=== PATIENT | male | born 1955 | race Caucasian/White ===

== ENCOUNTER → 2016-04-14 | Outpatient (CLI) | payer MEDICARE ==
[~2016-04-14] MED LIST: ADV250INH INH; COMBAER6 INH; DUONSOL INH; LEVO500T32 PO; MOTR200T44 PO; PERC5TAB6 PO; PRED10PA PO; PROA1AER INH; TYLE325T5 PO; ZOLO100T PO; [UNRECOGNIZED DRUG - CODE] PO
--- NOTE | 2016-04-14 14:01 | REP ---
THREE-PHASE BONE SCAN OF THE HIPS AND PELVIS REGION. HISTORY: Renal stones with nephrostomy tube, right hip pain post hip replacement [address] study August 13, 2015. TECHNIQUE: 20.8 mCi technetium 99m MDP is injected and standard three-phase imaging was acquired. SCINTIGRAPHIC FINDINGS: The anterior and posterior pelvic flow images are normal. Blood pool images show photopenia related to the prosthetic components of the right hip. No hyperemia is appreciated. Delayed scan images show no evidence to suggest loosening or infection. IMPRESSION: Expected findings post right hip arthroplasty. Signed by Canelo Pepper MD 04/14/2016 03:10 P
== END ==
LOC: M RAD 10:00
PROVIDERS: ATTEND Orthopaedic Surgery
DX: M16.11 Unilateral primary osteoarthritis, right hip (principal); Z96.641 Presence of right artificial hip joint
CPT/HCPCS: 78315; A9503

== ENCOUNTER → 2016-04-25 | Outpatient (CLI) | payer MEDICARE ==
[2016-04-25 15:23] LABS: RBC ADVIA BF 0.06; RBC CALC. BF 60000 (< 10mm3 cells/uL); WBC ADVIA BF 7.3; WBC CALC. BF 7300 cells/uL (0-20)
[2016-04-25 15:24] LABS: SYNOVIAL FLUID COLOR ORANGE (YELLOW)
[2016-04-25 15:25] LABS: BF DIFF IF INDICATED? YES (NO)
[2016-04-25 15:38] LABS: HCT SOURCE RIGHT HIP
[2016-04-25 15:39] LABS: CC BF DIFF EXAM CYTOCENTRIFUGE
--- NOTE | 2016-04-25 16:50 | REP ---
RIGHT HIP ASPIRATION: The procedure was performed under the direct supervision of Dr. Pepper. The risks and benefits of the procedure were explained to the patient and informed consent was obtained. The right hip prosthesis was localized using fluoroscopic guidance. The skin was prepped and draped in a sterile fashion. 1% Lidocaine was used as a local anesthetic. Using fluoroscopic guidance, a #22-gauge spinal needle was inserted and advanced to the prosthetic femoral neck. Approximately 2 mL of yellowish fluid was withdrawn and sent to the lab. The patient tolerated the procedure well and there were no immediate complications. 3 seconds of fluoroscopy time was utilized for this procedure. Reviewed by JAY Arenas 04/25/2016 05:05 PEdited and Signed by Canelo Pepper MD 04/26/2016 12:29 P
== END ==
LOC: M RADPRO 10:24
PROVIDERS: ATTEND Orthopaedic Surgery
DX: M25.551 Pain in right hip (principal); Z96.641 Presence of right artificial hip joint

== ENCOUNTER → 2016-04-28 | Outpatient (CLI) | payer MEDICARE ==
[2016-04-28 09:39] LABS: BASO % 0.5 % (0.0-1.0); EOS # 0.1 K/mm3 (0.0-0.50); EOS % 2.3 % (0.0-3.0); LARGE UNSTAINED CELL # 0.1 K/mm3 (0.0-0.4); LARGE UNSTAINED CELL % 2.4 % (0.0-4.0); LYMPH # 1.6 K/mm3 (1.5-4.5); LYMPH % 27.2 % (24.0-44.0); MEAN CORPUSCULAR HEMOGLOBIN 30.1 pg (27.0-33.0); MEAN CORPUSCULAR HGB CONC 33.8 g/dl (32.0-36.5); MEAN CORPUSCULAR VOLUME 89.1 fl (80.0-96.0); MONO # 0.3 K/mm3 (0.0-0.8); MONO % 4.7 % (0.0-5.0); NEUTROPHILS # 3.6 K/mm3 (1.8-7.7); NEUTROPHILS % 62.9 % (36.0-66.0); PLATELET COUNT, AUTOMATED 193 k/mm3 (150-450); RED CELL DISTRIBUTION WIDTH 11.8 % (11.5-14.5); WHITE BLOOD COUNT 5.7 K/mm3 (4.0-10.0)
[2016-04-28 10:02] LABS: ALBUMIN 3.8 GM/DL (3.2-5.2); ALBUMIN/GLOBULIN RATIO 1.31 (1.00-1.93); ALKALINE PHOSPHATASE 93 U/L (45-117); ALT/SGPT 24 U/L (12-78); ANION GAP 8 MEQ/L (8-16); AST/SGOT 13 U/L (15-37); BILIRUBIN,TOTAL 0.4 MG/DL (0.2-1.0); BLOOD UREA NITROGEN 10 MG/DL (7-18); CALCIUM LEVEL 8.4 MG/DL (8.8-10.2); CARBON DIOXIDE LEVEL 27 MEQ/L (21-32); CHLORIDE LEVEL 105 MEQ/L (98-107); CHOLESTEROL LEVEL 218 MG/DL (<200); CREATININE FOR GFR 0.82 MG/DL (0.70-1.30); GLOMERULAR FILTRATION RATE > 60.0 (>49); GLUCOSE, FASTING 109 MG/DL (80-110); POTASSIUM SERUM 4.1 MEQ/L (3.5-5.1); SODIUM LEVEL 140 MEQ/L (136-145); TOTAL PROTEIN 6.7 GM/DL (6.4-8.2); TRIGLYCERIDES LEVEL 156 MG/DL (<150)
== END ==
LOC: M LAB 08:48
PROVIDERS: ATTEND Internal Medicine
DX: N40.1 Benign prostatic hyperplasia with lower urinary tract symptoms (principal); I10 Essential (primary) hypertension; M16.11 Unilateral primary osteoarthritis, right hip; M62.838 Other muscle spasm; Z96.641 Presence of right artificial hip joint

== ENCOUNTER → 2016-04-28 | Outpatient (CLI) | payer MEDICARE ==
[2016-04-28 09:40] LABS: BASO % 0.4 % (0.0-1.0); EOS # 0.1 K/mm3 (0.0-0.50); EOS % 2.1 % (0.0-3.0); LARGE UNSTAINED CELL # 0.2 K/mm3 (0.0-0.4); LARGE UNSTAINED CELL % 2.8 % (0.0-4.0); LYMPH # 1.4 K/mm3 (1.5-4.5); LYMPH % 25.9 % (24.0-44.0); MEAN CORPUSCULAR HEMOGLOBIN 30.4 pg (27.0-33.0); MEAN CORPUSCULAR HGB CONC 34.2 g/dl (32.0-36.5); MEAN CORPUSCULAR VOLUME 88.9 fl (80.0-96.0); MONO # 0.3 K/mm3 (0.0-0.8); MONO % 5.4 % (0.0-5.0); NEUTROPHILS # 3.5 K/mm3 (1.8-7.7); NEUTROPHILS % 63.4 % (36.0-66.0); PLATELET COUNT, AUTOMATED 206 k/mm3 (150-450); RED CELL DISTRIBUTION WIDTH 11.8 % (11.5-14.5); WHITE BLOOD COUNT 5.5 K/mm3 (4.0-10.0)
[2016-04-28 10:14] LABS: ERYTHROCYTE SEDIMENTATION RATE 7 mm/hr (0-20)
[2016-04-30 00:08] LABS: Lyme Disease IgG/IgM Antibodie <0.91 ISR (0.00-0.90); Lyme Disease IgM Ab Quantitati <0.80 index (0.00-0.79)
== END ==
LOC: M LAB 08:43
PROVIDERS: ATTEND Orthopaedic Surgery
DX: M16.11 Unilateral primary osteoarthritis, right hip (principal); M62.838 Other muscle spasm; Z96.641 Presence of right artificial hip joint

== ENCOUNTER → 2016-05-18 | Outpatient (CLI) | payer MEDICARE, MEDICAID ==
--- NOTE | 2016-05-18 12:55 | REP ---
Clinical: Right hip pain status post arthroplasty. Technique: Axial noncontrast images of the hip with coronal and sagittal re-formations. Findings: The acetabular and femoral components of the hip prosthesis are normal in position and appearance. There is no evidence for periprosthetic lucencies or osseous abnormalities. There is no evidence for fracture or dislocation. No periosteal reaction is appreciated. The surrounding musculature and soft tissues are normal in appearance. No abnormal fluid collections or inflammatory changes are identified. Impression: Normal noncontrast hip CT with normal appearance and positioning to the prosthesis. Signed by Andrei Rosenberg MD 05/18/2016 12:45 P
== END ==
LOC: M RAD 11:55
PROVIDERS: ATTEND Orthopaedic Surgery
DX: M25.551 Pain in right hip (principal); Z96.641 Presence of right artificial hip joint

== ENCOUNTER 2016-07-01 16:23 | Emergency (ER) | payer MEDICAID, MEDICARE ==
[~2016-07-01] VITALS: Ht 157.5 cm; Wt 74.4 kg
[2016-07-01 16:23] VITALS: BP 162/96
[2016-07-01] MEDS ORDERED: SIME180C PO (19:47)
[2016-07-01] MEDS ORDERED: COLA100C3 PO (19:47)
--- NOTE | 2016-07-01 20:58 | REP ---
Abdominal series: Three views. History: Constipation, abdominal bloating. Comparison study May 07, 2015. Findings: Upright chest radiograph shows no evidence of infiltrate or free subdiaphragmatic air. Heart is not enlarged. No change from comparison study May 07, 2015. Supine and erect views of the abdomen show a right hip replacement. There is air and stool in a nondistended colon. There is a solitary loop of left mid abdominal small bowel. Psoas margins are symmetric. Flank stripes are intact. Vascular calcification is seen. No bony abnormality is appreciated. Impression: Nonspecific left central abdominal bowel loop. No acute abnormality seen. Signed by Canelo Pepper MD 07/02/2016 07:52 A
== END 2016-07-01 20:09 | disposition home or self-care (01) ==
LOC: M ED 17:29
DX: R30.0 Dysuria (principal); R19.7 Diarrhea, unspecified; Z79.899 Other long term (current) drug therapy; Z79.1 Long term (current) use of non-steroidal anti-inflammatories (NSAID); G43.909 Migraine, unspecified, not intractable, without status migrainosus; J44.9 Chronic obstructive pulmonary disease, unspecified; M54.9 Dorsalgia, unspecified; F32.9 Major depressive disorder, single episode, unspecified

== ENCOUNTER → 2016-07-20 | Outpatient (CLI) | payer MEDICARE ==
[~2016-07-20] MED LIST changes: +COLA100C3 PO; +SIME180C PO
--- NOTE | 2016-07-20 14:44 | REP ---
REASON: Esophageal disease. COMPARISON: 08/13/2015 also without contrast. The lack of intravenous contrast decrease the sensitivity of the exam. There is no significant change in the appearance of the lung bases. There are nodules status quo. Limited evaluation of the solid intra-abdominal organs and gallbladder show no gross abnormalities or significant changes from the prior exam. Limited evaluation of the pancreas, adrenal glands, and kidneys show no significant changes from the prior exam. There is a simple Bosniak class I left renal cyst status quo. Limited evaluation of the abdominal aorta and para-aortic region show no gross abnormalities or significant changes from the prior exam. There is no free fluid or free air in the abdomen. There is no evidence of an intra-abdominal mass or adenopathy. The bowel loops and their mesenteries are essentially unchanged and remain within normal limits. CT PELVIS: The bowel loops and their mesenteries are within normal limits. There is spray artifact arising from a right hip prosthesis obscuring multiple pelvic images. There is no mass or adenopathy. There is no free fluid or free air. Bone window technique through the exam shows no acute change in the osseous structures compared to the prior exam. IMPRESSION: No acute intra-abdominal or intrapelvic disease. Findings as described above. Signed by Carroll Blue DO 07/20/2016 02:47 P
== END ==
LOC: M RAD 13:09
PROVIDERS: ATTEND Internal Medicine
DX: K22.9 Disease of esophagus, unspecified (principal)

== ENCOUNTER → 2016-07-25 | Outpatient (CLI) | payer MEDICARE ==
[~2016-07-25] MED LIST changes: +E-Z-GAS II EFFERVESCENT PACKET (SODIUM BICARB./CITRIC ACID/SIMETHICONE) As Ordered ONE; +E-Z-HD 98% w/w 340GM SUSP BTL As Ordered ONE; +E-Z-PAQUE 96% w/w SUSP 176GM BTL As Ordered ONE
--- NOTE | 2016-07-25 16:35 | REP ---
ESOPHAGRAM: The procedure was performed under the direct supervision of Dr. Trivedi. The images were reviewed with Dr. Trivedi. This exam is in conjunction with an upper GI and small bowel through. Those exams will be dictated separately. A single view PA chest x-ray is submitted as a core loader film. There is no change compared to a previous chest x-ray performed on 07/01/2016. Liquid barium and gas-producing granules were given in the erect position as well as liquid barium in the prone oblique positions in order to perform a double-contrast esophagram examination. The oral and pharyngeal stages of deglutition are unremarkable. Esophageal transport is prompt and efficient and there is no esophagitis, stricture, mucosal ring, or hiatal hernia. Gastroesophageal reflux is not demonstrated on this examination. IMPRESSION: Double contrast esophagram examination within normal limits. This exam, in conjunction with the upper GI and small bowel follow through, had a total fluoroscopy time of 3 minutes and 39 seconds. Reviewed by JAY Arenas 07/25/2016 04:54 PEdited and Signed by Marcos Trivedi MD 07/25/2016 05:38 P
--- NOTE | 2016-07-25 16:40 | REP ---
UPPER GI, AIR CONTRAST, AND SMALL BOWEL FOLLOW THROUGH: The procedure was performed under the direct supervision of Dr. Trivedi. The images were reviewed with Dr. Trivedi. The package line operator film shows no organomegaly or pathological masses. The intestinal gas pattern is nonspecific. There are vascular calcifications identified. The patient is status post right hip arthroplasty. An esophagram was performed and dictated separately. Liquid barium and gas-producing granules were given in the erect position as well as liquid barium in the prone oblique position in order to perform a double contrast upper GI and small bowel follow through examination. The stomach curry are normally outlined. The rugal folds are smooth and regular. There is no gastritis, neoplasm or ulcer disease. The duodenal curry are normally outlined. The mucosal folds are smooth and regular. There is no duodenitis, pancreatitis, peptic ulcer disease or neoplasm. The visualized portion of the proximal small bowel appears normal in course and caliber. The barium column was followed through the small bowel to the level of the terminal ileum. Small bowel transit time is rapid as contrast is seen in the descending colon on the 0 minute film. During fluoroscopy gentle palpation shows all loops are freely moveable and pliable. There are no fixed or angulated loops. The small bowel mucosal pattern is normal in course and caliber. There is no transition to suggest a partial small bowel obstruction. Spot filming of the terminal ileum shows it to be unremarkable. IMPRESSION: There is rapid small bowel transit time as contrast is seen in the descending colon on the 0 minute film. Otherwise, unremarkable double contrast upper GI and small bowel follow through examination. This study in conjunction with the esophagram had a total fluoroscopy time of 3 minutes and 39 seconds. Reviewed by JAY Arenas 07/25/2016 04:56 PEdited and Signed by Marcos Trivedi MD 07/25/2016 05:38 P
== END ==
LOC: M RAD 09:43
PROVIDERS: ATTEND Internal Medicine
DX: K22.9 Disease of esophagus, unspecified (principal)

== ENCOUNTER → 2016-11-03 | Outpatient (CLI) | payer MEDICAID, MEDICARE ==
[~2016-11-03] MED LIST changes: -COLA100C3 PO; +COLA100C5 PO; -E-Z-GAS II EFFERVESCENT PACKET (SODIUM BICARB./CITRIC ACID/SIMETHICONE) As Ordered ONE; -E-Z-HD 98% w/w 340GM SUSP BTL As Ordered ONE; -E-Z-PAQUE 96% w/w SUSP 176GM BTL As Ordered ONE; +LEVO500T3 PO; -LEVO500T32 PO; +PERC5TAB12 PO; -PERC5TAB6 PO; -PROA1AER INH; +PROAAER10 INH
[2016-11-03 14:22] LABS: BASO % 0.4 % (0.0-1.0); EOS # 0.1 K/mm3 (0.0-0.50); EOS % 2.5 % (0.0-3.0); LARGE UNSTAINED CELL # 0.1 K/mm3 (0.0-0.4); LARGE UNSTAINED CELL % 1.5 % (0.0-4.0); LYMPH # 1.2 K/mm3 (1.5-4.5); LYMPH % 19.4 % (24.0-44.0); MEAN CORPUSCULAR HEMOGLOBIN 31.1 pg (27.0-33.0); MEAN CORPUSCULAR HGB CONC 34.7 g/dl (32.0-36.5); MEAN CORPUSCULAR VOLUME 89.5 fl (80.0-96.0); MONO # 0.3 K/mm3 (0.0-0.8); MONO % 5.6 % (0.0-5.0); NEUTROPHILS # 4.1 K/mm3 (1.8-7.7); NEUTROPHILS % 70.7 % (36.0-66.0); PLATELET COUNT, AUTOMATED 183 k/mm3 (150-450); RED CELL DISTRIBUTION WIDTH 12.4 % (11.5-14.5); WHITE BLOOD COUNT 5.8 K/mm3 (4.0-10.0)
[2016-11-03 14:46] LABS: ALBUMIN/GLOBULIN RATIO 1.18 (1.00-1.93); ALKALINE PHOSPHATASE 96 U/L (45-117); ALT/SGPT 26 U/L (12-78); AMYLASE 47 U/L (25-115); ANION GAP 3 MEQ/L (8-16); AST/SGOT 10 U/L (15-37); BILIRUBIN,TOTAL 0.3 MG/DL (0.2-1.0); BLOOD UREA NITROGEN 11 MG/DL (7-18); CARBON DIOXIDE LEVEL 30 MEQ/L (21-32); CHLORIDE LEVEL 106 MEQ/L (98-107); CREATININE FOR GFR 0.68 MG/DL (0.70-1.30); FREE T4 0.99 NG/DL (0.76-1.46); GLOMERULAR FILTRATION RATE > 60.0 (>49); GLUCOSE, FASTING 84 MG/DL (80-110); POTASSIUM SERUM 4.1 MEQ/L (3.5-5.1); SODIUM LEVEL 139 MEQ/L (136-145); TOTAL PROTEIN 7.4 GM/DL (6.4-8.2)
== END ==
LOC: M LAB 13:47
PROVIDERS: ATTEND Internal Medicine
DX: I10 Essential (primary) hypertension (principal); K22.9 Disease of esophagus, unspecified

== ENCOUNTER → 2017-02-13 | Outpatient (CLI) | payer MEDICARE ==
--- NOTE | 2017-02-13 13:27 | REP ---
Clinical: Acute bronchitis. Technique: PA and lateral. Comparison: 07/25/2016. Findings: Mediastinum and cardiac silhouette are within normal limits and stable. Lung farmer demonstrate chronic stable interstitial changes and trace right middle lobe atelectasis cannot be excluded. No effusion or pneumothorax. Skeletal structures are intact. Impression: Chronic interstitial changes. Cannot exclude trace right middle lobe atelectasis. Signed by Andrei Rosenberg MD 02/13/2017 01:18 P
[2017-02-13 13:49] LABS: BASO % 0.3 % (0.0-1.0); EOS # 0.1 10^3/uL (0.0-0.50); EOS % 0.5 % (0.0-3.0); IMMATURE GRANULOCYTE % 0.4 % (0-0); LYMPH # 0.7 10^3/uL (1.5-4.5); LYMPH % 5.5 % (24.0-44.0); MEAN CORPUSCULAR HGB CONC 35.2 g/dl (32.0-36.5); MONO # 0.6 10^3/uL (0.0-0.8); MONO % 5.1 % (0.0-5.0); NEUTROPHILS # 10.3 10^3/uL (1.8-7.7); NEUTROPHILS % 88.2 % (36.0-66.0); PLATELET COUNT, AUTOMATED 193 10^3/uL (150-450); RED CELL DISTRIBUTION WIDTH 12.8 % (11.5-14.5); WHITE BLOOD COUNT 11.7 10^3/uL (4.0-10.0)
[2017-02-13 14:41] LABS: ALBUMIN 3.6 GM/DL (3.2-5.2); ALBUMIN/GLOBULIN RATIO 1.33 (1.00-1.93); ALKALINE PHOSPHATASE 77 U/L (45-117); ALT/SGPT 19 U/L (12-78); ANION GAP 9 MEQ/L (8-16); AST/SGOT 10 U/L (7-37); BILIRUBIN,TOTAL 0.2 MG/DL (0.2-1.0); BLOOD UREA NITROGEN 13 MG/DL (7-18); CALCIUM LEVEL 8.5 MG/DL (8.8-10.2); CARBON DIOXIDE LEVEL 27 MEQ/L (21-32); CHLORIDE LEVEL 105 MEQ/L (98-107); CHOLESTEROL LEVEL 250 MG/DL (<200); CREATININE FOR GFR 0.66 MG/DL (0.70-1.30); GLOMERULAR FILTRATION RATE > 60.0 (>49); GLUCOSE, FASTING 109 MG/DL (80-110); POTASSIUM SERUM 4.1 MEQ/L (3.5-5.1); SODIUM LEVEL 141 MEQ/L (136-145); TOTAL PROTEIN 6.3 GM/DL (6.4-8.2); TRIGLYCERIDES LEVEL 220 MG/DL (<150)
--- NOTE | 2017-02-13 21:15 | ECGEPIP ---
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
== END ==
LOC: M LAB 12:24
PROVIDERS: ATTEND Internal Medicine
DX: J84.9 Interstitial pulmonary disease, unspecified (principal); J44.0 Chronic obstructive pulmonary disease with (acute) lower respiratory infection

== ENCOUNTER → 2017-02-20 | Outpatient (REF) | payer MEDICARE | LOC: M LAB REF 16:26 | PROVIDERS: ATTEND Internal Medicine | DX: J20.9 Acute bronchitis, unspecified (principal) ==

== ENCOUNTER → 2017-03-10 | Outpatient (CLI) | payer MEDICARE ==
--- NOTE | 2017-03-10 15:20 | REP ---
CT study of the chest without contrast: History: Abnormal lung field findings. Comparison chest x-ray February 13, 2017. Comparison chest CT study February 05, 2015. CT findings: There is linear plate-like atelectasis in the lingula as well as in the right middle lobe. No pleural effusion or pericardial effusion is seen. Some vascular calcification is noted. No hilar or mediastinal mass or adenopathy is observed. No adrenal lesion is seen on either side. Visualized upper abdominal structures are unremarkable. No bony destructive lesion is seen. There are multiple subcentimeter noncalcified pulmonary nodules scattered about the lung farmer bilaterally. The largest of these is 4 mm. They are unchanged from the comparison CT study of February 05, 2015. No new pulmonary nodule is appreciated. There is some mucoid material along the inferior wall of the left mainstem bronchus on today's CT study. No other endobronchial lesion is seen. Impression: Multiple stable pulmonary nodules 4 mm in size and smaller. Right middle lobe and lingular plate-like atelectasis. Otherwise no acute disease. Signed by Canelo Pepper MD 03/10/2017 04:16 P
== END ==
LOC: M RAD 10:23
PROVIDERS: ATTEND Internal Medicine Pulmonary Disease
DX: R91.8 Other nonspecific abnormal finding of lung field (principal)

== ENCOUNTER → 2017-07-31 | Outpatient (CLI) | payer MEDICARE, MEDICAID ==
[2017-07-31 15:53] LABS: BASO % 0.2 % (0.0-1.0); EOS # 0.1 10^3/uL (0.0-0.50); EOS % 1.7 % (0.0-3.0); HEMATOCRIT 41.2 % (42.0-52.0); HEMOGLOBIN 14.5 g/dl (13.5-17.5); IMMATURE GRANULOCYTE % 0.4 % (0-3.0); LYMPH % 18.1 % (24.0-44.0); MEAN CORPUSCULAR HEMOGLOBIN 30.5 pg (27.0-33.0); MEAN CORPUSCULAR HGB CONC 35.2 g/dl (32.0-36.5); MEAN CORPUSCULAR VOLUME 86.6 fl (80.0-96.0); MONO # 0.4 10^3/uL (0.0-0.8); MONO % 6.8 % (0.0-5.0); NEUTROPHILS # 3.8 10^3/uL (1.8-7.7); NEUTROPHILS % 72.8 % (36.0-66.0); PLATELET COUNT, AUTOMATED 194 10^3/uL (150-450); RED BLOOD COUNT 4.76 10^6/uL (4.30-6.10); RED CELL DISTRIBUTION WIDTH 11.9 % (11.5-14.5); WHITE BLOOD COUNT 5.3 10^3/uL (4.0-10.0)
[2017-07-31 15:55] LABS: APPEARANCE, URINE HAZY (CLEAR); BACTERIA, URINE AUTO NEGATIVE (NEGATIVE); BILIRUBIN, URINE AUTO NEGATIVE (NEGATIVE); BLOOD, URINE BLOOD NEGATIVE (NEGATIVE); COLOR, URINE YELLOW (YELLOW); GLUCOSE, URINE (UA) AUTO NEGATIVE (NEGATIVE); KETONE, URINE AUTO NEGATIVE (NEGATIVE); LEUKOCYTE ESTERASE, URINE AUTO NEGATIVE (NEGATIVE); MUCUS, URINE SMALL (NEGATIVE); NITRITE, URINE AUTO NEGATIVE (NEGATIVE); PROTEIN, URINE AUTO NEGATIVE (NEGATIVE); RBC, URINE AUTO 2 /HPF (0-3); SPECIFIC GRAVITY URINE AUTO 1.023 (1.002-1.035); SQUAMOUS EPITHELIAL CELL UR AU 0 /HPF (0-6); UROBILINOGEN, URINE AUTO 0.2 mg/dL (0.0-2.0); WBC, URINE AUTO 1 /HPF (0-3)
[2017-07-31 16:42] LABS: ALBUMIN 3.9 GM/DL (3.2-5.2); ALBUMIN/GLOBULIN RATIO 1.22 (1.00-1.93); ALKALINE PHOSPHATASE 86 U/L (45-117); ALT/SGPT 22 U/L (12-78); ANION GAP 7 MEQ/L (8-16); AST/SGOT 17 U/L (7-37); BILIRUBIN,TOTAL 0.5 MG/DL (0.2-1.0); BLOOD UREA NITROGEN 9 MG/DL (7-18); CALCIUM LEVEL 8.6 MG/DL (8.8-10.2); CARBON DIOXIDE LEVEL 25 MEQ/L (21-32); CHLORIDE LEVEL 108 MEQ/L (98-107); CHOLESTEROL LEVEL 219 MG/DL (<200); CHOLESTEROL RISK RATIO 5.341 (<5); CREATININE FOR GFR 0.83 MG/DL (0.70-1.30); GLOMERULAR FILTRATION RATE > 60.0 (>49); GLUCOSE, FASTING 100 MG/DL (70-100); HDL CHOLESTEROL 41 MG/DL (>40); LDL CHOLESTEROL 142.6 MG/DL (<100); NON-HDL-C 178 MG/DL; POTASSIUM SERUM 4.2 MEQ/L (3.5-5.1); PROSTATIC SPECIFIC AG MONITOR 0.85 NG/ML (< 4.0); SODIUM LEVEL 140 MEQ/L (136-145); THYROID STIMULATING HORMONE 0.722 uIU/ML (0.358-3.740); TOTAL PROTEIN 7.1 GM/DL (6.4-8.2); TRIGLYCERIDES LEVEL 177 MG/DL (<150)
== END ==
LOC: M LAB 15:24
DX: N40.1 Benign prostatic hyperplasia with lower urinary tract symptoms (principal); I10 Essential (primary) hypertension
CPT/HCPCS: 84443

== ENCOUNTER → 2018-05-05 | Outpatient (CLI) | payer MEDICARE ==
--- NOTE | 2018-05-06 10:10 | REP ---
RIGHT RIB SERIES: Four views of the right ribs are performed. I see no fracture or bone lesion. An accompanying PA view of the chest demonstrates no acute infiltrate, pneumothorax, or pleural effusion. Heart is not significantly enlarged. There is mild calcification of the thoracic aorta. IMPRESSION: No evidence of right rib fracture. Electronically Signed by Marcos Trivedi MD 05/06/2018 06:59 P
== END ==
LOC: M WUC 15:35
PROVIDERS: ATTEND Physician Assistant
DX: S20.211A Contusion of right front wall of thorax, initial encounter (principal); X58.XXXA Exposure to other specified factors, initial encounter; Y92.89 Other specified places as the place of occurrence of the external cause; Y93.9 Activity, unspecified; Y99.9 Unspecified external cause status

== ENCOUNTER → 2018-05-17 | Outpatient (CLI) | payer MEDICARE ==
--- NOTE | 2018-05-17 17:37 | REP ---
Low-dose lung screening CT: Comparison is the chest CT dated 03/10/2017. Now The studies performed without IV contrast. The images are presented at lung windowing only. There are multiple tiny lung nodules bilaterally measuring up to 4 mm, unchanged in size or number from the prior study. There are no acute infiltrates or pleural effusions. There are no new lung nodules. Impression: Category II low-dose lung screening CT. The incidence of malignancy is less than 1%. Annual follow-up lung screening CT is recommended. Electronically Signed by Marcos Gaitan MD 05/17/2018 05:28 P
== END ==
LOC: M RAD 13:49
PROVIDERS: ATTEND Internal Medicine Pulmonary Disease
DX: Z87.891 Personal history of nicotine dependence (principal); Z12.2 Encounter for screening for malignant neoplasm of respiratory organs

== ENCOUNTER → 2018-05-30 | Outpatient (REF) | payer MEDICARE, MEDICAID ==
[2018-05-30 18:56] LABS: ALT/SGPT 20 U/L (12-78); BILIRUBIN,TOTAL 0.3 MG/DL (0.2-1.0); BLOOD UREA NITROGEN 14 MG/DL (7-18); C REACTIVE PROTEIN QUANTITATIV < 0.30 MG/DL (0.00-0.30); CALCIUM LEVEL 8.2 MG/DL (8.8-10.2); CARBON DIOXIDE LEVEL 27 MEQ/L (21-32); CHLORIDE LEVEL 108 MEQ/L (98-107); CREATININE FOR GFR 0.87 MG/DL (0.70-1.30); GLOMERULAR FILTRATION RATE > 60.0 (>49); GLUCOSE, FASTING 101 MG/DL (70-100); POTASSIUM SERUM 3.8 MEQ/L (3.5-5.1); RHEUMATOID FACTOR QUANT < 10.0 IU/ML (<15.0); SODIUM LEVEL 143 MEQ/L (136-145); TOTAL PROTEIN 6.9 GM/DL (6.4-8.2)
[2018-05-30 19:06] LABS: HEMATOCRIT 41.7 % (42.0-52.0); HEMOGLOBIN 14.4 g/dl (13.5-17.5); MEAN CORPUSCULAR HGB CONC 34.5 g/dl (32.0-36.5); MEAN CORPUSCULAR VOLUME 86.9 fl (80.0-96.0); PLATELET COUNT, AUTOMATED 182 10^3/uL (150-450)
[2018-05-30 19:41] LABS: ERYTHROCYTE SEDIMENTATION RATE 6 mm/hr (0-20)
[2018-06-02 00:07] LABS: ANTINUCLEAR ANTIBODIES DIRECT Negative (Negative); Lyme Disease IgG/IgM Antibodie <0.91 ISR (0.00-0.90); Lyme Disease IgM Ab Quantitati <0.80 index (0.00-0.79)
== END ==
LOC: M LABDRWCV 17:08 → M LAB REF 17:08
PROVIDERS: ATTEND Internal Medicine
DX: M06.4 Inflammatory polyarthropathy (principal)

== ENCOUNTER 2018-07-14 16:09 | Inpatient (IN) | payer MEDICAID, MEDICARE ==
[~2018-07-14] VITALS: Ht 157.5 cm; Wt 68.2 kg
[2018-07-14] MEDS ORDERED: MOBI4TAB PO (16:24)
[2018-07-14] MEDS ORDERED: SPIR1CAP INH (16:24)
[2018-07-14] MEDS ORDERED: PANT40TA3 PO (16:24)
[2018-07-14] MEDS: IPRATROPIUM 0.5MG/ALBUTEROL 2.5MG INH SOL UD 3ML (DUONEB)(J7620) NEB PRN ×2 (16:38→16:58)
[2018-07-14] MEDS ORDERED: methylPREDNISolone INJ 125 MG/2 ML VIAL (J2930) IV ONE (16:45)
[2018-07-14 16:59] LABS: ABG BASE EXCESS 0.2 (-2.0-2.0); ABG HCO3 24.4 MEQ/L (22.0-26.0); ABG O2 SATURATION 93.1 % (95.0-99.0); ABG PARTIAL PRESSURE CO2 38.4 mmHg (35.0-45.0); ABG STANDARD HCO3 24.5 MEQ/L (22.0-26.0); ABG TOTAL CO2 25.6 MEQ/L (23.0-31.0); ABG pH (ARTERIAL) 7.421 UNITS (7.350-7.450)
[2018-07-14 17:10] LABS: BASO % 0.2 % (0.0-1.0); HEMATOCRIT 40.9 % (42.0-52.0); HEMOGLOBIN 14.4 g/dl (13.5-17.5); LYMPH # 0.3 10^3/uL (1.5-4.5); LYMPH % 5.3 % (24.0-44.0); MEAN CORPUSCULAR HEMOGLOBIN 30.6 pg (27.0-33.0); MEAN CORPUSCULAR HGB CONC 35.2 g/dl (32.0-36.5); MONO # 0.1 10^3/uL (0.0-0.8); MONO % 1.1 % (0.0-5.0); NEUTROPHILS # 5.8 10^3/uL (1.8-7.7); NEUTROPHILS % 92.8 % (36.0-66.0); PLATELET COUNT, AUTOMATED 183 10^3/uL (150-450); WHITE BLOOD COUNT 6.3 10^3/uL (4.0-10.0)
[2018-07-14 17:32] LABS: BLOOD UREA NITROGEN 14 MG/DL (7-18); CALCIUM LEVEL 8.3 MG/DL (8.8-10.2); CARBON DIOXIDE LEVEL 28 MEQ/L (21-32); CHLORIDE LEVEL 105 MEQ/L (98-107); CPK CREATINE PHOSPHOKINASE 105 U/L (39-308); CREATININE FOR GFR 0.79 MG/DL (0.70-1.30); GLOMERULAR FILTRATION RATE > 60.0 (>49); GLUCOSE, FASTING 194 MG/DL (70-100); NT-PRO BNP 55 PG/ML (<125); POTASSIUM SERUM 4.2 MEQ/L (3.5-5.1); SODIUM LEVEL 138 MEQ/L (136-145); THYROID STIMULATING HORMONE 0.072 uIU/ML (0.358-3.740); TROPONIN I < 0.02 NG/ML (< 0.10)
[2018-07-14 19:06] VITALS: O2SAT 84
[2018-07-14] MEDS ORDERED: ISOVUE-370 76% 100ML VIAL (Q9967) As Ordered ONE (19:35)
[2018-07-14] MEDS ORDERED: ALBU83IN NEB (20:13)
[2018-07-14] MEDS ORDERED: OXYC10TA3 PO (20:13)
[2018-07-14] MEDS ORDERED: IPRA0.00 IN (20:13)
[2018-07-14] MEDS ORDERED: PRED10PA2 PO (20:15)
[2018-07-14] MEDS ORDERED: ACETAMINOPHEN TAB 650MG DOSE (2X325MG) PO PRN (20:30)
[2018-07-14] MEDS ORDERED: PERCOCET 5MG/325MG TAB PO PRN (20:30)
[2018-07-14] MEDS ORDERED: IPRATROPIUM 0.5MG/ALBUTEROL 2.5MG INH SOL UD 3ML (DUONEB)(J7620) NEB PRN (20:30)
--- NOTE | 2018-07-14 20:38 | REPVR ---
EXAM: CT Angiography Chest With Contrast EXAM DATE/TIME: 07/14/2018 7:38 PM CLINICAL HISTORY: 63 years old, male; Abnormal findings; Abnormal radiologic exam of lung or chest and lung mass or nodule; Not specified; Additional info: New lung nodule on CT TECHNIQUE: Imaging protocol: Axial computed tomographic angiography images of the chest with intravenous contrast using CT angiography protocol. Coronal and sagittal reformatted images were created and reviewed. 3D rendering: MIP reconstructed images were created and reviewed. Radiation optimization: All CT scans at this facility use at least one of these dose optimization techniques: automated exposure control; mA and/or kV adjustment per patient size (includes targeted exams where dose is matched to clinical indication); or iterative reconstruction. Contrast material: ISOVUE 370; Contrast volume: 75 ml; Contrast route: IV; COMPARISON: CT Chest without contrast 03/10/2017 10:52 AM FINDINGS: Pulmonary arteries: The main pulmonary artery measures 27 mm. No pulmonary embolism is identified. Aorta: The ascending thoracic aorta measures 28 mm. Lungs: Slight interstitial prominence with minimal fibro-atelectatic change in the right middle lobe adjacent to the major fissure. Pleural space: Normal. No pneumothorax. No pleural effusion. Heart: Normal. No cardiomegaly. No pericardial effusion. Lymph nodes: Unremarkable. No enlarged lymph nodes. Bones/joints: Slight anterior wedge configuration of T7 which appears to be chronic. Healing fractures of the right 7th, 9th and 10th ribs laterally. Soft tissues: Unremarkable. IMPRESSION: 1. Slight interstitial prominence with minimal fibro-atelectatic change in the right middle lobe adjacent to the major fissure laterally. 2. Slight wedge configuration of T7 which appears chronic and healing fractures of the right 7th, 9th and 10th ribs laterally. 3. Otherwise negative CTA chest. No pulmonary embolism is identified. Electronically signed by: Michael Solo On 07/14/2018 20:37:23 PM
[2018-07-14] MEDS: ENOXAPARIN 40 MG/0.4 ML SYRINGE (J1650) SC SCH (21:00)
[2018-07-14] MEDS: ADVAIR HFA 115/21MCG INHALER INH SCH (21:00)
[2018-07-14 22:00] VITALS: BP 147/87
--- NOTE | 2018-07-14 22:28 | HPEPDOC ---
General Date of Admission Jul 14, 2018 at 20:21 Chief Complaint The patient is a 63-year-old male admitted with a reason for visit of Parainflu dm Infection. History of Present Illness 63-year-old male with past medical history of depression, chronic back pain, and COPD presents to the ER with a chief complaint of worsening cough productive of yellowish/brown sputum over the last several days. The patient states in addit ion that he has also been having worsening shortness of breath and exertional dyspnea during this time. He reports that he tried taking his inhaler therapy at home but denied any improvement. He also notes subjective fevers, chills, and a runny nose. He denies any sick contacts, recent travel, chest pain, palpitations, abdominal pain, orthopnea, PND, lower extremity swelling, or any nausea/vomiting/diarrhea. In the ER, the patient was noted to be hypoxic and requiring 2 L of oxygen. He was found to be positive for parainfluenza. The patient will be admitted under the hospitalist service for further evaluation and management. Home Medications Scheduled Meloxicam (Mobic) 7.5 Mg Tablet, 7.5 MG PO BID, (Reported) Pantoprazole Sodium (Pantoprazole Sodium) 40 Mg Tablet.dr, 40 MG PO DAILY, (Reported) Prednisone (Prednisone) 10 Mg Tab.ds.pk, 10 MG PO TAPER, (Reported) SECOND DAY TODAY (07/14/2018) Salmeterol/Fluticasone (Advair 250-50 Diskus) 14 Puff/Inhaler Aerp, 1 PUFF INH BID, (Reported) Sertraline Hcl (Zoloft) 100 Mg Tab, 200 MG PO DAILY, (Reported) Tiotropium [place] (Spiriva) 18 Mcg Cap.w.dev, 1 CAP INH DAILY, (Reported) Scheduled PRN Albuterol Sulf (Albuterol Sulfate) 2.5 Mg/3 Ml Vial.neb, 1 VIAL NEB Q4HP PRN for wheezing, (Reported) Albuterol Sulfate (Proair Hfa) 108 Mcg/Act Aer, 2 PUFFS INH Q4HP PRN for SHORTNESS OF BREATH, (Reported) Ibuprofen (Motrin Ib) 200 Mg Tab, 800 MG PO PRN PRN for PAIN OR FEVER, (Reported) Ipratropium/Albuterol Sulfate (Iprat-Albut 0.5-3(2.5) mg/3 ml) 3 Ml Ampul.neb, 1 INHALATION IN Q4H PRN for SOB/WHEEZING, (Reported) Oxycodone HCl/Acetaminophen (Oxycodone-Acetaminophen 10-325) 1 Each Tablet, 1 TAB PO QID PRN for PAIN, (Reported) Allergies Coded Allergies: No Known Allergies (Verified , 09/30/02) Past Medical History Medical History As noted in HPI. Social History * Smoker: former Smoker (Smoked 2-3 PPD for 20+ years, quit 5 months ago) Alcohol: Denies Drugs: denies Review of Systems Other systems 10 point review of systems negative unless otherwise specified in HPI. Physical Examination General Exam: Positive: Alert, Cooperative, Mild Distress (2/2 lethargy, weakness) ENT Exam: Positive: Atraumatic, Mucous membr. moist/pink Neck Exam: Negative: JVD Chest Exam: Positive: Diminished; Negative: Rales Heart Exam: Positive: Rate Normal, Normal S1, Normal S2 Abdomen Exam: Positive: Soft; Negative: Tenderness Extremity Exam: Negative: Tenderness, Swelling Psych Exam: Positive: Oriented x 3 Vital Signs Vital Signs Date Time Temp Pulse Resp B/P (MAP) Pulse Ox O2 Delivery O2 Flow Rate FiO2 07/14/18 21:40 90 20 129/78 (95) 92 Nasal Cannula 2.0 07/14/18 16:10 97.9 Laboratory Data Labs 24H Laboratory Tests 2 07/14/18 16:46: Blood Gas Bicarbonate Standard 24.5, Arterial Blood pH 7.421, Arterial Blood Partial Pressure CO2 38.4, Arterial Blood Partial Pressure O2 65.0L, Arterial Blood Total CO2 25.6, Arterial Blood HCO3 24.4, Arterial Blood Base Excess 0.2, Arterial Blood Oxygen Saturation 93.1L 07/14/18 16:52: Immature Granulocyte % (Auto) 0.6, White Blood Count 6.3, Red Blood Count 4.70, Hemoglobin 14.4, Hematocrit 40.9L, Mean Corpuscular Volume 87.0, Mean Corpuscular Hemoglobin 30.6, Mean Corpuscular Hemoglobin Concent 35.2, Red Cell Distribution Width 12.0, Platelet Count 183, Neutrophils (%) (Auto) 92.8H, Lymphocytes (%) (Auto) 5.3L, Monocytes (%) (Auto) 1.1, Eosinophils (%) (Auto) 0.0, Basophils (%) (Auto) 0.2, Neutrophils # (Auto) 5.8, Lymphocytes # (Auto) 0.3L, Monocytes # (Auto) 0.1, Eosinophils # (Auto) 0.0, Basophils # (Auto) 0.0, Nucleated Red Blood Cells % (auto) 0.0, Anion Gap 5L, Glomerular Filtration Rate > 60.0, Lactic Acid Level 1.8, Blood Urea Nitrogen 14, Creatinine 0.79, Sodium Level 138, Potassium Level 4.2, Chloride Level 105, Carbon Dioxide Level 28, Calcium Level 8.3L, Total Creatine Kinase 105, Creatine Kinase MB 2.0, Creatine Kinase MB Relative Index 1.90, Troponin I < 0.02, DI-Pbs-H-Type Natriuretic Peptide 55, Thyroid Stimulating Hormone (TSH) 0.072L, Free Thyroxine 1.10 CBC/BMP Laboratory Tests 07/14/18 16:52 Red Blood Count 4.70, Mean Corpuscular Volume 87.0, Mean Corpuscular Hemoglobin 30.6, Mean Corpuscular Hemoglobin Concent 35.2, Red Cell Distribution Width 12.0, Neutrophils (%) (Auto) 92.8 H, Lymphocytes (%) (Auto) 5.3 L, Monocytes (%) (Auto) 1.1, Eosinophils (%) (Auto) 0.0, Basophils (%) (Auto) 0.2, Neutrophils # (Auto) 5.8, Lymphocytes # (Auto) 0.3 L, Monocytes # (Auto) 0.1, Eosinophils # (Auto) 0.0, Basophils # (Auto) 0.0, Calcium Level 8.3 L, Total Creatine Kinase 105 Microbiology Microbiology 07/14/18 Blood Culture, Received Pending 07/14/18 Blood Culture, Received Pending 07/14/18 Respiratory Virus Panel (PCR) ([facility]) - Final, Complete Parainfluenza 3 (Piv3) Plan / VTE VTE Prophylaxis Ordered?: Yes Plan Plan COPD Exacerbation 2/2 Parainfluenza Admit to Med/Surg IV Solumedrol, Serial Nebs, and Inhaler therapy as ordered We will downtitrate supplemental oxygen as tolerated We will cont to monitor respiratory status PT ordered for functional optimization 1.7 cm Left Perihilar Nodule Density noted on CXR on admission Interestingly, this questionable nodule was not noted on Low Dose Chest CT Scan from April 2018, and from CXR on 07/11/18 We will order a follow up CT Chest I discussed the aforementioned findings with the patient, and answered all questions to his satisfaction. The patient follows with Dr. Harrison of pulmonary as an outpatient--we can consider further consultation pending the results of a follow-up CT chest. Chronic Back Pain Cont home med We will keep a close eye on the patient's respiratory status as he is on chronic opiate therapy However his respirations are not labored and his ABG did not reveal any CO2 retention Depression Cont Sertraline GERD Cont PPI DVT Prophylaxis Lovenox SC KAREN SMITH MD Jul 14, 2018 22:28
[2018-07-15] MEDS: methylPREDNISolone INJ 125 MG/2 ML VIAL (J2930) IV SCH ×3 (00:34→17:18)
[2018-07-15] MEDS: IPRATROPIUM 0.5MG/ALBUTEROL 2.5MG INH SOL UD 3ML (DUONEB)(J7620) NEB SCH ×7 (02:01→23:58)
[2018-07-15 06:00] VITALS: BP 142/86
[2018-07-15] MEDS: ADVAIR HFA 115/21MCG INHALER INH SCH ×2 (07:57→19:55)
[2018-07-15] MEDS: SERTRALINE 100 MG TAB PO SCH (09:12)
[2018-07-15] MEDS: PANTOPRAZOLE 40MG TAB (PROTONIX) PO SCH (09:12)
--- NOTE | 2018-07-15 09:19 | REP ---
Portable chest, 06:39 p.m., single AP view, the patient is upright: Comparisons are 05/07/2015, 02/13/2017 and 07/11/2018. There is diffuse bilateral mild interstitial coarsening that has slightly progressed from 05/07/2015 and 07/25/2016, compatible with chronic interstitial lung disease. There are no focal infiltrates. No pleural effusions. Cardiac size is upper normal, unchanged. The iker, mediastinum and skeletal structures are unremarkable. There is a 17 ml left perihilar nodular density as an interval change. Chest CT is recommended for follow up of this finding. Impression: Progressive mild diffuse bilateral interstitial coarsening compatible with chronic interstitial lung disease. No acute infiltrates or effusions. New 17 ml left perihilar nodular density. CT is recommended for follow up of this finding. Electronically Signed by Marcos Gaitan MD 07/14/2018 04:51 P
[2018-07-15 14:00] VITALS: BP 145/80
--- NOTE | 2018-07-15 20:44 | IPNPDOC ---
Date Seen The patient was seen on 07/15/18. Progress Note SUBJECTIVE: Pt was seen and examined. Chart has been reviewed. He denies any fevers overnig ht. Decreased nonproductive cough. no chills. c/o generalized weakness and RODRIGUEZ. still with extensive wheezing. OBJECTIVE: Physical Examination VITALS: PLS SEE BELOW General Exam: Positive: Alert, Cooperative, Mild Distress (2/2 lethargy, weakness) ENT Exam: Positive: Atraumatic, Mucous membr. moist/pink Neck Exam: Negative: JVD Chest Exam: Positive: Diminished; Negative: Rales Heart Exam: Positive: Rate Normal, Normal S1, Normal S2 Abdomen Exam: Positive: Soft; Negative: Tenderness Extremity Exam: Negative: Tenderness, Swelling Psych Exam: Positive: Oriented x 3 LABORATORY DATA, IMAGING STUDIES, MICROBIOLOGY: PLS SEE BELOW ASSESSMENT AND PLAN: \63-year-old male with past medical history of depression, chronic back pain, and COPD presents to the ER with a chief complaint of worsening cough productive of yellowish/brown sputum over the last several days. The patient states in addition that he has also been having worsening shortness of breath and exertional dyspnea during this time. He reports that he tried taking his inhaler therapy at home but denied any improvement. He also notes subjective fevers, chills, and a runny nose. He denies any sick contacts, recent travel, chest pain, palpitations, abdominal pain, orthopnea, PND, lower extremity swelling, or any nausea/vomiting/diarrhea. In the ER, the patient was noted to be hypoxic and requiring 2 L of oxygen. He was found to be positive for parainfluenza. The patient will be admitted under the hospitalist service for further evaluation and management. PARAINFLUENZA viral UPPER RESPIRATORY INFECTION supportive care with nebs, supplemental oxygen if o2sat<88% COPD Exacerbation 2/2 Parainfluenza Admit to Med/Surg IV Solumedrol, Serial Nebs, and Inhaler therapy as ordered We will downtitrate supplemental oxygen as tolerated We will cont to monitor respiratory status PT ordered for functional optimization 1.7 cm Left Perihilar Nodule Density noted on CXR on admission Interestingly, this questionable nodule was not noted on Low Dose Chest CT Scan from April 2018, and from CXR on 07/11/18 We will order a follow up CT Chest I discussed the aforementioned findings with the patient, and answered all q uestions to his satisfaction. The patient follows with Dr. Harrison of pulmonary as an outpatient--we can consider further consultation pending the results of a follow-up CT chest. Chronic Back Pain Cont home med We will keep a close eye on the patient's respiratory status as he is on chronic opiate therapy However his respirations are not labored and his ABG did not reveal any CO2 retention Depression Cont Sertraline GERD Cont PPI DVT Prophylaxis Lovenox SC VS, I&O, 24H, Fishbone Vital Signs/I&O Vital Signs Date Time Temp Pulse Resp B/P (MAP) Pulse Ox O2 Delivery O2 Flow Rate FiO2 07/15/18 06:00 97.4 91 18 142/86 (104) 94 2.0 07/14/18 21:40 Nasal Cannula I&O- Last 24 Hours up to 6 AM 07/15/18 06:00 Intake Total 550 ml Output Total 0 ml Balance 550 ml Laboratory Data 24H LABS Laboratory Tests 2 07/14/18 16:46: Blood Gas Bicarbonate Standard 24.5, Arterial Blood pH 7.421, Arterial Blood Partial Pressure CO2 38.4, Arterial Blood Partial Pressure O2 65.0L, Arterial Blood Total CO2 25.6, Arterial Blood HCO3 24.4, Arterial Blood Base Excess 0.2, Arterial Blood Oxygen Saturation 93.1L 07/14/18 16:52: Immature Granulocyte % (Auto) 0.6, White Blood Count 6.3, Red Blood Count 4.70, Hemoglobin 14.4, Hematocrit 40.9L, Mean Corpuscular Volume 87.0, Mean Corpuscular Hemoglobin 30.6, Mean Corpuscular Hemoglobin Concent 35.2, Red Cell Distribution Width 12.0, Platelet Count 183, Neutrophils (%) (Auto) 92.8H, Lymphocytes (%) (Auto) 5.3L, Monocytes (%) (Auto) 1.1, Eosinophils (%) (Auto) 0.0, Basophils (%) (Auto) 0.2, Neutrophils # (Auto) 5.8, Lymphocytes # (Auto) 0.3L, Monocytes # (Auto) 0.1, Eosinophils # (Auto) 0.0, Basophils # (Auto) 0.0, Nucleated Red Blood Cells % (auto) 0.0, Anion Gap 5L, Glomerular Filtration Rate > 60.0, Lactic Acid Level 1.8, Blood Urea Nitrogen 14, Creatinine 0.79, Sodium Level 138, Potassium Level 4.2, Chloride Level 105, Carbon Dioxide Level 28, Calcium Level 8.3L, Total Creatine Kinase 105, Creatine Kinase MB 2.0, Creatine Kinase MB Relative Index 1.90, Troponin I < 0.02, CD-Yfr-R-Type Natriuretic Peptide 55, Thyroid Stimulating Hormone (TSH) 0.072L, Free Thyroxine 1.10 CBC/BMP Laboratory Tests 07/14/18 16:52 Red Blood Count 4.70, Mean Corpuscular Volume 87.0, Mean Corpuscular Hemoglobin 30.6, Mean Corpuscular Hemoglobin Concent 35.2, Red Cell Distribution Width 12.0, Neutrophils (%) (Auto) 92.8 H, Lymphocytes (%) (Auto) 5.3 L, Monocytes (%) (Auto) 1.1, Eosinophils (%) (Auto) 0.0, Basophils (%) (Auto) 0.2, Neutrophils # (Auto) 5.8, Lymphocytes # (Auto) 0.3 L, Monocytes # (Auto) 0.1, Eosinophils # (Auto) 0.0, Basophils # (Auto) 0.0, Calcium Level 8.3 L, Total Creatine Kinase 105 Microbiology Microbiology 07/14/18 Blood Culture, Received Pending 07/14/18 Blood Culture, Received Pending 07/14/18 Respiratory Virus Panel (PCR) ([facility]) - Final, Complete Parainfluenza 3 (Piv3) RITA MARRUFO MD Jul 15, 2018 08:14
--- NOTE | 2018-07-15 20:50 | ECGEPIP ---
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
[2018-07-15 22:00] VITALS: BP 142/84
[2018-07-15] MEDS: ENOXAPARIN 40 MG/0.4 ML SYRINGE (J1650) SC SCH (22:46)
[2018-07-16] MEDS: methylPREDNISolone INJ 125 MG/2 ML VIAL (J2930) IV SCH ×3 (01:53→17:44)
[2018-07-16] MEDS: IPRATROPIUM 0.5MG/ALBUTEROL 2.5MG INH SOL UD 3ML (DUONEB)(J7620) NEB SCH ×5 (04:03→19:49)
[2018-07-16 06:00] VITALS: BP 132/82
[2018-07-16] MEDS: ADVAIR HFA 115/21MCG INHALER INH SCH ×2 (09:00→19:50)
[2018-07-16] MEDS: PANTOPRAZOLE 40MG TAB (PROTONIX) PO SCH (09:57)
[2018-07-16] MEDS: SERTRALINE 100 MG TAB PO SCH (09:58)
[2018-07-16] MEDS ORDERED: DOXYCYCLINE HYCLATE 100 MG TAB PO ONE (12:30)
[2018-07-16] MEDS ORDERED: SODIUM CHLORIDE NASAL 0.65% SPRAY BTL (OCEAN) PRN (12:30)
[2018-07-16] MEDS ORDERED: CETIRIZINE (ZyrTEC) 10 MG TAB PO ONE (12:30)
--- NOTE | 2018-07-16 12:30 | IPNPDOC ---
Date Seen The patient was seen on 07/16/18. Progress Note SUBJECTIVE: C/O RODRIGUEZ when he went from bed to bathroom last night and hypoxia. Still requiring supplemental oxygen. some RODRIGUEZ. will recheck pulse on on room air with ambulation. Pt was seen and examined. Chart has been reviewed. He denies any fevers overnight. Decreased nonproductive cough. no chills. c/o generalized weakness and RODRIGUEZ. still with extensive wheezing.also c/o nasal congestion OBJECTIVE: Physical Examination VITALS: PLS SEE BELOW General Exam: Positive: Alert, Cooperative, Mild Distress (2/2 lethargy, weakness) ENT Exam: Positive: Atraumatic, Mucous membr. moist/pink Neck Exam: Negative: JVD Chest Exam: Positive: Diminished; faint wheezing and rhonchi. Heart Exam: Positive: Rate Normal, Normal S1, Normal S2 Abdomen Exam: Positive: Soft; Negative: Tenderness Extremity Exam: Negative: Tenderness, Swelling Psych Exam: Positive: Oriented x 3 LABORATORY DATA, IMAGING STUDIES, MICROBIOLOGY: PLS SEE BELOW ASSESSMENT AND PLAN: \63-year-old male with past medical history of depression, chronic back pain, and COPD presents to the ER with a chief complaint of worsening cough productive of yellowish/brown sputum over the last several days. The patient states in addition that he has also been having worsening shortness of breath and exertional dyspnea during this time. He reports that he tried taking his inhaler therapy at home but denied any improvement. He also notes subjective fevers, chills, and a runny nose. He denies any sick contacts, recent travel, chest pain, palpitations, abdominal pain, orthopnea, PND, lower extremity swelling, or any nausea/vomiting/diarrhea. In the ER, the patient was noted to be hypoxic and requiring 2 L of oxygen. He was found to be positive for parainfluenza. The patient will be admitted under the hospitalist service for further evaluation and management. PARAINFLUENZA viral UPPER RESPIRATORY INFECTION supportive care with nebs, supplemental oxygen if o2sat<88% COPD Exacerbation 2/2 Parainfluenza Admit to Med/Surg IV Solumedrol, Serial Nebs, and Inhaler therapy as ordered We will downtitrate supplemental oxygen as tolerated We will cont to monitor respiratory status PT ordered for functional optimization 1.7 cm Left Perihilar Nodule Density noted on CXR on admission Interestingly, this questionable nodule was not noted on Low Dose Chest CT Scan from April 2018, and from CXR on 07/11/18 We will order a follow up CT Chest I discussed the aforementioned findings with the patient, and answered all questions to his satisfaction. The patient follows with Dr. Harrison of pulmonary as an outpatient--we can consider further consultation pending the results of a follow-up CT chest. Chronic Back Pain Cont home med We will keep a close eye on the patient's respiratory status as he is on chronic opiate therapy However his respirations are not labored and his ABG did not reveal any CO2 retention Depression Cont Sertraline GERD Cont PPI DVT Prophylaxis Lovenox SC VS, I&O, 24H, Fishbone Vital Signs/I&O Vital Signs Date Time Temp Pulse Resp B/P (MAP) Pulse Ox O2 Delivery O2 Flow Rate FiO2 07/16/18 06:00 97.5 104 18 132/82 (99) 93 2.0 07/14/18 21:40 Nasal Cannula I&O- Last 24 Hours up to 6 AM 07/16/18 06:00 Intake Total 2200 ml Balance 2200 ml Laboratory Data Microbiology Microbiology 07/14/18 Blood Culture - Preliminary, Resulted No growth after 24 hours . All specim... 07/14/18 Blood Culture - Preliminary, Resulted No growth after 24 hours . All specim... 07/14/18 Respiratory Virus Panel (PCR) ([facility]) - Final, Complete Parainfluenza 3 (Piv3) RITA MARRUFO MD Jul 16, 2018 11:04
[2018-07-16 14:00] VITALS: BP 171/79
[2018-07-16] MEDS: FLUTICASONE PROP 0.05% NASAL SPRAY 16 GM (FLONASE) NARES SCH (14:28)
[2018-07-16 16:00] VITALS: BP 150/80
[2018-07-16] MEDS: SODIUM CHLORIDE NASAL 0.65% SPRAY BTL (OCEAN) SCH ×2 (16:00→21:38)
[2018-07-16] MEDS: EXCEDRIN MIGRAINE TABLET PO PRN ×2 (19:00→23:01)
[2018-07-16] MEDS: DOXYCYCLINE HYCLATE 100 MG TAB PO SCH (21:35)
[2018-07-16] MEDS: ENOXAPARIN 40 MG/0.4 ML SYRINGE (J1650) SC SCH (21:35)
[2018-07-16 22:15] VITALS: BP 158/82
[2018-07-17] MEDS: methylPREDNISolone INJ 125 MG/2 ML VIAL (J2930) IV SCH ×3 (00:58→18:40)
[2018-07-17] MEDS: IPRATROPIUM 0.5MG/ALBUTEROL 2.5MG INH SOL UD 3ML (DUONEB)(J7620) NEB SCH ×6 (01:45→20:34)
[2018-07-17 04:00] VITALS: BP 156/92
[2018-07-17] MEDS: ADVAIR HFA 115/21MCG INHALER INH SCH ×2 (08:14→20:35)
[2018-07-17 08:33] LABS: BASO % 0.2 % (0.0-1.0); HEMATOCRIT 39.7 % (42.0-52.0); HEMOGLOBIN 13.7 g/dl (13.5-17.5); LYMPH # 0.5 10^3/uL (1.5-4.5); LYMPH % 4.4 % (24.0-44.0); MEAN CORPUSCULAR HEMOGLOBIN 30.5 pg (27.0-33.0); MEAN CORPUSCULAR HGB CONC 34.5 g/dl (32.0-36.5); MEAN CORPUSCULAR VOLUME 88.4 fl (80.0-96.0); MONO # 0.3 10^3/uL (0.0-0.8); MONO % 2.8 % (0.0-5.0); NEUTROPHILS # 9.7 10^3/uL (1.8-7.7); NEUTROPHILS % 91.6 % (36.0-66.0); PLATELET COUNT, AUTOMATED 206 10^3/uL (150-450); RED BLOOD COUNT 4.49 10^6/uL (4.30-6.10); WHITE BLOOD COUNT 10.6 10^3/uL (4.0-10.0)
[2018-07-17 08:54] LABS: BLOOD UREA NITROGEN 20 MG/DL (7-18); CALCIUM LEVEL 8.6 MG/DL (8.8-10.2); CARBON DIOXIDE LEVEL 29 MEQ/L (21-32); CHLORIDE LEVEL 103 MEQ/L (98-107); CREATININE FOR GFR 0.76 MG/DL (0.70-1.30); GLOMERULAR FILTRATION RATE > 60.0 (>49); GLUCOSE, FASTING 165 MG/DL (70-100); MAGNESIUM LEVEL 2.2 MG/DL (1.8-2.4); POTASSIUM SERUM 4.2 MEQ/L (3.5-5.1); SODIUM LEVEL 138 MEQ/L (136-145)
[2018-07-17] MEDS: PANTOPRAZOLE 40MG TAB (PROTONIX) PO SCH (09:53)
[2018-07-17] MEDS: DOXYCYCLINE HYCLATE 100 MG TAB PO SCH ×2 (09:53→20:02)
[2018-07-17] MEDS: CETIRIZINE (ZyrTEC) 10 MG TAB PO SCH (09:53)
[2018-07-17] MEDS: SERTRALINE 100 MG TAB PO SCH (09:53)
[2018-07-17] MEDS: FLUTICASONE PROP 0.05% NASAL SPRAY 16 GM (FLONASE) NARES SCH (09:54)
[2018-07-17] MEDS: SODIUM CHLORIDE NASAL 0.65% SPRAY BTL (OCEAN) SCH ×3 (09:54→20:02)
[2018-07-17 14:00] VITALS: BP 136/86
[2018-07-17] MEDS: EXCEDRIN MIGRAINE TABLET PO PRN (18:40)
[2018-07-17 19:41] VITALS: BP 154/84
[2018-07-17] MEDS: ENOXAPARIN 40 MG/0.4 ML SYRINGE (J1650) SC SCH (20:02)
--- NOTE | 2018-07-17 20:14 | IPN ---
DATE: 07/17/2018 SUBJECTIVE: The patient is seen and examined in the room today. The patient is not sure whether his breathing is improving or not. He still requires oxygen support. Denies any fever or chills. Denies any productive cough. OBJECTIVE: VITAL SIGNS: Temperature 97.9, pulse 91, respirations 19, blood pressure 156/72, pulse oximetry is 94% with 2 liters nasal cannula. GENERAL: The patient is alert, awake, comfortable. HEENT: Normocephalic, atraumatic. Extraocular motors are grossly intact. CARDIOVASCULAR: Positive S1, S2. Regular. LUNGS: Decreased breath sounds. Positive wheezes. Very mild crackles. ABDOMEN: Soft, nontender, nondistended. Bowel sounds present. EXTREMITIES: No significant edema appreciated. LABORATORY DATA: WBC is 10.6, hemoglobin 13.7, hematocrit 39.7, platelet count is 206. Sodium is 138, potassium 4.2, chloride 103, carbon dioxide 29, BUN 20, creatinine 0.76, GFR is greater than 60, fasting glucose 165, calcium 8.6, magnesium 2.2. ASSESSMENT AND PLAN: 1. Parainfluenza infection. Continue conservative medical management. 2. Chronic obstructive pulmonary disease (COPD) exacerbation secondary to parainfluenza. The patient is on steroids and nebulizer treatments. Continue to titrate oxygen as tolerated. 3. 1.7 cm left parahilar nodular density. Recommend repeat outpatient CT followup. 4. Chronic back pain. Continue home medications. No adjustment needed at this moment. 5. Depression. Continue home medications. 6. Deep vein thrombosis (DVT) prophylaxis. The patient is on Lovenox.
[2018-07-18] MEDS: methylPREDNISolone INJ 125 MG/2 ML VIAL (J2930) IV SCH ×3 (00:31→17:20)
[2018-07-18] MEDS: IPRATROPIUM 0.5MG/ALBUTEROL 2.5MG INH SOL UD 3ML (DUONEB)(J7620) NEB SCH ×6 (00:45→21:14)
[2018-07-18 05:30] VITALS: BP 148/82
[2018-07-18 06:52] LABS: HEMOGLOBIN 13.7 g/dl (13.5-17.5); MEAN CORPUSCULAR HEMOGLOBIN 29.8 pg (27.0-33.0); MEAN CORPUSCULAR HGB CONC 34.3 g/dl (32.0-36.5); MEAN CORPUSCULAR VOLUME 87.1 fl (80.0-96.0); PLATELET COUNT, AUTOMATED 199 10^3/uL (150-450); RED BLOOD COUNT 4.59 10^6/uL (4.30-6.10); WHITE BLOOD COUNT 10.9 10^3/uL (4.0-10.0)
[2018-07-18 07:11] LABS: BLOOD UREA NITROGEN 21 MG/DL (7-18); CALCIUM LEVEL 8.3 MG/DL (8.8-10.2); CARBON DIOXIDE LEVEL 28 MEQ/L (21-32); CHLORIDE LEVEL 103 MEQ/L (98-107); CREATININE FOR GFR 0.85 MG/DL (0.70-1.30); GLOMERULAR FILTRATION RATE > 60.0 (>49); GLUCOSE, FASTING 196 MG/DL (70-100); MAGNESIUM LEVEL 2.2 MG/DL (1.8-2.4); SODIUM LEVEL 137 MEQ/L (136-145)
[2018-07-18] MEDS: ADVAIR HFA 115/21MCG INHALER INH SCH ×2 (08:15→21:00)
[2018-07-18] MEDS: FLUTICASONE PROP 0.05% NASAL SPRAY 16 GM (FLONASE) NARES SCH (08:17)
[2018-07-18] MEDS: DOXYCYCLINE HYCLATE 100 MG TAB PO SCH ×2 (08:17→20:40)
[2018-07-18] MEDS: CETIRIZINE (ZyrTEC) 10 MG TAB PO SCH (08:17)
[2018-07-18] MEDS: SERTRALINE 100 MG TAB PO SCH (08:17)
[2018-07-18] MEDS: PANTOPRAZOLE 40MG TAB (PROTONIX) PO SCH (08:17)
[2018-07-18] MEDS: SODIUM CHLORIDE NASAL 0.65% SPRAY BTL (OCEAN) SCH ×3 (08:18→20:41)
[2018-07-18] MEDS: EXCEDRIN MIGRAINE TABLET PO PRN ×2 (10:11→17:21)
[2018-07-18 14:00] VITALS: BP 151/83
--- NOTE | 2018-07-18 19:04 | IPNPDOC ---
Text Note Date of Service The patient was seen on 07/18/18. NOTE SUBJECTIVE: The patient is seen and examined in the room today. Patient think his breathing may be improving in the last 24hours but he is not really sure. Denies any fever or chills. Denies any productive cough. OBJECTIVE: VITAL SIGNS: Listed below. GENERAL: The patient is alert, awake, comfortable. HEENT: Normocephalic, atraumatic. Extraocular motors are grossly intact. CARDIOVASCULAR: Positive S1, S2. Regular. LUNGS: Decreased breath sounds. Mild wheezes. No crackles. ABDOMEN: Soft, nontender, nondistended. Bowel sounds present. EXTREMITIES: No significant edema appreciated. LABORATORY DATA: Listed below. ASSESSMENT AND PLAN: #. Parainfluenza infection. Continue conservative medical management. #. Chronic obstructive pulmonary disease (COPD) exacerbation - secondary to parainfluenza. The patient is on steroids and nebulizer treatments. Continue to titrate oxygen as tolerated. #. 1.7 cm left parahilar nodular density. - Recommend repeat outpatient CT followup. #. Chronic back pain. - Continue home medications. No adjustment needed at this moment. #. Depression. Continue home medications. # DVT prophylaxis. On Lovenox. VS,Fishbone, I+O VS, Fishbone, I+O Laboratory Tests 07/18/18 06:27 Red Blood Count 4.59, Mean Corpuscular Volume 87.1, Mean Corpuscular Hemoglobin 29.8, Mean Corpuscular Hemoglobin Concent 34.3, Red Cell Distribution Width 12.2, Calcium Level 8.3 L Vital Signs Date Time Temp Pulse Resp B/P (MAP) Pulse Ox O2 Delivery O2 Flow Rate FiO2 07/18/18 14:00 98.0 100 18 151/83 (105) 91 2.0 07/17/18 01:45 Nasal Cannula I&O- Last 24 Hours up to 6 AM 07/18/18 06:00 Intake Total 1140 ml Output Total 0 ml Balance 1140 ml RIVKA MCCORMICK DO Jul 18, 2018 19:04
[2018-07-18 20:00] VITALS: BP 148/84
[2018-07-18] MEDS: ENOXAPARIN 40 MG/0.4 ML SYRINGE (J1650) SC SCH (20:40)
[2018-07-19] MEDS: IPRATROPIUM 0.5MG/ALBUTEROL 2.5MG INH SOL UD 3ML (DUONEB)(J7620) NEB SCH ×6 (00:55→19:58)
[2018-07-19] MEDS: EXCEDRIN MIGRAINE TABLET PO PRN ×2 (00:57→09:32)
[2018-07-19] MEDS: methylPREDNISolone INJ 125 MG/2 ML VIAL (J2930) IV SCH ×3 (00:57→16:43)
[2018-07-19 06:00] VITALS: BP 142/80
[2018-07-19 06:58] LABS: HEMATOCRIT 40.4 % (42.0-52.0); HEMOGLOBIN 13.8 g/dl (13.5-17.5); MEAN CORPUSCULAR HEMOGLOBIN 29.9 pg (27.0-33.0); MEAN CORPUSCULAR HGB CONC 34.2 g/dl (32.0-36.5); MEAN CORPUSCULAR VOLUME 87.4 fl (80.0-96.0); PLATELET COUNT, AUTOMATED 201 10^3/uL (150-450); RED BLOOD COUNT 4.62 10^6/uL (4.30-6.10); WHITE BLOOD COUNT 11.9 10^3/uL (4.0-10.0)
[2018-07-19 07:20] LABS: BLOOD UREA NITROGEN 22 MG/DL (7-18); CALCIUM LEVEL 8.2 MG/DL (8.8-10.2); CARBON DIOXIDE LEVEL 29 MEQ/L (21-32); CHLORIDE LEVEL 102 MEQ/L (98-107); CREATININE FOR GFR 0.88 MG/DL (0.70-1.30); GLOMERULAR FILTRATION RATE > 60.0 (>49); GLUCOSE, FASTING 168 MG/DL (70-100); MAGNESIUM LEVEL 2.3 MG/DL (1.8-2.4); POTASSIUM SERUM 4.4 MEQ/L (3.5-5.1); SODIUM LEVEL 137 MEQ/L (136-145)
[2018-07-19] MEDS: ADVAIR HFA 115/21MCG INHALER INH SCH ×2 (07:57→19:58)
[2018-07-19] MEDS: SERTRALINE 100 MG TAB PO SCH (09:08)
[2018-07-19] MEDS: PANTOPRAZOLE 40MG TAB (PROTONIX) PO SCH (09:08)
[2018-07-19] MEDS: CETIRIZINE (ZyrTEC) 10 MG TAB PO SCH (09:08)
[2018-07-19] MEDS: DOXYCYCLINE HYCLATE 100 MG TAB PO SCH ×2 (09:08→21:07)
[2018-07-19] MEDS: SODIUM CHLORIDE NASAL 0.65% SPRAY BTL (OCEAN) SCH ×3 (09:09→21:08)
[2018-07-19] MEDS: FLUTICASONE PROP 0.05% NASAL SPRAY 16 GM (FLONASE) NARES SCH (09:09)
[2018-07-19] MEDS: MOM 30ML SUSPENSION UDC PO PRN (09:15)
[2018-07-19 12:00] VITALS: BP 200/110
[2018-07-19 12:35] VITALS: BP 172/96
[2018-07-19] MEDS: amLODIPine 10 MG TAB PO SCH (12:54)
[2018-07-19 14:24] VITALS: BP 150/80
--- NOTE | 2018-07-19 18:28 | IPNPDOC ---
Text Note Date of Service The patient was seen on 07/19/18. NOTE SUBJECTIVE: The patient is seen and examined in the room today. Patient really feels there is improvement of his breathing. Denies any fever or chills. Denies any productive cough. OBJECTIVE: VITAL SIGNS: Listed below. GENERAL: The patient is alert, awake, comfortable. HEENT: Normocephalic, atraumatic. Extraocular motors are grossly intact. CARDIOVASCULAR: Positive S1, S2. Regular. LUNGS: Decreased breath sounds. No wheeze. No crackles. ABDOMEN: Soft, nontender, nondistended. Bowel sounds present. EXTREMITIES: No significant edema appreciated. LABORATORY DATA: Listed below. ASSESSMENT AND PLAN: #. Parainfluenza infection. - Continue conservative medical management. #. Chronic obstructive pulmonary disease (COPD) exacerbation - secondary to parainfluenza. The patient is on steroids and nebulizer treatments. Continue to titrate oxygen as tolerated. #. 1.7 cm left parahilar nodular density. - Recommend repeat outpatient CT followup. #. Chronic back pain. - Continue home medications. No adjustment needed at this moment. #. Depression. Continue home medications. # DVT prophylaxis. On Lovenox. VS,Fishbone, I+O VS, Fishbone, I+O Laboratory Tests 07/19/18 06:33 Red Blood Count 4.62, Mean Corpuscular Volume 87.4, Mean Corpuscular Hemoglobin 29.9, Mean Corpuscular Hemoglobin Concent 34.2, Red Cell Distribution Width 12.1, Calcium Level 8.2 L Vital Signs Date Time Temp Pulse Resp B/P (MAP) Pulse Ox O2 Delivery O2 Flow Rate FiO2 07/19/18 14:24 150/80 (103) 07/19/18 12:54 88 07/19/18 12:00 98.3 22 91 2.0 07/17/18 01:45 Nasal Cannula I&O- Last 24 Hours up to 6 AM 07/19/18 06:00 Intake Total 1440 ml Output Total 0 ml Balance 1440 ml RIVKA MCCORMICK DO Jul 19, 2018 18:28
[2018-07-19 20:00] VITALS: BP 177/80
[2018-07-19] MEDS: ENOXAPARIN 40 MG/0.4 ML SYRINGE (J1650) SC SCH (21:08)
[2018-07-20] MEDS: IPRATROPIUM 0.5MG/ALBUTEROL 2.5MG INH SOL UD 3ML (DUONEB)(J7620) NEB SCH ×7 (00:19→23:37)
[2018-07-20] MEDS: EXCEDRIN MIGRAINE TABLET PO PRN (01:08)
[2018-07-20] MEDS: methylPREDNISolone INJ 125 MG/2 ML VIAL (J2930) IV SCH ×2 (01:08→09:00)
[2018-07-20 07:10] LABS: HEMATOCRIT 39.4 % (42.0-52.0); HEMOGLOBIN 13.6 g/dl (13.5-17.5); MEAN CORPUSCULAR HEMOGLOBIN 30.2 pg (27.0-33.0); MEAN CORPUSCULAR HGB CONC 34.5 g/dl (32.0-36.5); MEAN CORPUSCULAR VOLUME 87.6 fl (80.0-96.0); PLATELET COUNT, AUTOMATED 184 10^3/uL (150-450); WHITE BLOOD COUNT 11.9 10^3/uL (4.0-10.0)
[2018-07-20 07:27] LABS: BLOOD UREA NITROGEN 23 MG/DL (7-18); CALCIUM LEVEL 8.4 MG/DL (8.8-10.2); CARBON DIOXIDE LEVEL 28 MEQ/L (21-32); CHLORIDE LEVEL 102 MEQ/L (98-107); CREATININE FOR GFR 0.91 MG/DL (0.70-1.30); GLOMERULAR FILTRATION RATE > 60.0 (>49); GLUCOSE, FASTING 207 MG/DL (70-100); MAGNESIUM LEVEL 2.5 MG/DL (1.8-2.4); POTASSIUM SERUM 4.3 MEQ/L (3.5-5.1); SODIUM LEVEL 137 MEQ/L (136-145)
[2018-07-20] MEDS: ADVAIR HFA 115/21MCG INHALER INH SCH ×2 (09:00→19:41)
[2018-07-20] MEDS: predniSONE 20 MG TAB PO SCH ×2 (10:08→20:28)
[2018-07-20] MEDS: SERTRALINE 100 MG TAB PO SCH (10:08)
[2018-07-20] MEDS: CETIRIZINE (ZyrTEC) 10 MG TAB PO SCH (10:08)
[2018-07-20] MEDS: amLODIPine 10 MG TAB PO SCH (10:09)
[2018-07-20] MEDS: DOXYCYCLINE HYCLATE 100 MG TAB PO SCH ×2 (10:09→20:29)
[2018-07-20] MEDS: PANTOPRAZOLE 40MG TAB (PROTONIX) PO SCH (10:09)
[2018-07-20] MEDS: FLUTICASONE PROP 0.05% NASAL SPRAY 16 GM (FLONASE) NARES SCH (10:10)
[2018-07-20] MEDS: SODIUM CHLORIDE NASAL 0.65% SPRAY BTL (OCEAN) SCH ×3 (10:10→20:31)
[2018-07-20 14:00] VITALS: BP 135/81
--- NOTE | 2018-07-20 18:13 | IPNPDOC ---
Text Note Date of Service The patient was seen on 07/20/18. NOTE SUBJECTIVE: The patient is seen and examined in the room today. He feels IV steroid is giving him headache. He feels his breathing may be improving. Denies any fever or chills. Denies any productive cough. OBJECTIVE: VITAL SIGNS: Listed below. GENERAL: The patient is alert, awake, comfortable. HEENT: Normocephalic, atraumatic. Extraocular motors are grossly intact. CARDIOVASCULAR: Positive S1, S2. Regular. LUNGS: Decreased breath sounds. Mild wheeze. No crackles. ABDOMEN: Soft, nontender, nondistended. Bowel sounds present. EXTREMITIES: No significant edema appreciated. LABORATORY DATA: Listed below. ASSESSMENT AND PLAN: #. Parainfluenza infection. - Continue conservative medical management. #. Chronic obstructive pulmonary disease (COPD) exacerbation - secondary to parainfluenza. The patient is on steroids and nebulizer treatments. Switching IV steroid to PO steroid. Continue to titrate oxygen as tolerated. # Hypertension - On Norvasc. #. 1.7 cm left parahilar nodular density. - Recommend repeat outpatient CT followup. #. Chronic back pain. - Continue home medications. No adjustment needed at this moment. #. Depression. Continue home medications. # DVT prophylaxis. On Lovenox. VS,Fishbone, I+O VS, Fishbone, I+O Laboratory Tests 07/20/18 06:47 Red Blood Count 4.50, Mean Corpuscular Volume 87.6, Mean Corpuscular Hemoglobin 30.2, Mean Corpuscular Hemoglobin Concent 34.5, Red Cell Distribution Width 12.1, Calcium Level 8.4 L Vital Signs Date Time Temp Pulse Resp B/P (MAP) Pulse Ox O2 Delivery O2 Flow Rate FiO2 07/20/18 14:00 97.4 94 22 135/81 (99) 93 2.0 07/17/18 01:45 Nasal Cannula I&O- Last 24 Hours up to 6 AM 07/20/18 06:00 Intake Total 2410 ml Output Total 0 ml Balance 2410 ml RIVKA MCCORMICK DO Jul 20, 2018 18:13
[2018-07-20 20:00] VITALS: BP 135/84
[2018-07-20] MEDS: ENOXAPARIN 40 MG/0.4 ML SYRINGE (J1650) SC SCH (20:29)
[2018-07-21 06:00] VITALS: BP 132/82
[2018-07-21 07:42] LABS: HEMATOCRIT 41.4 % (42.0-52.0); HEMOGLOBIN 14.4 g/dl (13.5-17.5); MEAN CORPUSCULAR HEMOGLOBIN 30.4 pg (27.0-33.0); MEAN CORPUSCULAR HGB CONC 34.8 g/dl (32.0-36.5); MEAN CORPUSCULAR VOLUME 87.5 fl (80.0-96.0); PLATELET COUNT, AUTOMATED 185 10^3/uL (150-450); RED BLOOD COUNT 4.73 10^6/uL (4.30-6.10); WHITE BLOOD COUNT 13.4 10^3/uL (4.0-10.0)
[2018-07-21] MEDS: IPRATROPIUM 0.5MG/ALBUTEROL 2.5MG INH SOL UD 3ML (DUONEB)(J7620) NEB SCH ×5 (08:00→23:24)
[2018-07-21 08:08] LABS: BLOOD UREA NITROGEN 20 MG/DL (7-18); CARBON DIOXIDE LEVEL 28 MEQ/L (21-32); CHLORIDE LEVEL 102 MEQ/L (98-107); CREATININE FOR GFR 0.86 MG/DL (0.70-1.30); GLOMERULAR FILTRATION RATE > 60.0 (>49); GLUCOSE, FASTING 183 MG/DL (70-100); MAGNESIUM LEVEL 2.4 MG/DL (1.8-2.4); POTASSIUM SERUM 3.9 MEQ/L (3.5-5.1); SODIUM LEVEL 138 MEQ/L (136-145)
[2018-07-21] MEDS: amLODIPine 10 MG TAB PO SCH (08:26)
[2018-07-21] MEDS: predniSONE 20 MG TAB PO SCH ×2 (08:26→21:15)
[2018-07-21] MEDS: PANTOPRAZOLE 40MG TAB (PROTONIX) PO SCH (08:26)
[2018-07-21] MEDS: SERTRALINE 100 MG TAB PO SCH (08:26)
[2018-07-21] MEDS: CETIRIZINE (ZyrTEC) 10 MG TAB PO SCH (08:26)
[2018-07-21] MEDS: SODIUM CHLORIDE NASAL 0.65% SPRAY BTL (OCEAN) SCH ×3 (08:27→21:15)
[2018-07-21] MEDS: FLUTICASONE PROP 0.05% NASAL SPRAY 16 GM (FLONASE) NARES SCH (08:28)
[2018-07-21] MEDS: MOM 30ML SUSPENSION UDC PO PRN (08:30)
[2018-07-21] MEDS: ADVAIR HFA 115/21MCG INHALER INH SCH ×2 (08:58→21:00)
[2018-07-21 13:43] VITALS: BP 146/73
--- NOTE | 2018-07-21 17:12 | IPNPDOC ---
Text Note Date of Service The patient was seen on 07/21/18. NOTE SUBJECTIVE: The patient is seen and examined in the room today. He states no recurrence of headache. His blood pressure is improving. He also feels his breathing is improving. OBJECTIVE: VITAL SIGNS: Listed below. GENERAL: The patient is alert, awake, comfortable. HEENT: Normocephalic, atraumatic. Extraocular motors are grossly intact. CARDIOVASCULAR: Positive S1, S2. Regular. LUNGS: Decreased breath sounds. Mild wheeze. No crackles. ABDOMEN: Soft, nontender, nondistended. Bowel sounds present. EXTREMITIES: No significant edema appreciated. LABORATORY DATA: Listed below. ASSESSMENT AND PLAN: #. Chronic obstructive pulmonary disease (COPD) exacerbation - secondary to parainfluenza. - The patient is on PRN nebulizer treatments. On tapering PO steroid. Continue to titrate oxygen as tolerated. #. Parainfluenza infection. - Continue conservative medical management. # Hypertension - On Norvasc. #. 1.7 cm left parahilar nodular density. - Recommend repeat outpatient CT followup. #. Chronic back pain. - Continue home medications. No adjustment needed at this moment. #. Depression. Continue home medications. # DVT prophylaxis. On Lovenox. VS,Fishbone, I+O VS, Fishbone, I+O Laboratory Tests 07/21/18 07:31 Red Blood Count 4.73, Mean Corpuscular Volume 87.5, Mean Corpuscular Hemoglobin 30.4, Mean Corpuscular Hemoglobin Concent 34.8, Red Cell Distribution Width 12.0, Calcium Level 8.0 L Vital Signs Date Time Temp Pulse Resp B/P (MAP) Pulse Ox O2 Delivery O2 Flow Rate FiO2 07/21/18 13:43 97.3 72 18 146/73 (97) 93 07/21/18 06:00 2.0 07/20/18 23:37 Nasal Cannula I&O- Last 24 Hours up to 6 AM 07/21/18 06:00 Intake Total 900 ml Output Total 0 ml Balance 900 ml RIVKA MCCORMICK DO Jul 21, 2018 17:12
[2018-07-21 20:00] VITALS: BP 154/80
[2018-07-21] MEDS: ENOXAPARIN 40 MG/0.4 ML SYRINGE (J1650) SC SCH (21:15)
[2018-07-22] MEDS: IPRATROPIUM 0.5MG/ALBUTEROL 2.5MG INH SOL UD 3ML (DUONEB)(J7620) NEB SCH ×6 (04:08→22:55)
[2018-07-22 05:00] VITALS: BP 152/80
[2018-07-22 07:13] LABS: HEMATOCRIT 41.8 % (42.0-52.0); HEMOGLOBIN 14.6 g/dl (13.5-17.5); MEAN CORPUSCULAR HEMOGLOBIN 30.5 pg (27.0-33.0); MEAN CORPUSCULAR HGB CONC 34.9 g/dl (32.0-36.5); MEAN CORPUSCULAR VOLUME 87.4 fl (80.0-96.0); PLATELET COUNT, AUTOMATED 171 10^3/uL (150-450); RED BLOOD COUNT 4.78 10^6/uL (4.30-6.10); WHITE BLOOD COUNT 11.7 10^3/uL (4.0-10.0)
[2018-07-22] MEDS: ADVAIR HFA 115/21MCG INHALER INH SCH ×2 (07:19→20:17)
[2018-07-22 07:38] LABS: BLOOD UREA NITROGEN 17 MG/DL (7-18); CALCIUM LEVEL 7.7 MG/DL (8.8-10.2); CARBON DIOXIDE LEVEL 28 MEQ/L (21-32); CHLORIDE LEVEL 101 MEQ/L (98-107); CREATININE FOR GFR 0.91 MG/DL (0.70-1.30); GLOMERULAR FILTRATION RATE > 60.0 (>49); GLUCOSE, FASTING 201 MG/DL (70-100); MAGNESIUM LEVEL 2.3 MG/DL (1.8-2.4); POTASSIUM SERUM 4.5 MEQ/L (3.5-5.1); SODIUM LEVEL 136 MEQ/L (136-145)
[2018-07-22] MEDS: amLODIPine 10 MG TAB PO SCH (08:31)
[2018-07-22] MEDS: CETIRIZINE (ZyrTEC) 10 MG TAB PO SCH (08:31)
[2018-07-22] MEDS: predniSONE 20 MG TAB PO SCH (08:31)
[2018-07-22] MEDS: SERTRALINE 100 MG TAB PO SCH (08:31)
[2018-07-22] MEDS: PANTOPRAZOLE 40MG TAB (PROTONIX) PO SCH (08:31)
[2018-07-22] MEDS: SODIUM CHLORIDE NASAL 0.65% SPRAY BTL (OCEAN) SCH ×3 (08:32→21:00)
[2018-07-22] MEDS: FLUTICASONE PROP 0.05% NASAL SPRAY 16 GM (FLONASE) NARES SCH (08:32)
--- NOTE | 2018-07-22 12:35 | IPNPDOC ---
Text Note Date of Service The patient was seen on 07/22/18. NOTE SUBJECTIVE: The patient is seen and examined in the room today. No recurrence of headache. He states is breathing is improving and he can breath with oxygen support at rest. Denies acute complaint. OBJECTIVE: VITAL SIGNS: Listed below. GENERAL: The patient is alert, awake, comfortable. HEENT: Normocephalic, atraumatic. Extraocular motors are grossly intact. CARDIOVASCULAR: Positive S1, S2. Regular. LUNGS: Decreased breath sounds. Mild wheeze. No crackles. ABDOMEN: Soft, nontender, nondistended. Bowel sounds present. EXTREMITIES: No significant edema appreciated. LABORATORY DATA: Listed below. ASSESSMENT AND PLAN: #. Chronic obstructive pulmonary disease (COPD) exacerbation - secondary to parainfluenza. - The patient is on PRN nebulizer treatments. On tapering PO steroid. Continue to titrate oxygen as tolerated. - Anticipate discharge in 24-48 hours. #. Parainfluenza infection. - Continue conservative medical management. # Hypertension - On Norvasc. #. 1.7 cm left parahilar nodular density. - Recommend repeat outpatient CT followup. #. Chronic back pain. - Continue home medications. No adjustment needed at this moment. #. Depression. Continue home medications. # DVT prophylaxis. On Lovenox. VS,Fishbone, I+O VS, Fishbone, I+O Laboratory Tests 07/22/18 07:00 Red Blood Count 4.78, Mean Corpuscular Volume 87.4, Mean Corpuscular Hemoglobin 30.5, Mean Corpuscular Hemoglobin Concent 34.9, Red Cell Distribution Width 12.0, Calcium Level 7.7 L Vital Signs Date Time Temp Pulse Resp B/P (MAP) Pulse Ox O2 Delivery O2 Flow Rate FiO2 07/22/18 08:31 88 152/80 07/22/18 05:00 97.1 20 94 2.0 07/20/18 23:37 Nasal Cannula I&O- Last 24 Hours up to 6 AM 07/22/18 06:00 Intake Total 1340 ml Balance 1340 ml RIVKA MCCORMICK DO Jul 22, 2018 12:35
[2018-07-22 13:54] VITALS: BP 154/78
[2018-07-22] MEDS: predniSONE 10 MG TAB PO SCH (20:27)
[2018-07-22] MEDS: ENOXAPARIN 40 MG/0.4 ML SYRINGE (J1650) SC SCH (20:27)
[2018-07-22 22:00] VITALS: BP 143/78
[2018-07-23] MEDS: IPRATROPIUM 0.5MG/ALBUTEROL 2.5MG INH SOL UD 3ML (DUONEB)(J7620) NEB SCH ×2 (04:00→07:39)
[2018-07-23 06:00] VITALS: BP 115/63
[2018-07-23 06:43] LABS: HEMATOCRIT 40.8 % (42.0-52.0); HEMOGLOBIN 14.2 g/dl (13.5-17.5); MEAN CORPUSCULAR HEMOGLOBIN 30.7 pg (27.0-33.0); MEAN CORPUSCULAR HGB CONC 34.8 g/dl (32.0-36.5); MEAN CORPUSCULAR VOLUME 88.1 fl (80.0-96.0); PLATELET COUNT, AUTOMATED 158 10^3/uL (150-450); RED BLOOD COUNT 4.63 10^6/uL (4.30-6.10); WHITE BLOOD COUNT 12.9 10^3/uL (4.0-10.0)
[2018-07-23 07:06] LABS: BLOOD UREA NITROGEN 18 MG/DL (7-18); CALCIUM LEVEL 7.6 MG/DL (8.8-10.2); CARBON DIOXIDE LEVEL 29 MEQ/L (21-32); CHLORIDE LEVEL 102 MEQ/L (98-107); CREATININE FOR GFR 0.78 MG/DL (0.70-1.30); GLOMERULAR FILTRATION RATE > 60.0 (>49); GLUCOSE, FASTING 184 MG/DL (70-100); MAGNESIUM LEVEL 2.4 MG/DL (1.8-2.4); POTASSIUM SERUM 4.1 MEQ/L (3.5-5.1); SODIUM LEVEL 135 MEQ/L (136-145)
[2018-07-23] MEDS ORDERED: AMLO10TA5 PO (07:28)
[2018-07-23] MEDS ORDERED: PRED10TA2 PO (07:28)
[2018-07-23] MEDS: ADVAIR HFA 115/21MCG INHALER INH SCH (07:38)
[2018-07-23 08:49] VITALS: BP 115/63
[2018-07-23] MEDS: amLODIPine 10 MG TAB PO SCH (08:49)
[2018-07-23] MEDS: CETIRIZINE (ZyrTEC) 10 MG TAB PO SCH (08:49)
[2018-07-23] MEDS: predniSONE 10 MG TAB PO SCH (08:49)
[2018-07-23] MEDS: PANTOPRAZOLE 40MG TAB (PROTONIX) PO SCH (08:49)
[2018-07-23] MEDS: SERTRALINE 100 MG TAB PO SCH (08:49)
[2018-07-23] MEDS: FLUTICASONE PROP 0.05% NASAL SPRAY 16 GM (FLONASE) NARES SCH (08:50)
[2018-07-23] MEDS: SODIUM CHLORIDE NASAL 0.65% SPRAY BTL (OCEAN) SCH (08:50)
--- NOTE | 2018-07-23 19:18 | DSES ---
DATE OF ADMISSION: 07/14/2018 DATE OF DISCHARGE: 07/23/2018 PRIMARY CARE PROVIDER: Edy Reason DISCHARGE DIAGNOSES: Chronic obstructive pulmonary disease (COPD) exacerbation secondary to parainfluenza infection. Parainfluenza infection. Hypertension. A 1.7 cm left perihilar nodular density. Chronic back pain. Depression. HOSPITALIZATION COURSE: The patient is a 63-year-old male, presents to [facility] on 07/14/2018 with a complaint about worsening of breathing. Patient was diagnosed with parainfluenza infection. Patient admitted to the hospitalist service for COPD exacerbation. Patient started on IV steroids, continued on the breathing treatments. During admission, the patient was found to have a left lung nodule. With conservative medical management, patient's respiratory function started to improve very gradually. Later, the patient started having a headache and hypertension from the intravenous (IV) steroids, and the patient's steroid regimen adjusted to oral and dosage adjusted according to patient's clinical picture. Patient's activity tolerance started to improve, breathing started to improve, and patient's oxygen started tapering as tolerated. On 07/23/2018, patient's respiratory status and functional status has returned to his baseline, and the patient was determined stable for discharge with the recommendation to followup with primary care provider in 1 week. Patient should also followup with his hand shaker for the left perihilar nodular density. Recommend the patient to finish a steroid taper. Vital signs on the day of discharge: Temperature 96.7, pulse 77, respirations 18, blood pressure 115/63, pulse oximetry 94% in room air. LABORATORY DATA: WBC 12.9, hemoglobin 14.2, hematocrit 40.8, platelet count is 158. Sodium is 135, potassium 4.1, chloride 102, carbon dioxide 29, BUN 18, creatinine 0.78, GFR greater than 60, fasting glucose 184, calcium 7.6, magnesium 2.4. Microbiology: Blood cultures from 07/14/2018 showed no growth after 5 days times two sets. Respiratory panel on 07/14/2018 showed parainfluenza. IMAGING STUDIES: CT angiogram of the chest from 07/14/2018 showed slight interstitial prominence with minimal fibro-atelectatic change in the right middle lobe adjacent to the major fissure laterally. Slight wedge configuration of T which appears chronic and healing fractures of the right 7th, 9th, and 10th ribs laterally. DISCHARGE MEDICATIONS: - amlodipine 10 mg by mouth daily - steroid taper - albuterol inhalation nebulizer every 4 hours as needed - albuterol two puff inhalation every 4 hours as needed - Motrin 800 mg by mouth as needed - albuterol/ipratropium inhalation every 4 hours as needed - Mobic 7.5 mg by mouth twice a day - Percocet one tablet by mouth four times a day as needed - Protonix 40 mg by mouth daily - Advair one puff inhalation twice a day - sertraline 200 mg by mouth daily - Spiriva one inhalation daily DISCHARGE INSTRUCTIONS: Discontinue lines. Discharge home. Activity as tolerated. Diet as tolerated. Patient should followup with her primary care provider in 1 week. Patient should followup with hand shaker in 1 week for perihilar nodular density followup. DISCHARGE CONDITION: Fair. DISCHARGE TIME: Greater than 30 minutes.
== END 2018-07-23 11:21 | disposition home or self-care (01) | DRG 192 ==
LOC: M ED 16:09 → M ED INP 20:21 → M MSPAV 22:15 → M MS4PR 07-16 22:02
PROVIDERS: ADMIT Internal Medicine; ATTEND Internal Medicine
DX: J44.1 Chronic obstructive pulmonary disease with (acute) exacerbation (principal); F32.9 Major depressive disorder, single episode, unspecified; M54.5 Low back pain; I10 Essential (primary) hypertension; R91.1 Solitary pulmonary nodule; Z79.899 Other long term (current) drug therapy; K21.9 Gastro-esophageal reflux disease without esophagitis; B34.8 Other viral infections of unspecified site

== ENCOUNTER 2018-08-15 11:27 | Emergency (ER) | payer MEDICARE ==
[~2018-08-15] VITALS: Ht 157.5 cm; Wt 75.0 kg
[~2018-08-15 11:27] MED LIST changes: +ALBU83IN NEB; +AMLO10TA5 PO; +IPRA0.00 IN; +MOBI4TAB PO; +OXYC10TA3 PO; +PANT40TA3 PO; +PRED10PA2 PO; +PRED10TA2 PO; +SPIR1CAP INH
[2018-08-15] MEDS ORDERED: PRED25TA PO (11:40)
[2018-08-15 12:22] LABS: BASO % 0.2 % (0.0-1.0); EOS # 0.1 10^3/uL (0.0-0.50); EOS % 0.9 % (0.0-3.0); HEMATOCRIT 43.7 % (42.0-52.0); HEMOGLOBIN 15.2 g/dl (13.5-17.5); LYMPH # 1.4 10^3/uL (1.5-4.5); LYMPH % 14.1 % (24.0-44.0); MEAN CORPUSCULAR HEMOGLOBIN 30.6 pg (27.0-33.0); MEAN CORPUSCULAR HGB CONC 34.8 g/dl (32.0-36.5); MEAN CORPUSCULAR VOLUME 88.1 fl (80.0-96.0); MONO # 0.8 10^3/uL (0.0-0.8); MONO % 7.8 % (0.0-5.0); NEUTROPHILS # 7.3 10^3/uL (1.8-7.7); NEUTROPHILS % 76.3 % (36.0-66.0); PLATELET COUNT, AUTOMATED 203 10^3/uL (150-450); RED BLOOD COUNT 4.96 10^6/uL (4.30-6.10); WHITE BLOOD COUNT 9.6 10^3/uL (4.0-10.0)
[2018-08-15 12:34] LABS: INR 0.9; PARTIAL THROMBOPLASTIN TIME 25.7 SECONDS (25.4-37.6); PROTHROMBIN TIME 12.2 SECONDS (12.1-14.4)
[2018-08-15 12:54] LABS: ALBUMIN 3.6 GM/DL (3.2-5.2); ALT/SGPT 18 U/L (12-78); BILIRUBIN,DIRECT < 0.1 MG/DL (0.0-0.2); BILIRUBIN,TOTAL 0.4 MG/DL (0.2-1.0); BLOOD UREA NITROGEN 14 MG/DL (7-18); CALCIUM LEVEL 8.9 MG/DL (8.8-10.2); CARBON DIOXIDE LEVEL 27 MEQ/L (21-32); CHLORIDE LEVEL 103 MEQ/L (98-107); CPK CREATINE PHOSPHOKINASE 48 U/L (39-308); CREATININE FOR GFR 0.83 MG/DL (0.70-1.30); FREE T4 1.01 NG/DL (0.76-1.46); GLOMERULAR FILTRATION RATE > 60.0 (>49); GLUCOSE, FASTING 119 MG/DL (70-100); MB/CK RELATIVE INDEX 3.33 (< OR =4); NT-PRO BNP 12 PG/ML (<125); POTASSIUM SERUM 3.7 MEQ/L (3.5-5.1); SODIUM LEVEL 139 MEQ/L (136-145); THYROID STIMULATING HORMONE 0.607 uIU/ML (0.358-3.740); TOTAL PROTEIN 6.3 GM/DL (6.4-8.2); TROPONIN I < 0.02 NG/ML (< 0.10)
[2018-08-15] MEDS ORDERED: ALBUTEROL SULFATE 2.5 MG/0.5 ML INH NEB SOLN INH ONE (13:15)
[2018-08-15] MEDS ORDERED: dexameTHASONE 20 MG/5 ML VIAL (J1100) IV ONE (13:15)
[2018-08-15] MEDS ORDERED: IPRATROPIUM 0.5MG/ALBUTEROL 2.5MG INH SOL UD 3ML (DUONEB)(J7620) NEB ONE (13:15)
[2018-08-15] MEDS ORDERED: ISOVUE-370 76% 100ML VIAL (Q9967) As Ordered ONE ×2 (13:37→14:03)
[2018-08-15 13:40] LABS: ABG pH (ARTERIAL) 7.408 UNITS (7.350-7.450)
[2018-08-15 13:41] LABS: ABG BASE EXCESS 3.8 (-2.0-2.0); ABG HCO3 29.4 MEQ/L (22.0-26.0); ABG O2 SATURATION 68.8 % (95.0-99.0); ABG PARTIAL PRESSURE CO2 47.7 mmHg (35.0-45.0); ABG STANDARD HCO3 27.1 MEQ/L (22.0-26.0); ABG TOTAL CO2 30.9 MEQ/L (23.0-31.0)
--- NOTE | 2018-08-15 14:22 | REP ---
CHEST, TWO VIEWS: COMPARISON: 07/14/2018. There is stable chronic interstitial fibrotic changes without definite superimposed acute infiltrate. Heart is normal in size. Prominent right cardiophrenic fat pad is again noted. The mediastinal silhouette is unchanged. There are mild degenerative changes of the spine. IMPRESSION: Stable chronic findings without acute infiltrate. Electronically Signed by Marcos Trivedi MD 08/16/2018 11:18 A
--- NOTE | 2018-08-15 14:40 | REP ---
Clinical: Acute chest pain and shortness of breath . Technique: Axial contrast enhanced images from the thoracic inlet to the upper abdomen using 100 ml Isovue 370 intravenous contrast material with coronal and sagittal re-formations. Comparison: 07/14/2018, 05/17/2018, 03/10/2017 Findings: Satisfactory enhancement of the pulmonary vasculature is achieved and no filling defects are identified to suggest pulmonary embolus. Atherosclerotic changes to the thoracic aorta and coronary arteries noted without aortic aneurysm/dissection, cardiomegaly or pericardial effusion. Lung farmer demonstrate age-related chronic interstitial changes and mild bronchiectasis as well as lingular and left basilar scarring with trace atelectasis. These findings along with small scattered nodules identified on prior examination remain relatively stable. No significantly increased nodule or mass lesion is appreciated. No consolidation. No effusion. No pneumothorax. No adenopathy. Osseous structures demonstrate age-related changes without focal abnormality. Impression: No evidence for pulmonary embolus. No acute consolidation or effusion. Chronic appearing pleuroparenchymal changes along with few scattered stable small nodular densities unchanged from prior examination. Electronically Signed by Andrei Rosenberg MD 08/15/2018 02:30 P
[2018-08-15] MEDS ORDERED: predniSONE 20 MG TAB PO ONE (15:30)
[2018-08-15] MEDS ORDERED: PRED10TA2 PO (15:55)
[2018-08-15 16:22] VITALS: BP 157/88
--- NOTE | 2018-08-16 07:19 | ECGEPIP ---
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
== END 2018-08-15 16:33 | disposition home or self-care (01) ==
LOC: M ED 11:27
DX: J44.1 Chronic obstructive pulmonary disease with (acute) exacerbation (principal); F33.9 Major depressive disorder, recurrent, unspecified; Z99.81 Dependence on supplemental oxygen; Z79.899 Other long term (current) drug therapy; Z87.891 Personal history of nicotine dependence
CPT/HCPCS: 36415; 36600; 71046; 71275; 80048; 80076; 82550; 82553; 82803; 83880; 84439; 84443; 84484; 85025; 85610; 85730; 87486; 87581; 87633; 87798; 93005; 93041; 94640; 99285; Q9967

== ENCOUNTER → 2018-11-04 | Outpatient (CLI) | payer MEDICARE, MEDICAID ==
[~2018-11-04] MED LIST changes: +ADV500INH INH; +BAYE325T16 PO; +CARV6.25 PO; +CLAR10CA3 PO; +FURO20TA2 PO; +K-TA10TA2 PO; +LOSA25TA14 PO; +PRED25TA PO; +PROTPAK PO; +SUCR1TA PO; +[UNRECOGNIZED DRUG - CODE] PO
[2018-11-04 17:49] LABS: BASO % 0.3 % (0.0-1.0); EOS # 0.1 10^3/uL (0.0-0.50); EOS % 0.9 % (0.0-3.0); HEMATOCRIT 39.8 % (42.0-52.0); HEMOGLOBIN 13.3 g/dl (13.5-17.5); LYMPH # 1.2 10^3/uL (1.5-4.5); LYMPH % 17.8 % (24.0-44.0); MEAN CORPUSCULAR HGB CONC 33.4 g/dl (32.0-36.5); MEAN CORPUSCULAR VOLUME 89.8 fl (80.0-96.0); MONO # 0.5 10^3/uL (0.0-0.8); MONO % 8.1 % (0.0-5.0); NEUTROPHILS # 4.8 10^3/uL (1.8-7.7); NEUTROPHILS % 72.7 % (36.0-66.0); PLATELET COUNT, AUTOMATED 174 10^3/uL (150-450); RED BLOOD COUNT 4.43 10^6/uL (4.30-6.10); WHITE BLOOD COUNT 6.6 10^3/uL (4.0-10.0)
[2018-11-04 17:51] LABS: APPEARANCE, URINE CLEAR (CLEAR); BACTERIA, URINE AUTO NEGATIVE (NEGATIVE); BILIRUBIN, URINE AUTO NEGATIVE (NEGATIVE); BLOOD, URINE BLOOD NEGATIVE (NEGATIVE); COLOR, URINE YELLOW (YELLOW); GLUCOSE, URINE (UA) AUTO NEGATIVE (NEGATIVE); KETONE, URINE AUTO NEGATIVE (NEGATIVE); LEUKOCYTE ESTERASE, URINE AUTO NEGATIVE (NEGATIVE); NITRITE, URINE AUTO NEGATIVE (NEGATIVE); PROTEIN, URINE AUTO NEGATIVE (NEGATIVE); RBC, URINE AUTO 1 /HPF (0-3); SPECIFIC GRAVITY URINE AUTO 1.015 (1.002-1.035); SQUAMOUS EPITHELIAL CELL UR AU 0 /HPF (0-6); UROBILINOGEN, URINE AUTO 0.2 mg/dL (0.0-2.0); WBC, URINE AUTO 0 /HPF (0-3)
[2018-11-04 17:53] LABS: ALBUMIN 3.7 GM/DL (3.2-5.2); ALT/SGPT 19 U/L (12-78); BILIRUBIN,TOTAL 0.5 MG/DL (0.2-1.0); BLOOD UREA NITROGEN 13 MG/DL (7-18); CALCIUM LEVEL 8.6 MG/DL (8.8-10.2); CARBON DIOXIDE LEVEL 32 MEQ/L (21-32); CHLORIDE LEVEL 104 MEQ/L (98-107); CHOLESTEROL LEVEL 238 MG/DL (<200); CHOLESTEROL RISK RATIO 4.666 (<5); CREATININE FOR GFR 0.82 MG/DL (0.70-1.30); FREE T4 0.99 NG/DL (0.76-1.46); GLOMERULAR FILTRATION RATE > 60.0 (>49); GLUCOSE, FASTING 101 MG/DL (70-100); HDL CHOLESTEROL 51 MG/DL (>40); LDL CHOLESTEROL 147 MG/DL (<100); NON-HDL-C 187 MG/DL; POTASSIUM SERUM 3.8 MEQ/L (3.5-5.1); SODIUM LEVEL 141 MEQ/L (136-145); THYROID STIMULATING HORMONE 0.364 uIU/ML (0.358-3.740); TOTAL PROTEIN 6.6 GM/DL (6.4-8.2); TRIGLYCERIDES LEVEL 202 MG/DL (<150)
== END ==
LOC: M WUC 11:33
PROVIDERS: ATTEND Internal Medicine
DX: N40.1 Benign prostatic hyperplasia with lower urinary tract symptoms (principal); I10 Essential (primary) hypertension; E78.5 Hyperlipidemia, unspecified
CPT/HCPCS: 36415; 80053; 80061; 81001; 84439; 84443; 85025; G0103

== ENCOUNTER 2018-11-12 09:06 | Day surgery (SDC) | payer MEDICARE, MEDICAID ==
[~2018-11-12] VITALS: Ht 157.5 cm; Wt 78.9 kg
[~2018-11-12 09:06] MED LIST changes: -BAYE325T16 PO; -FURO20TA2 PO; -K-TA10TA2 PO; -PROTPAK PO; -[UNRECOGNIZED DRUG - CODE] PO
[2018-11-12] MEDS ORDERED: LIDOCAINE 2% INJ 100 MG/5 ML SDV (FOR ANES.) As Ordered ONE (11:06)
[2018-11-12] MEDS ORDERED: PROPOFOL 200 MG/20 ML VIAL As Ordered ONE (11:06)
--- NOTE | 2018-11-12 11:07 | ROOR ---
Patient Name: Beau Hernández Procedure Date: 11/12/2018 10:50 AM Date of : 1955 Age: 63 Room: [facility] Gender: Male Note Status: Finalized Procedure: Upper Endoscopy + Biopsies Indications: Heartburn, Exclusion of Stokes's esophagus Providers: Luis Felipe Benjamin MD Referring MD: Edy Kumar MD Requesting Provider: Medicines: Monitored Anesthesia Care Complications: No immediate complications. Procedure: Pre-Anesthesia Assessment: - The heart rate, respiratory rate, oxygen saturations, blood pressure, adequacy of pulmonary ventilation, and response to care were monitored throughout the procedure. The Endoscope was introduced through the mouth, and advanced to the second part of duodenum. The upper GI endoscopy was accomplished without difficulty. The patient tolerated the procedure well. Findings: The Z-line was irregular and was found 40 cm from the incisors. Multiple biopsies were obtained with cold forceps for evaluation to rule out Stokes's Esophagus randomly at the gastroesophageal junction. A medium-sized hiatal hernia was present. No other significant abnormalities were identified in a careful examination of the stomach. The exam of the duodenum was otherwise normal. Impression: - Z-line irregular, 40 cm from the incisors. - Medium-sized hiatal hernia. - Multiple biopsies were obtained at the gastroesophageal junction. - The examination was otherwise normal. Recommendation: - Patient has a contact number available for emergencies. The signs and symptoms of potential delayed complications were discussed with the patient. Return to normal activities tomorrow. Written discharge instructions were provided to the patient. - High fiber diet. - Discharge patient to home. - Follow an antireflux regimen. - Continue present medications. - Await pathology results. - Telephone GI clinic for pathology results in 1 week. - Return to referring physician. - The findings and recommendations were discussed with the patient's family. Luis Felipe Bnejamin MD Luis Felipe Benjamin MD 11/12/2018 11:07:08 AM Electronically signed by Luis Felipe Benjamin MD Number of Addenda: 0 Note Initiated On: 11/12/2018 10:50 AM Estimated Blood Loss: Estimated blood loss: none.
[2018-11-12 11:30] VITALS: BP 168/90
[2018-11-12] MEDS ORDERED: NS 1,000 ML IV ONE (14:00)
== END 2018-11-12 11:37 | disposition home or self-care (01) ==
LOC: M OPP 09:06
PROVIDERS: ATTEND Internal Medicine Gastroenterology
DX: K22.8 Other specified diseases of esophagus (principal); K44.9 Diaphragmatic hernia without obstruction or gangrene; R12 Heartburn; J44.9 Chronic obstructive pulmonary disease, unspecified; Z79.891 Long term (current) use of opiate analgesic; Z79.899 Other long term (current) drug therapy; Z87.891 Personal history of nicotine dependence

== ENCOUNTER → 2018-11-22 | Outpatient (CLI) | payer MEDICARE, MEDICAID ==
[~2018-11-22] MED LIST changes: +BAYE325T16 PO; +FURO20TA2 PO; +K-TA10TA2 PO; +PROTPAK PO; +[UNRECOGNIZED DRUG - CODE] PO
--- NOTE | 2018-11-22 12:42 | REP ---
MRI LEFT KNEE WITHOUT CONTRAST: HISTORY: Osteoarthritis. No comparison MR imaging. No comparison radiographs are available. TECHNIQUE: Axial, coronal, and sagittal imaging planes utilized. T1, proton density and T2-weighted scans are obtained with and without fat saturation in the usual fashion. MRI FINDINGS: There is a moderate to large joint effusion in the suprapatellar bursa. There is a tiny Rockwell's cyst in the posteromedial popliteal soft tissues. There is no visible loose body. There is a suprapatellar plica superior and medial in the suprapatellar bursa. There is no evidence of medial or lateral collateral ligament disruption. Patellar and quadriceps tendons have an intact appearance. Anterior and posterior cruciate ligaments appear intact although there is some increased signal intensity and questionable thickening in the posterior cruciate ligament consistent with tendinosis or partial tear. There is a complex focal tear in the posterior horn of the medial meniscus which extends to the inner free margin. There is a horizontal component of the tear in the posterior body of the medial meniscus. No lateral tear is appreciated. There is moderate chondromalacia involving the medial femoral condyle. There is a normal fabella. IMPRESSION: Complex tear posterior horn and posterior body medial meniscus. Medial femoral condylar chondromalacia. Moderate to large joint effusion with a suprapatellar plica medially. Increased signal intensity and thickening in the posterior cruciate ligament question partial injury. Small Rockwell's cyst. Electronically Signed by Canelo Pepper MD 11/22/2018 04:46 P
== END ==
LOC: M RAD 09:16
PROVIDERS: ATTEND Physician Assistant
DX: M17.12 Unilateral primary osteoarthritis, left knee (principal); R93.7 Abnormal findings on diagnostic imaging of other parts of musculoskeletal system

== ENCOUNTER → 2019-01-23 | Outpatient (CLI) | payer MEDICAID, MEDICARE ==
[2019-01-23 14:20] LABS: BASO % 0.5 % (0.0-1.0); EOS % 0.5 % (0.0-3.0); HEMATOCRIT 43.9 % (42.0-52.0); HEMOGLOBIN 14.7 g/dl (13.5-17.5); LYMPH # 1.1 10^3/uL (1.5-5.0); LYMPH % 13.2 % (24.0-44.0); MEAN CORPUSCULAR HEMOGLOBIN 30.7 pg (27.0-33.0); MEAN CORPUSCULAR HGB CONC 33.5 g/dl (32.0-36.5); MEAN CORPUSCULAR VOLUME 91.6 fl (80.0-96.0); MONO # 0.4 10^3/uL (0.0-0.8); MONO % 4.8 % (0.0-5.0); NEUTROPHILS # 6.4 10^3/uL (1.5-8.5); NEUTROPHILS % 80.1 % (36.0-66.0); PLATELET COUNT, AUTOMATED 215 10^3/uL (150-450); RED BLOOD COUNT 4.79 10^6/uL (4.30-6.10)
--- NOTE | 2019-01-23 14:36 | REP ---
Clinical: Acute bronchitis. Technique: PA and lateral. Comparison: 08/15/2018. Findings: Mediastinum and cardiac silhouette are stable with cardiomegaly again suggested. Lung farmer demonstrate chronic interstitial changes. Small focal area of atelectasis along the periphery of the left mid/lower lung zone suggested. No further consolidation. No effusion. No pneumothorax. Skeletal structures intact. Impression: Small focal opacity in the periphery of the left mid lung zone suggesting atelectasis. Follow-up examination warranted. Electronically Signed by Andrei Rosenberg MD 01/23/2019 02:27 P
[2019-01-23 14:51] LABS: BLOOD UREA NITROGEN 16 MG/DL (7-18); CALCIUM LEVEL 9.2 MG/DL (8.8-10.2); CARBON DIOXIDE LEVEL 33 MEQ/L (21-32); CHLORIDE LEVEL 100 MEQ/L (98-107); CREATININE FOR GFR 0.98 MG/DL (0.70-1.30); GLOMERULAR FILTRATION RATE > 60.0 (>49); GLUCOSE, FASTING 177 MG/DL (70-100); NT-PRO BNP 29 PG/ML (<125); SODIUM LEVEL 139 MEQ/L (136-145)
--- NOTE | 2019-01-23 14:53 | REP ---
Clinical: Hydrocele. Technique: Real time bhatt scale and color Doppler evaluation using linear high frequency transducer. Findings: The bilateral testicles and epididymi are essentially normal in contour, size, echogenicity, and vascularity without intratesticular mass lesion, infectious/inflammatory process, or torsion. Incidental 3 mm left epididymal head cyst noted. No hydroceles. Large bilateral hydroceles containing septations and debris are appreciated and may reflect sequelae of prior infectious process. Right testicle measures 4.2 x 3.3 x 3.3 cm. Left testicle measures 4.1 x 3.1 x 3.0 cm. Impression: 1. Large bilateral complex hydroceles with septations and debris. 2. Normal bilateral testicles. Electronically Signed by Andrei Rosenberg MD 01/23/2019 02:44 P
== END ==
LOC: M RAD 13:21
PROVIDERS: ATTEND Internal Medicine
DX: N43.3 Hydrocele, unspecified (principal); S22.32XA Fracture of one rib, left side, initial encounter for closed fracture; X58.XXXA Exposure to other specified factors, initial encounter; Y92.89 Other specified places as the place of occurrence of the external cause; J20.9 Acute bronchitis, unspecified; I11.0 Hypertensive heart disease with heart failure; I50.9 Heart failure, unspecified

== ENCOUNTER → 2019-01-28 | Outpatient (CLI) | payer MEDICARE, MEDICAID ==
--- NOTE | 2019-01-28 17:33 | REP ---
Five views right ribs/chest: 01/28/2019. Indication: Chest trauma. Comparison: 01/23/2019. Findings: No displaced rib fracture is detected. There is no evidence of lung contusion. No air space consolidation, pleural effusion or pneumothorax is present. Impression: No acute rib fracture detected. Electronically Signed by Heber Joe DO 01/28/2019 05:25 P
== END ==
LOC: M RAD 15:31
PROVIDERS: ATTEND Internal Medicine
DX: S22.31XA Fracture of one rib, right side, initial encounter for closed fracture (principal); X58.XXXA Exposure to other specified factors, initial encounter; Y92.9 Unspecified place or not applicable
CPT/HCPCS: 71101; G0463

== ENCOUNTER → 2019-02-17 | Outpatient (CLI) | payer MEDICARE, MEDICAID ==
[2019-02-17 13:08] LABS: HEMATOCRIT 38.9 % (42.0-52.0); MEAN CORPUSCULAR HEMOGLOBIN 30.7 pg (27.0-33.0); MEAN CORPUSCULAR HGB CONC 33.4 g/dl (32.0-36.5); PLATELET COUNT, AUTOMATED 165 10^3/uL (150-450); RED BLOOD COUNT 4.23 10^6/uL (4.30-6.10)
[2019-02-17 13:09] LABS: APPEARANCE, URINE CLEAR (CLEAR); BACTERIA, URINE AUTO NEGATIVE (NEGATIVE); BILIRUBIN, URINE AUTO NEGATIVE (NEGATIVE); BLOOD, URINE BLOOD NEGATIVE (NEGATIVE); COLOR, URINE YELLOW (YELLOW); GLUCOSE, URINE (UA) AUTO NEGATIVE (NEGATIVE); KETONE, URINE AUTO NEGATIVE (NEGATIVE); LEUKOCYTE ESTERASE, URINE AUTO NEGATIVE (NEGATIVE); NITRITE, URINE AUTO NEGATIVE (NEGATIVE); PROTEIN, URINE AUTO NEGATIVE (NEGATIVE); RBC, URINE AUTO 1 /HPF (0-3); SPECIFIC GRAVITY URINE AUTO 1.025 (1.002-1.035); SQUAMOUS EPITHELIAL CELL UR AU 0 /HPF (0-6); UROBILINOGEN, URINE AUTO 0.2 mg/dL (0.0-2.0); WBC, URINE AUTO 0 /HPF (0-3)
[2019-02-17 13:19] LABS: PARTIAL THROMBOPLASTIN TIME 23.7 SECONDS (25.0-38.4); PROTHROMBIN TIME 12.9 SECONDS (11.8-14.0)
[2019-02-17 13:33] LABS: BLOOD UREA NITROGEN 20 MG/DL (7-18); CALCIUM LEVEL 9.2 MG/DL (8.8-10.2); CARBON DIOXIDE LEVEL 30 MEQ/L (21-32); CHLORIDE LEVEL 103 MEQ/L (98-107); CREATININE FOR GFR 0.91 MG/DL (0.70-1.30); GLOMERULAR FILTRATION RATE > 60.0 (>49); GLUCOSE, FASTING 168 MG/DL (70-100); POTASSIUM SERUM 4.2 MEQ/L (3.5-5.1); SODIUM LEVEL 141 MEQ/L (136-145)
--- NOTE | 2019-02-17 16:28 | ECGEPIP ---
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 No significant change compared with 08/15/2018. Electronically Signed on 02-17-2019 16:28:04 EST by Ej Harman
== END ==
LOC: M LAB 12:40
PROVIDERS: ATTEND Nurse Practitioner Women's Health
DX: Z01.818 Encounter for other preprocedural examination (principal); N43.3 Hydrocele, unspecified; Z79.899 Other long term (current) drug therapy

== ENCOUNTER 2019-03-01 09:34 | Day surgery (SDC) | payer MEDICARE, MEDICAID ==
[~2019-03-01] VITALS: Ht 157.5 cm; Wt 80.3 kg
[~2019-03-01 09:34] MED LIST changes: +LR 1,000 ML IV ONE; +ceFAZolin SOD 2 GM in IV 1 EA IV ONE
[2019-03-01] MEDS ORDERED: LIDOCAINE 2% INJ 100 MG/5 ML SDV (FOR ANES.) As Ordered ONE (09:53)
[2019-03-01] MEDS ORDERED: ONDANSETRON 4MG/2ML VIAL (J2405) As Ordered ONE (09:54)
[2019-03-01] MEDS ORDERED: dexameTHASONE 4 MG/ML 1ML VIAL (J1100) As Ordered ONE (09:54)
[2019-03-01] MEDS ORDERED: MIDAZOLAM INJ 2 MG/2 ML VIAL (J2250) As Ordered ONE (09:54)
[2019-03-01] MEDS ORDERED: fentaNYL 100 MCG/2 ML INJECTION (J3010) As Ordered ONE (09:54)
[2019-03-01] MEDS ORDERED: PROPOFOL 500 MG/50 ML VIAL As Ordered ONE (10:04)
[2019-03-01] MEDS ORDERED: ALBUTEROL SULFATE 2.5 MG/0.5 ML INH NEB SOLN INH ONE (10:15)
[2019-03-01] MEDS ORDERED: LIDOCAINE 2% MDV 20 ML VIAL As Ordered ONE (11:15)
[2019-03-01] MEDS ORDERED: BUPIVACAINE HCL 0.25% 10 ML VIAL As Ordered ONE (11:15)
[2019-03-01] MEDS: PERCOCET 5MG/325MG TAB PO PRN ×2 (13:45→14:25)
[2019-03-01] MEDS ORDERED: LR 1,000 ML IV SCH ×2 (13:45)
[2019-03-01] MEDS ORDERED: fentaNYL 100 MCG/2 ML INJECTION (J3010) IV PRN (13:45)
[2019-03-01] MEDS ORDERED: ONDANSETRON 4MG/2ML VIAL (J2405) IV PRN (13:45)
[2019-03-01 16:00] VITALS: BP 138/78
--- NOTE | 2019-03-01 18:59 | ROOPDOC ---
[facility] Report Of Operation Report of Operation DATE OF PROCEDURE: 03/01/19 PREPROCEDURE DIAGNOSES: [Bilateral hydrocele]. POSTPROCEDURE DIAGNOSES: [Same]. PROCEDURE: [Bilateral hydrocelectomy]. SURGEON: [Dorian]MD LEGAL ASSOCIATE: [None], ANESTHESIA: [Spinal with Mac]. ESTIMATED BLOOD LOSS: Approximately [minimal] mL. COMPLICATIONS: [None]. REMARKS: . PROCEDURE NOTE: [63-year-old gentleman noted to have bilateral hydroceles. Ultrasound was obtained to self hydroceles without any masses or hernias were noted within the scrotum. Risks, benefits and complications of hydrocelectomies was discussed with the patient. Patient do to increasing discomfort wanted a hydrocelectomy]. DESCRIPTION OF PROCEDURE: [Patient identified as himself. His H&P was updated his consent was reviewed and signed. Risk and benefits of the procedure were discussed with the patient and his . Patient was seen by the operating room team and anesthesia. Patient right sided scrotal was marked the correct side for surgery Patient was consented for spinal anesthesia with Mac. Patient was brought to the operating room first timeout was performed. Patient was given spinal anesthesia and placed in the supine position. Prepped and Draped in standard fashion. The right hemiscrotum was placed in the tension incision was made in the midline of the scrotum, dissecting through the skin into the right hemiscrotum through dartos muscle, then through the superficial fascia down to the cremasteric muscle and fascia. Once reaching the tunica vaginalis, care was taken not to enter into the hydrocele sac. The tunica was then mobilized away from the cremasteric muscle until the sac was easily exposed. An incision was made into the sac and fluid was then drained. The incision was extended along the tunica vaginalis assuring not to injure the testicles, the structures of the spermatic cord, or epididymis. The hydrocele sac was then inverted and wrapped around the spermatic cord. It was oversewed using a 3-0 Monocryl suture in a running technique. The hemiscrotum and the skin was inspected to assure that hemostasis was maintained. The same was performed on the left side. Both hemiscrotums were also irrigated. The cremasteric muscle and fascia and the superficial layer oversew using a 3-0 Monocryl suture in a running technique. Dartos fascia was then closed using a 3-0 Monocryl using a horizontal mattress technique. This was done bilaterally. The skin was then closed using a running technique with a 4-0 Monocryl suture. 10 mL of epi mixed with 0.25 Marcaine was injected along the suture line for additional anesthetic. Hemostasis was maintained throughout the entire procedure. A pressure dressing was place and a scrotal support was placed on the patient. Patient was washed off and awakened from sedation and taken to recovery room without complication.]. NIDIA RICHARD MD Mar 01, 2019 18:58
== END 2019-03-01 16:10 | disposition home or self-care (01) ==
LOC: M SDC 09:34
PROVIDERS: ATTEND Urology
DX: N43.3 Hydrocele, unspecified (principal); J44.9 Chronic obstructive pulmonary disease, unspecified; J96.11 Chronic respiratory failure with hypoxia; J45.909 Unspecified asthma, uncomplicated; N40.0 Benign prostatic hyperplasia without lower urinary tract symptoms; K21.9 Gastro-esophageal reflux disease without esophagitis; I10 Essential (primary) hypertension; E78.00 Pure hypercholesterolemia, unspecified; Z99.81 Dependence on supplemental oxygen; M54.9 Dorsalgia, unspecified; F41.9 Anxiety disorder, unspecified; F32.9 Major depressive disorder, single episode, unspecified; G43.909 Migraine, unspecified, not intractable, without status migrainosus; M17.0 Bilateral primary osteoarthritis of knee; Z87.891 Personal history of nicotine dependence; M16.0 Bilateral primary osteoarthritis of hip; M46.90 Unspecified inflammatory spondylopathy, site unspecified; Z79.899 Other long term (current) drug therapy; Z79.51 Long term (current) use of inhaled steroids; Z79.82 Long term (current) use of aspirin; Z79.52 Long term (current) use of systemic steroids
CPT/HCPCS: 55041; J0690; J1100; J2250; J2405; J3010

== ENCOUNTER → 2019-04-17 | Outpatient (REF) | payer MEDICARE, MEDICAID ==
[~2019-04-17] MED LIST changes: -LR 1,000 ML IV ONE; -ceFAZolin SOD 2 GM in IV 1 EA IV ONE
[2019-04-17 17:57] LABS: APPEARANCE, URINE CLEAR (CLEAR); BACTERIA, URINE AUTO NEGATIVE (NEGATIVE); BILIRUBIN, URINE AUTO NEGATIVE (NEGATIVE); BLOOD, URINE BLOOD 1+ (NEGATIVE); COLOR, URINE STRAW (YELLOW); GLUCOSE, URINE (UA) AUTO 3+ mg/dL (NEGATIVE); KETONE, URINE AUTO NEGATIVE (NEGATIVE); LEUKOCYTE ESTERASE, URINE AUTO NEGATIVE (NEGATIVE); MUCUS, URINE SMALL (NEGATIVE); NITRITE, URINE AUTO NEGATIVE (NEGATIVE); PROTEIN, URINE AUTO NEGATIVE (NEGATIVE); RBC, URINE AUTO 0 /HPF (0-3); SQUAMOUS EPITHELIAL CELL UR AU 0 /HPF (0-6); UROBILINOGEN, URINE AUTO 0.2 mg/dL (0.0-2.0); WBC, URINE AUTO 0 /HPF (0-3)
== END ==
LOC: M SMT 16:48
PROVIDERS: ATTEND Nurse Practitioner Women's Health
DX: R39.15 Urgency of urination (principal)

== ENCOUNTER → 2019-04-17 | Outpatient (CLI) | payer MEDICARE, MEDICAID ==
--- NOTE | 2019-04-17 16:50 | REPPI ---
PA and lateral chest: Comparison is 01/23/2019. The lung farmer are clear. A focal atelectasis identified previously in the left lung has resolved. Cardiac size is upper normal. The iker, mediastinum, skeletal structures are unremarkable. Impression: No acute cardiopulmonary findings. Electronically Signed by Marcos Gaitan MD 04/17/2019 04:42 P
== END ==
LOC: M PLAIMG 15:55
PROVIDERS: ATTEND Internal Medicine Pulmonary Disease
DX: J96.11 Chronic respiratory failure with hypoxia (principal); J43.1 Panlobular emphysema; R39.15 Urgency of urination

== ENCOUNTER → 2019-04-19 | Outpatient (CLI) | payer MEDICARE, MEDICAID ==
--- NOTE | 2019-04-19 14:47 | REP ---
SCROTAL SONOGRAPHY: HISTORY: Hydrocele. Comparison scrotal sonography, January 23, 2019. FINDINGS: Bilateral, fairly large hydroceles are again noted similar to the prior study. Some free-floating debris and septations are seen in the hydroceles. There is evidence of a left scrotal emili. Epididymides are unremarkable. Testicular parenchyma is normal and homogeneous. Right testis measures 3.6 x 3.0 x 3.1 cm. Left testicular dimensions are 4.2 x 2.8 x 2.8 cm. Doppler flow is present in both testes. Resistive indices are 0.52 on the right and 0.51 on the left. IMPRESSION: Moderate to large size bilateral scrotal hydroceles with septations. These appear somewhat improved. No intratesticular lesion is seen. Electronically Signed by Canelo Pepper MD 04/19/2019 06:39 P
== END ==
LOC: M RAD 10:35
PROVIDERS: ATTEND Nurse Practitioner Women's Health
DX: N43.3 Hydrocele, unspecified (principal)

== ENCOUNTER → 2019-04-30 | Outpatient (REF) | payer MEDICARE, MEDICAID ==
[~2019-04-30] MED LIST changes: +ATOR1TAB21; +ATOR1TAB21 PO; +AZIT-10 PO; +AZIT-12; +BUDE0.5S6 INH; +CARV12.5 PO; +DEXI60CA2 PO; +FLUT1BLS3 INH; +FURO80TA2; +FURO80TA2 PO; +GLIP5TAB8; +IPRA0.00 INH; +LORA-622 PO; +METF-839; +NASA1SPR; +OSEL75CA2 PO; +POTA10TA17; +POTA10TA17 PO; +PRED20TA PO; +SERT-138; +SPIR12.9 INH; +SPIR50TA4; +SPIR50TA4 PO; +XALA0.007 OU
[2019-04-30 18:12] LABS: ALT/SGPT 29 U/L (12-78); BILIRUBIN,TOTAL 0.3 MG/DL (0.2-1.0); BLOOD UREA NITROGEN 33 MG/DL (7-18); CALCIUM LEVEL 9.3 MG/DL (8.8-10.2); CARBON DIOXIDE LEVEL 29 MEQ/L (21-32); CHLORIDE LEVEL 96 MEQ/L (98-107); CHOLESTEROL LEVEL 350 MG/DL (<200); CHOLESTEROL RISK RATIO 8.536 (<5); CPK CREATINE PHOSPHOKINASE 47 U/L (39-308); CREATININE FOR GFR 1.42 MG/DL (0.70-1.30); GLOMERULAR FILTRATION RATE 53.4 (>49); GLUCOSE, FASTING 186 MG/DL (70-100); HDL CHOLESTEROL 41 MG/DL (>40); NON-HDL-C 309 MG/DL; NT-PRO BNP 22 PG/ML (<125); POTASSIUM SERUM 4.5 MEQ/L (3.5-5.1); SODIUM LEVEL 134 MEQ/L (136-145); TOTAL PROTEIN 7.2 GM/DL (6.4-8.2); TRIGLYCERIDES LEVEL 407 MG/DL (<150)
[2019-04-30 18:18] LABS: HEMOGLOBIN A1c 8.6 %
[2019-04-30 18:21] LABS: APPEARANCE, URINE TURBID (CLEAR); BACTERIA, URINE AUTO NEGATIVE (NEGATIVE); BILIRUBIN, URINE AUTO NEGATIVE (NEGATIVE); BLOOD, URINE BLOOD NEGATIVE (NEGATIVE); COLOR, URINE AMBER (YELLOW); GLUCOSE, URINE (UA) AUTO NEGATIVE (NEGATIVE); KETONE, URINE AUTO NEGATIVE (NEGATIVE); LEUKOCYTE ESTERASE, URINE AUTO NEGATIVE (NEGATIVE); NITRITE, URINE AUTO NEGATIVE (NEGATIVE); PROTEIN, URINE AUTO NEGATIVE (NEGATIVE); RBC, URINE AUTO 0 /HPF (0-3); SPECIFIC GRAVITY URINE AUTO 1.024 (1.002-1.035); SQUAMOUS EPITHELIAL CELL UR AU 0 /HPF (0-6); UROBILINOGEN, URINE AUTO 0.2 mg/dL (0.0-2.0); WBC, URINE AUTO 0 /HPF (0-3)
[2019-04-30 18:31] LABS: BASO % 0.3 % (0.0-1.0); EOS % 0.5 % (0.0-3.0); HEMATOCRIT 42.2 % (42.0-52.0); HEMOGLOBIN 14.7 g/dl (13.5-17.5); LYMPH # 1.7 10^3/uL (1.5-5.0); MEAN CORPUSCULAR HGB CONC 34.8 g/dl (32.0-36.5); MEAN CORPUSCULAR VOLUME 91.7 fl (80.0-96.0); MONO # 0.7 10^3/uL (0.0-0.8); MONO % 8.9 % (0.0-5.0); NEUTROPHILS # 5.2 10^3/uL (1.5-8.5); NEUTROPHILS % 66.5 % (36.0-66.0); PLATELET COUNT, AUTOMATED 199 10^3/uL (150-450); WHITE BLOOD COUNT 7.8 10^3/uL (4.0-10.0)
== END ==
LOC: M LABDRWCV 16:38
PROVIDERS: ATTEND Internal Medicine
DX: R73.9 Hyperglycemia, unspecified (principal); I50.20 Unspecified systolic (congestive) heart failure

== ENCOUNTER → 2019-05-07 | Outpatient (CLI) | payer MEDICAID, MEDICARE ==
[~2019-05-07] MED LIST changes: -ATOR1TAB21; -ATOR1TAB21 PO; -AZIT-10 PO; -AZIT-12; -BUDE0.5S6 INH; -CARV12.5 PO; -DEXI60CA2 PO; -FLUT1BLS3 INH; -FURO80TA2; -FURO80TA2 PO; -GLIP5TAB8; -IPRA0.00 INH; -LORA-622 PO; -METF-839; -NASA1SPR; -OSEL75CA2 PO; -POTA10TA17; -POTA10TA17 PO; -PRED20TA PO; -SERT-138; -SPIR12.9 INH; -SPIR50TA4; -SPIR50TA4 PO; -XALA0.007 OU
--- NOTE | 2019-05-07 14:02 | REP ---
Clinical: Chronic respiratory failure with history of emphysema Comparison: 04/17/2019 . Technique: PA and lateral. Findings: The mediastinum and cardiac silhouette are normal. The lung farmer demonstrate stable chronic changes without acute consolidation, effusion, or pneumothorax. The skeletal structures are intact and normal. Impression: 1. No acute cardiopulmonary process. Electronically Signed by Andrei Rosenberg MD 05/07/2019 01:53 P
== END ==
LOC: M RAD 13:17
PROVIDERS: ATTEND Internal Medicine Pulmonary Disease
DX: J96.11 Chronic respiratory failure with hypoxia (principal); J43.1 Panlobular emphysema

== ENCOUNTER → 2019-05-07 | Outpatient (REF) | payer MEDICARE, MEDICAID ==
[~2019-05-07] MED LIST changes: +ATOR1TAB21; +ATOR1TAB21 PO; +AZIT-10 PO; +AZIT-12; +BUDE0.5S6 INH; +CARV12.5 PO; +DEXI60CA2 PO; +FLUT1BLS3 INH; +FURO80TA2; +FURO80TA2 PO; +GLIP5TAB8; +IPRA0.00 INH; +LORA-622 PO; +METF-839; +NASA1SPR; +OSEL75CA2 PO; +POTA10TA17; +POTA10TA17 PO; +PRED20TA PO; +SERT-138; +SPIR12.9 INH; +SPIR50TA4; +SPIR50TA4 PO; +XALA0.007 OU
[2019-05-07 17:56] LABS: CALCIUM LEVEL 9.4 MG/DL (8.8-10.2); CREATININE FOR GFR 1.29 MG/DL (0.70-1.30); GLOMERULAR FILTRATION RATE 59.7 (>49); POTASSIUM SERUM 4.3 MEQ/L (3.5-5.1)
[2019-05-07 19:15] LABS: HEMOGLOBIN A1c 8.8 %
== END ==
LOC: M LABDRWCV 16:24
PROVIDERS: ATTEND Internal Medicine
DX: R73.9 Hyperglycemia, unspecified (principal); J96.11 Chronic respiratory failure with hypoxia; J43.1 Panlobular emphysema

== ENCOUNTER → 2019-05-16 | Outpatient (CLI) | payer MEDICARE, MEDICAID ==
[~2019-05-16] MED LIST changes: -ATOR1TAB21; -ATOR1TAB21 PO; -AZIT-10 PO; -AZIT-12; -BUDE0.5S6 INH; -CARV12.5 PO; -DEXI60CA2 PO; -FLUT1BLS3 INH; -FURO80TA2; -FURO80TA2 PO; -GLIP5TAB8; -IPRA0.00 INH; -LORA-622 PO; -METF-839; -NASA1SPR; -OSEL75CA2 PO; -POTA10TA17; -POTA10TA17 PO; -PRED20TA PO; -SERT-138; -SPIR12.9 INH; -SPIR50TA4; -SPIR50TA4 PO; -XALA0.007 OU
--- NOTE | 2019-05-16 16:32 | REP ---
Clinical: Abdominal pain. Technique: Axial noncontrast images from the lung bases to the pubic symphysis with coronal and sagittal re-formations. Comparison: 07/20/2016. Findings: Lung bases demonstrate chronic age-related interstitial changes. Liver, spleen, pancreas, gallbladder, bilateral adrenal glands and kidneys are relatively normal. A 2 mm nonobstructing right renal calculus is identified along with stable 4 cm left renal cyst. No acute perinephric stranding or hydronephrosis noted. The enteric system is without obstruction or acute inflammatory process. Sigmoid diverticulosis noted without acute diverticulitis. Pelvis demonstrates grossly normal bladder and age appropriate prostate/seminal vesicles. However, evaluation is somewhat limited due to beam-hardening artifact. No ascites. No free air. No adenopathy. Atherosclerotic changes to the aorta without aneurysm. Musculoskeletal structures demonstrate degenerative changes. Impression: 1. 2 mm nonobstructing right renal calculus and stable 4 cm left renal cyst. 2. Diverticulosis without acute diverticulitis. 3. No further acute abdominopelvic pathology appreciated. Electronically Signed by Andrei Rosenberg MD 05/16/2019 04:24 P
== END ==
LOC: M RAD 15:23
PROVIDERS: ATTEND Internal Medicine
DX: R10.9 Unspecified abdominal pain (principal)

== ENCOUNTER 2019-05-22 19:48 | Inpatient (IN) | payer MEDICARE, MEDICAID ==
[~2019-05-22] VITALS: Ht 157.5 cm; Wt 79.7 kg
[2019-05-22] MEDS ORDERED: dexameTHASONE 20 MG/5 ML VIAL (J1100) IV ONE (20:45)
[2019-05-22] MEDS ORDERED: ATOR1TAB21 (20:53)
[2019-05-22] MEDS ORDERED: GLIP5TAB8 (20:53)
[2019-05-22] MEDS ORDERED: FURO80TA2 (20:53)
[2019-05-22] MEDS ORDERED: SPIR50TA4 (20:53)
[2019-05-22] MEDS ORDERED: METF-839 (20:53)
[2019-05-22] MEDS ORDERED: SERT-138 (20:53)
[2019-05-22] MEDS ORDERED: AZIT-12 (20:53)
[2019-05-22] MEDS ORDERED: POTA10TA17 (20:53)
[2019-05-22] MEDS: IPRATROPIUM 0.5MG/ALBUTEROL 2.5MG INH SOL UD 3ML (DUONEB)(J7620) NEB SCH (21:16)
[2019-05-22 21:17] LABS: VENOUS BASE EXCESS -1.2 (-2.0-2.0); VENOUS HCO3 25.3 MEQ/L (23.0-27.0); VENOUS O2 SATURATION 77.8 % (60.0-80.0); VENOUS PARTIAL PRESSURE CO2 49.5 mmHg (38.0-50.0); VENOUS PARTIAL PRESSURE O2 44.7 mmHg (30.0-50.0); VENOUS PH 7.326 UNITS (7.330-7.430); VENOUS STANDARD HCO3 23.1 MEQ/L; VENOUS TOTAL CO2 26.8 MEQ/L (24.0-28.0)
[2019-05-22 21:26] LABS: BASO % 0.1 % (0.0-1.0); HEMATOCRIT 35.3 % (42.0-52.0); LYMPH # 0.3 10^3/uL (1.5-5.0); LYMPH % 4.5 % (24.0-44.0); MEAN CORPUSCULAR HEMOGLOBIN 31.4 pg (27.0-33.0); MEAN CORPUSCULAR VOLUME 92.4 fl (80.0-96.0); MONO # 0.7 10^3/uL (0.0-0.8); MONO % 9.5 % (0.0-5.0); NEUTROPHILS # 5.8 10^3/uL (1.5-8.5); PLATELET COUNT, AUTOMATED 159 10^3/uL (150-450); RED BLOOD COUNT 3.82 10^6/uL (4.30-6.10); WHITE BLOOD COUNT 6.9 10^3/uL (4.0-10.0)
[2019-05-22 21:42] LABS: CALCIUM LEVEL 8.4 MG/DL (8.8-10.2); CREATININE FOR GFR 1.38 MG/DL (0.70-1.30); GLOMERULAR FILTRATION RATE 55.2 (>49); POTASSIUM SERUM 4.6 MEQ/L (3.5-5.1)
[2019-05-22 21:49] LABS: INFLUENZA A AMPLIFICATION NEGATIVE (NEGATIVE); INFLUENZA B AMPLIFICATION POSITIVE (NEGATIVE)
[2019-05-22] MEDS ORDERED: OSELTAMIVIR PHOSPHATE 75 MG CAP (TAMIFLU) PO ONE (23:00)
--- NOTE | 2019-05-23 00:37 | HPEPDOC ---
[facility] Medical History & Physical Date of Admission May 23, 2019 Date of Service: May 23, 2019 Primary Care Physician: A Attending Physician: DARLING QUESADA MD History and Physical TIME OF SERVICE: 1:55 AM CHIEF COMPLAINT: Dyspnea HISTORY OF PRESENT ILLNESS: This is a 63 old male who presents with complaints of shortness of breath that began yesterday and got worse today. His cough that is usually wet is dry and worse than usual today rate. He is also having abdominal and chest pain better made worse by coughing. He denies having fevers. 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 Today, his garbage pick up worker's office called him and recommended that he come to the hospital for evaluation. REVIEW OF SYSTEMS: 12 point review of systems negative except as listed in HPI PAST MEDICAL/ SURGICAL HISTORY: COPD/ asthma Chronic oxygen-dependent respiratory failure. 2 L Chronic hypertension. Chronic back pain Status post appendectomy. Status post hernia repair. Status post rotator cuff repair SOCIAL HISTORY: Former smoker FAMILY HISTORY: Denies family history of COPD Alzheimer's. Cancer Diabetes ALLERGIES: Please see below. HOME MEDICATIONS: Please see below. PHYSICAL EXAMINATION: Vital Signs Date Time Temp Pulse Resp B/P (MAP) Pulse Ox O2 Delivery O2 Flow Rate FiO2 05/22/19 19:49 98.2 123 24 163/105 (124) 97 Room Air 05/22/19 20:53 3.0 GEN: well nourished / well developed/ NAD INTEGUMENT: He doesn't have facial plethora HEENT:NCAT / his lips are not lips cyanotic / NC in place / mucus membranes moist and pink / sclera anicteric CVS: RRR/ no lower extremity edema LUNGS: He is able to speak full sentences without stopping to take a breath / he is coughing / is using accessory muscles / there is decreased respiratory expansion/ he has decreased breath sounds bilaterally ABDOMEN: there are no masses or lesions / bowel sounds are present / the abdomen is tympanic on percussion, soft & not tender with palpation MSK/EXTREMITIES: finger nail clubbing/ range of motion intact in all 4 extremities / no scoliosis / no kyphosis NEURO: CN 2-12 are grossly intact / speech is not dysarthric / he doesn't have asterixis PSYCH: alert and oriented to person place and time/ able to understand and follow all commands Laboratory Tests 05/22/19 21:05 IMAGING: Chest xray appears unremarkable except for prominent pulm vasculature, the final read is pending. MICROBIOLOGY: Please see below. ASSESSMENT: is a 63 yr old M w a PMH of COPD, O2 dependence, & HTN who is admitted for management of acute COPD 2/2 influenza B. PLAN: 1. Acute COPD secondary to influenza B Plan: Airborne precautions / continuous pulse ox/ supplemental O2 // continuous pulse oximetry / aspiration precautions / Tamiflu/ Dunebs Q6H, levalbuterol Q4HP, Prednisone + PPI / refer to [facility] for repeat PFTs and Pulmonary Rehab when ready for d/c 2. Chronic oxygen-dependent respiratory failure - Plan: Continue supplemental oxygen 3. Chronic HTN - Plan: c/w home meds DVT Px Lovenox DISPO: home after more than 2 midnight's stay Laboratory Data CBC/BMP Laboratory Tests 05/22/19 21:05 Microbiology Microbiology 05/22/19 Blood Culture, Received Pending Home Medications Scheduled Atorvastatin Calcium (Atorvastatin Calcium) 20 Mg Tablet, 20 MG PO QHS Azithromycin (Azithromycin) 250 Mg Tablet, 250 MG PO DAILY Budesonide (Budesonide) 0.5 Mg/2 Ml Ampul.neb, 0.5 MG INH BID Carvedilol (Carvedilol) 12.5 Mg Tablet, 12.5 MG PO BID Dexlansoprazole (Dexilant) 60 Mg Cap.bp, 60 MG PO DAILY Fluticasone Propion/Salmeterol (Wixela 500-50 Inhub) 1 Each Blst.w.dev, 1 PUFF INH BID Furosemide (Furosemide) 80 Mg Tablet, 40 MG PO DAILY Latanoprost (Xalatan) 0.005% 2.5ML Drops, 1 DROP OU QHS Loratadine (Loratadine) 10 Mg Tablet, 10 MG PO DAILY Losartan Potassium (Losartan Potassium) 25 Mg Tablet, 25 MG PO BID Potassium Chloride (Potassium Chloride) 10 Meq Tab.er.prt, 10 MEQ PO BID Prednisone (Prednisone) 20 Mg Tablet, 30 MG PO DAILY Sertraline Hcl (Zoloft) 100 Mg Tablet, 200 MG PO DAILY Spironolactone (Spironolactone) 50 Mg Tablet, 50 MG PO DAILY Tiotropium [place] (Spiriva Respimat) 4 Gm Mist.inhal, 1 PUFF INH BID Triamcinolone Acetonide (Nasacort) 10.8 Ml [place], 2 SPRAYS NA QHS Scheduled PRN Albuterol Sulfate (Proair Hfa) 108 Mcg/Act Aer, 2 PUFFS INH Q4H PRN for SHORTNESS OF BREATH Aspirin (Aspirin) 325 Mg Tablet, 325 MG PO BID PRN for HEADACHE Ipratropium/Albuterol Sulfate (Iprat-Albut 0.5-3(2.5) mg/3 ml) 3 Ml Ampul.neb, 3 ML INH QID PRN for SHORTNESS OF BREATH Oxycodone HCl/Acetaminophen (Oxycodone-Acetaminophen 10-325) 1 Each Tablet, 1 TAB PO QID PRN for PAIN Miscellaneous Medications Metformin HCl (Metformin HCl) 500 Mg Tablet Allergies Coded Allergies: No Known Allergies (Verified , 01/30/19) A-FIB/CHADSVASC A-FIB History Current/History of A-Fib/PAF?: No Current PO Anticoag Therapy: No DARLING QUESADA MD May 23, 2019 00:37
[2019-05-23] MEDS ORDERED: MAALOX 30 ML SUSP *UDC PO PRN (01:15)
[2019-05-23] MEDS ORDERED: ACETAMINOPHEN TAB 650MG DOSE (2X325MG) PO PRN (01:15)
[2019-05-23] MEDS ORDERED: GLUCOSE 4 GM CHEW TABLET PO PRN (01:15)
[2019-05-23] MEDS ORDERED: DEXTROSE 50% 50 ML SYRINGE IV PRN (01:15)
[2019-05-23] MEDS ORDERED: GLUCAGON FOR INJ 1 MG VIAL (J1610) SC PRN (01:15)
[2019-05-23] MEDS ORDERED: ALBUTEROL SULFATE 2.5 MG/0.5 ML INH NEB SOLN NEB PRN (01:15)
[2019-05-23] MEDS ORDERED: IPRA0.00 INH (01:41)
[2019-05-23] MEDS ORDERED: NASA1SPR (01:41)
[2019-05-23] MEDS ORDERED: BUDE0.5S6 INH (01:41)
[2019-05-23] MEDS ORDERED: CARV12.5 PO (01:41)
[2019-05-23] MEDS ORDERED: AZIT-10 PO (01:41)
[2019-05-23] MEDS ORDERED: ZOLO100T PO (01:41)
[2019-05-23] MEDS ORDERED: PRED20TA PO (01:41)
[2019-05-23] MEDS ORDERED: DEXI60CA2 PO (01:41)
[2019-05-23] MEDS ORDERED: SPIR12.9 INH (01:41)
[2019-05-23] MEDS ORDERED: FLUT1BLS3 INH (01:41)
[2019-05-23] MEDS ORDERED: POTA10TA17 PO (01:41)
[2019-05-23] MEDS ORDERED: SPIR50TA4 PO (01:41)
[2019-05-23] MEDS ORDERED: ATOR1TAB21 PO (01:41)
[2019-05-23] MEDS ORDERED: XALA0.007 OU (01:41)
[2019-05-23] MEDS ORDERED: LORA-622 PO (01:41)
[2019-05-23] MEDS ORDERED: FURO80TA2 PO (01:41)
[2019-05-23] MEDS: IPRATROPIUM 0.5MG/ALBUTEROL 2.5MG INH SOL UD 3ML (DUONEB)(J7620) NEB SCH ×6 (02:00→20:00)
[2019-05-23] MEDS: DOCUSATE SODIUM 100 MG CAP PO SCH ×3 (05:29→21:24)
--- NOTE | 2019-05-23 06:01 | ECGEPIP ---
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
--- NOTE | 2019-05-23 07:49 | REP ---
The portable chest, 08:40 p.m., single AP view with the patient upright: Comparison is 05/07/2019. The lung farmer are clear. The cardiac size is normal. The iker, mediastinum, and skeletal structures are unremarkable. Impression: Negative portable chest. There is no interval change. Electronically Signed by Marcos Gaitan MD 05/23/2019 07:42 A
[2019-05-23] MEDS ORDERED: LEVALBUTEROL HFA 45MCG/ACT 15 GM INHALER INH PRN (08:00)
[2019-05-23] MEDS: ENOXAPARIN 40 MG/0.4 ML SYRINGE (J1650) SC SCH (08:35)
[2019-05-23] MEDS: OSELTAMIVIR PHOSPHATE 75 MG CAP (TAMIFLU) PO SCH (08:35)
[2019-05-23] MEDS: LORATADINE 10 MG TAB PO SCH (08:36)
[2019-05-23] MEDS: SPIRONOLACTONE 50 MG TAB PO SCH (08:36)
[2019-05-23] MEDS: SERTRALINE 100 MG TAB PO SCH (08:36)
[2019-05-23] MEDS: LOSARTAN 25 MG TAB PO SCH ×2 (08:36→21:25)
[2019-05-23] MEDS: FUROSEMIDE 40 MG TAB PO SCH (08:36)
[2019-05-23] MEDS: PANTOPRAZOLE 40MG TAB (PROTONIX) PO SCH (08:36)
[2019-05-23] MEDS: POTASSIUM CHLORIDE 10 MEQ SR TABLET PO SCH ×2 (08:36→21:24)
[2019-05-23] MEDS: CARVedilol 12.5 MG TAB PO SCH ×2 (08:37→21:25)
[2019-05-23] MEDS: HumaLOG INSULIN (NovoLOG) PER UNIT SC SCH ×4 (08:37→20:49)
[2019-05-23] MEDS: ADVAIR HFA 230/21MCG INHALER INH SCH ×2 (08:41→20:35)
[2019-05-23] MEDS: TIOTROPIUM INHALER/CAPSULE (SPIRIVA) INH SCH (08:41)
[2019-05-23] MEDS ORDERED: predniSONE 10 MG TAB PO SCH (09:00)
[2019-05-23] MEDS ORDERED: predniSONE 20 MG TAB PO SCH (09:00)
[2019-05-23] MEDS ORDERED: ADVAIR HFA 115/21MCG INHALER INH SCH (09:00)
[2019-05-23 09:18] LABS: HEMATOCRIT 33.1 % (42.0-52.0); HEMOGLOBIN 11.4 g/dl (13.5-17.5); LYMPH % 3.2 % (24.0-44.0); MEAN CORPUSCULAR HEMOGLOBIN 31.4 pg (27.0-33.0); MEAN CORPUSCULAR HGB CONC 34.4 g/dl (32.0-36.5); MEAN CORPUSCULAR VOLUME 91.2 fl (80.0-96.0); MONO # 0.3 10^3/uL (0.0-0.8); MONO % 5.5 % (0.0-5.0); NEUTROPHILS # 4.8 10^3/uL (1.5-8.5); NEUTROPHILS % 90.7 % (36.0-66.0); PLATELET COUNT, AUTOMATED 147 10^3/uL (150-450); RED BLOOD COUNT 3.63 10^6/uL (4.30-6.10); WHITE BLOOD COUNT 5.3 10^3/uL (4.0-10.0)
[2019-05-23 09:38] LABS: LYMPH # 0.2 10^3/uL (1.5-5.0)
[2019-05-23 09:40] LABS: BLOOD UREA NITROGEN 33 MG/DL (7-18); CALCIUM LEVEL 8.4 MG/DL (8.8-10.2); CARBON DIOXIDE LEVEL 27 MEQ/L (21-32); CHLORIDE LEVEL 104 MEQ/L (98-107); GLOMERULAR FILTRATION RATE > 60.0 (>49); GLUCOSE, FASTING 213 MG/DL (70-100); POTASSIUM SERUM 4.4 MEQ/L (3.5-5.1); SODIUM LEVEL 138 MEQ/L (136-145)
[2019-05-23 11:00] VITALS: O2SAT 95
[2019-05-23] MEDS ORDERED: FUROSEMIDE 40 MG/4 ML VIAL (J1940) IV ONE (13:00)
[2019-05-23 14:00] VITALS: BP 130/75
--- NOTE | 2019-05-23 14:36 | IPNPDOC ---
Text Note Date of Service The patient was seen on 05/23/19. NOTE Subjective: Patient is seen and examined at bedside in the emergency department this morning. He states he feels somewhat better. He is currently saturating 93-94% on his home level of oxygen via nasal cannula. He denies coughing or sputum production this morning. I did spend some time talking to the patient's business planner, Dr. Harrison, to clarify the patient's medical history. He does have severe COPD, and is chronically on oxygen (2 L via nasal cannula) at home as well as 10 mg of prednisone daily. He is on both Lasix and spironolactone for unspecified heart failure, has not had an echocardiogram in years. According to Dr. Harrison, the patient has been trying to get in with Dr. Joseph's office. Most of the time, when the patient gets dyspneic, it is because he has moderate fluid overload. We reviewed the patient's portable chest x-ray from yesterday together, over the phone, and agree that there is evidence of pulmonary vascular congestion in keep ing with heart failure. Objective: Vitals: See below General: Elderly male, lying flat in the stretcher in the ER. No acute distress. Pleasant and cooperative. HEENT: Mucous membranes are moist, no conjunctival pallor. No signs of thrush. Neck: Obese. JVD difficult to assess. Trachea midline Lungs: Diffuse inspiratory and expiratory wheezes with tight breath sounds. No overt rhonchi or rales. Accessory muscle use is present Heart: Faint heart sounds. Regular rate and rhythm; no appreciable murmurs, gallops, or rubs Abdomen: Obese, somewhat protuberant. Somewhat hypoactive bowel sounds, no obvious masses to palpation. No tenderness to palpation. Extremities: Mild, nonpitting ankle swelling bilaterally. Capillary refill is brisk, no signs of cyanosis. Neuro: Muscle strength 5 out of 5 throughout. Sensation intact throughout. Cranial nerves II through XII grossly intact. Skin: No obvious signs of cyanosis or anemia. No rashes or bruises. Assessment: 63-year-old male admitted for dyspnea secondary to influenza overnight. Signs of pulmonary venous congestion on chest x-ray indicating a degree of heart failure. Plan: 1. Influenza B. Continue with Tamiflu for 10 doses. Supportive care. Currently he is on his baseline oxygen at home. Continue with home COPD inhalers, as well as DuoNebs. 2. Heart failure, unspecified. Does not look to be decompensated on physical exam this morning, though he did present to the emergency department with dyspnea (which has improved). Per Dr. Harrison, he has not had an echocardiogram done in years. Currently on Lasix and spironolactone, which would indicate NYHA class III or IV heart failure. Echocardiogram ordered. Extra dose of IV Lasix given due to pulmonary congestion seen on chest x-ray. 2 g sodium diet. ProBNP not ordered as it would not change person and the patient is not decompensated on exam this morning. 3. COPD. This does not appear to be in acute exacerbation, given clinical picture. Continue hospital equivalence of outpatient COPD inhalers. On home oxygen 2 L via nasal cannula for chronic respiratory failure. 4. Acute kidney injury. Baseline creatinine appears to be 0.9, and on admission it was 1.38 (>0.3 rise in baseline). Most likely secondary to Influenza B. Creatinine this morning is 1.10, continue to monitor. 5. Hyperglycemia, etiology unknown. While he certainly could have type 2 diabetes mellitus, he is on chronic prednisone which could cause a chronically hyperglycemic state (A1c in this setting is relatively nonspecific, last one on 05/07/19 was 8.8). While he is on metformin outpatient, inpatient he would probably benefit from basal insulin seeing as he has recently gotten higher doses of steroids. In addition to sliding scale will add Levemir 10 units daily at bedtime. 6. Hypertension. Blood pressure control adequate at this time. On home carvedilol and losartan. Does also have Lasix and spironolactone. Continue to monitor. 7. Hyperlipidemia. Continue home atorvastatin 8. GERD. Continue home PPI 9. Depression. Continue home Zoloft 10. Chronic pain. Continue home Percocet DVT prophylaxis: Lovenox. Disposition: Potential discharge in 24-48 hours, pending echocardiogram results and clinical improvement Cheyanne HUFFMAN, I+O Cheyanne HUFFMAN, I+O Laboratory Tests 05/22/19 21:05 05/23/19 08:58 Vital Signs Date Time Temp Pulse Resp B/P (MAP) Pulse Ox O2 Delivery O2 Flow Rate FiO2 05/23/19 11:00 95 Nasal Cannula 2.0 05/23/19 09:45 98 22 149/71 (97) 05/23/19 07:30 98.3 GME ATTESTATION GME ATTESTATION My faculty preceptor for this patient encounter was physically present during the encounter and was fully available. All aspects of the patient interview, examination, medical decision making process, and medical care plan development were reviewed and approved by the faculty preceptor. The faculty preceptor is aware and concurs with the plan as stated in the body of this note and will attest to such by his/her cosignature. DARRION SARMIENTO D.O. May 23, 2019 14:36
--- NOTE | 2019-05-23 17:30 | ECHO ---
DATE OF PROCEDURE: 05/23/2019 REFERRING PHYSICIAN: Cheyenne Barbosa MD INDICATION: Dyspnea. HEIGHT: 158 WEIGHT: 79 kg Dimensions IVS: 1.1 LV: 3.7 LVPW: 1.0 LA: 2.5 Aorta: 3.8 IVC: 1.5 Mitral E wave velocity: 56, A wave: 74 E prime septal: 7.1 E prime lateral: 10.9 FINDINGS The study is of poor technical quality with very limited visualization. There are virtually absent parasternal and short axis views. Apical views are fair. The patient is in sinus rhythm. Left ventricle is normal size and has grossly preserved left ventricle systolic function. I estimate ejection fraction (EF) around 65%. I certainly cannot rule out subtle wall motion abnormalities. Right ventricle also appears grossly normal. Both atria appear grossly normal. Aortic valve is minimally sclerotic but seems to have preserved mobility. Mitral and tricuspid valves also appear normal. Pulmonic valve was not seen. Small amount of pericardial fat pad is noted. Inferior vena cava was reasonably well seen and appears normal. Aortic root is normal. Aortic arch and abdominal aorta were not visualized. Doppler interrogation reveals no significant aortic stenosis or insufficiency. Limited evaluation of mitral and tricuspid valves appear normal. Mitral inflow pattern and tissue Doppler imaging of mitral annulus reveal grade 1 diastolic dysfunction. CONCLUSIONS: 1. Study is of poor technical quality, the patient is in sinus rhythm. 2. Normal left ventricle (LV) size with grossly preserved LV systolic function and grade 1 diastolic dysfunction. 3. No significant valvular disease based on limited views. 4. Likely normal central venous pressure, unable to estimate pulmonary artery pressure. 5. Small amount of pericardial fat pad.
[2019-05-23 18:00] VITALS: BP 124/65
[2019-05-23 21:00] VITALS: O2SAT 97
[2019-05-23] MEDS: LEVEMIR (INSULIN DETEMIR) 1 UNITS/0.01ML SC SCH (21:00)
[2019-05-23] MEDS: LATANOPROST 0.005% OPHTH SOLN 2.5 ML OU SCH (21:24)
[2019-05-23] MEDS: ATORVASTATIN 20 MG TAB PO SCH (21:25)
[2019-05-23 22:00] VITALS: BP 139/90
[2019-05-24] MEDS: ACETAMINOPHEN 325 MG TAB PO PRN ×2 (00:28→18:51)
[2019-05-24] MEDS: oxyCODONE 5MG TAB PO PRN ×2 (00:28→18:51)
[2019-05-24] MEDS: IPRATROPIUM 0.5MG/ALBUTEROL 2.5MG INH SOL UD 3ML (DUONEB)(J7620) NEB SCH ×5 (01:30→19:41)
[2019-05-24 02:00] VITALS: BP_SYST 120; BP_SYST 92; BP_DIAS 68
[2019-05-24 06:00] VITALS: BP 125/85
[2019-05-24 06:06] LABS: HEMATOCRIT 32.3 % (42.0-52.0); HEMOGLOBIN 11.2 g/dl (13.5-17.5); MEAN CORPUSCULAR HEMOGLOBIN 31.7 pg (27.0-33.0); MEAN CORPUSCULAR HGB CONC 34.7 g/dl (32.0-36.5); MEAN CORPUSCULAR VOLUME 91.5 fl (80.0-96.0); PLATELET COUNT, AUTOMATED 148 10^3/uL (150-450); RED BLOOD COUNT 3.53 10^6/uL (4.30-6.10); WHITE BLOOD COUNT 6.9 10^3/uL (4.0-10.0)
[2019-05-24 06:26] LABS: BLOOD UREA NITROGEN 41 MG/DL (7-18); CALCIUM LEVEL 8.1 MG/DL (8.8-10.2); CARBON DIOXIDE LEVEL 28 MEQ/L (21-32); CHLORIDE LEVEL 104 MEQ/L (98-107); CREATININE FOR GFR 1.28 MG/DL (0.70-1.30); GLOMERULAR FILTRATION RATE > 60.0 (>49); GLUCOSE, FASTING 115 MG/DL (70-100); MAGNESIUM LEVEL 2.1 MG/DL (1.8-2.4); POTASSIUM SERUM 3.8 MEQ/L (3.5-5.1); SODIUM LEVEL 139 MEQ/L (136-145)
[2019-05-24] MEDS: TIOTROPIUM INHALER/CAPSULE (SPIRIVA) INH SCH (07:39)
[2019-05-24] MEDS: ADVAIR HFA 230/21MCG INHALER INH SCH ×2 (07:39→19:41)
[2019-05-24] MEDS: HumaLOG INSULIN (NovoLOG) PER UNIT SC SCH ×4 (08:34→20:34)
[2019-05-24] MEDS: LORATADINE 10 MG TAB PO SCH (08:35)
[2019-05-24] MEDS: ENOXAPARIN 40 MG/0.4 ML SYRINGE (J1650) SC SCH (08:35)
[2019-05-24] MEDS: POTASSIUM CHLORIDE 10 MEQ SR TABLET PO SCH ×2 (08:35→21:13)
[2019-05-24] MEDS: OSELTAMIVIR PHOSPHATE 75 MG CAP (TAMIFLU) PO SCH (08:35)
[2019-05-24] MEDS: SPIRONOLACTONE 50 MG TAB PO SCH (08:35)
[2019-05-24] MEDS: PANTOPRAZOLE 40MG TAB (PROTONIX) PO SCH (08:35)
[2019-05-24] MEDS: DOCUSATE SODIUM 100 MG CAP PO SCH ×2 (08:35→21:13)
[2019-05-24] MEDS: FUROSEMIDE 40 MG TAB PO SCH (08:35)
[2019-05-24] MEDS: CARVedilol 12.5 MG TAB PO SCH ×2 (08:36→21:14)
[2019-05-24] MEDS: predniSONE 10 MG TAB PO SCH (08:36)
[2019-05-24] MEDS: LOSARTAN 25 MG TAB PO SCH ×2 (08:36→21:14)
[2019-05-24] MEDS: SERTRALINE 100 MG TAB PO SCH (08:36)
[2019-05-24 10:00] VITALS: BP 125/90
--- NOTE | 2019-05-24 15:08 | IPNPDOC ---
Subjective Date Seen The patient was seen on 05/24/19. Subjective Chief Complaint/HPI Beau is better, not fully back to his baseline. He diuresed well following IV lasix administration yesterday. Objective Physical Examination General Exam: Positive: Alert, No Acute Distress, Other (on 2 lpm home oxygen, no cyanosis, some labored breathing with moving in bed) Eye Exam: Positive: PERRLA, EOMI Chest Exam: Positive: Clear to auscultation; Negative: Rales, Rhonchi, Wheezing Heart Exam: Positive: Rate Normal, Normal S1, Normal S2; Negative: Murmurs Extremity Exam: Negative: Clubbing, Cyanosis Skin Exam: Negative: Rash Psych Exam: Positive: Mental status NL Assessment /Plan Assessment # Acute Influenza B infection # Acute on chronic diastolic CHF # COPD chronic # ANGELO - resolved # Poorly controlled DM2 (A1c 8.8%) Plan: - Day # 05/01 tamiflu - home in am - oral lasix has been resumed - Glucose controlled Plan/VTE VTE Prophylaxis Ordered?: Yes (lovenox) VTE Exclusion Mechanical Proph: N/A:VTE Prophy Ordered VTE Exclusion Pharmacological: N/A:VTE Prophy Ordered VS, I&O, 24H, Fishbone Vital Signs/I&O Vital Signs Date Time Temp Pulse Resp B/P (MAP) Pulse Ox O2 Delivery O2 Flow Rate FiO2 05/24/19 10:00 98.1 82 19 125/90 (102) 92 Nasal Cannula 2.0 I&O- Last 24 Hours up to 6 AM 05/24/19 06:00 Intake Total 3016 ml Output Total 2000 ml Balance 1016 ml Laboratory Data 24H LABS Laboratory Tests 2 05/23/19 17:25: Bedside Glucose (Misc Panel) 164H 05/23/19 20:47: Bedside Glucose (Misc Panel) 143H 05/24/19 05:33: Nucleated Red Blood Cells % (auto) 0.0, Anion Gap 7L, Glomerular Filtration Rate > 60.0, Calcium Level 8.1L, Magnesium Level 2.1 05/24/19 11:16: Bedside Glucose (Misc Panel) 149H CBC/BMP Laboratory Tests 05/24/19 05:33 Microbiology Microbiology 05/22/19 Blood Culture - Preliminary, Resulted No growth after 24 hours . All specim... ZULMA ROGER MD May 24, 2019 15:08
[2019-05-24 16:00] VITALS: BP 127/85
[2019-05-24] MEDS: CEPACOL LOZENGE PO PRN ×2 (17:47→18:51)
[2019-05-24] MEDS: LEVEMIR (INSULIN DETEMIR) 1 UNITS/0.01ML SC SCH (20:56)
[2019-05-24 21:00] VITALS: O2SAT 95
[2019-05-24] MEDS: ATORVASTATIN 20 MG TAB PO SCH (21:13)
[2019-05-24] MEDS: LATANOPROST 0.005% OPHTH SOLN 2.5 ML OU SCH (21:13)
[2019-05-24 22:00] VITALS: BP 123/71
[2019-05-25] VITALS (7 sets, daily range): BP systolic 112–141; BP diastolic 78–85; O2SAT 95
[2019-05-25] MEDS: IPRATROPIUM 0.5MG/ALBUTEROL 2.5MG INH SOL UD 3ML (DUONEB)(J7620) NEB SCH ×5 (01:00→19:44)
[2019-05-25] MEDS: HumaLOG INSULIN (NovoLOG) PER UNIT SC SCH ×4 (07:30→22:15)
[2019-05-25] MEDS: ADVAIR HFA 230/21MCG INHALER INH SCH ×2 (07:57→19:44)
[2019-05-25] MEDS: TIOTROPIUM INHALER/CAPSULE (SPIRIVA) INH SCH (07:57)
[2019-05-25] MEDS: DOCUSATE SODIUM 100 MG CAP PO SCH ×2 (09:36→22:33)
[2019-05-25] MEDS: PANTOPRAZOLE 40MG TAB (PROTONIX) PO SCH (09:36)
[2019-05-25] MEDS: SPIRONOLACTONE 50 MG TAB PO SCH (09:36)
[2019-05-25] MEDS: LOSARTAN 25 MG TAB PO SCH ×2 (09:37→22:34)
[2019-05-25] MEDS: POTASSIUM CHLORIDE 10 MEQ SR TABLET PO SCH ×2 (09:37→22:33)
[2019-05-25] MEDS: CARVedilol 12.5 MG TAB PO SCH ×2 (09:37→22:33)
[2019-05-25] MEDS: OSELTAMIVIR PHOSPHATE 75 MG CAP (TAMIFLU) PO SCH (09:37)
[2019-05-25] MEDS: LORATADINE 10 MG TAB PO SCH (09:37)
[2019-05-25] MEDS: predniSONE 10 MG TAB PO SCH (09:37)
[2019-05-25] MEDS: ASPIRIN 325 MG TAB PO PRN (09:37)
--- NOTE | 2019-05-25 09:37 | IPNPDOC ---
Subjective Date Seen The patient was seen on 05/25/19. Subjective Chief Complaint/HPI Feels winded with activity. No wheezing. Objective Physical Examination General Exam: Positive: Alert, No Acute Distress, Other (on 2 lpm home oxygen, no cyanosis, some labored breathing with moving in bed) Eye Exam: Positive: PERRLA, EOMI ENT Exam: Positive: Mucous membr. moist/pink (no thrush) Chest Exam: Positive: Clear to auscultation; Negative: Rales, Rhonchi, Wheezing Heart Exam: Positive: Rate Normal, Normal S1, Normal S2; Negative: Murmurs Abdomen Exam: Positive: Normal bowel sounds Extremity Exam: Negative: Clubbing, Cyanosis Skin Exam: Negative: Rash Neuro Exam: Positive: Normal Speech, Normal Tone Psych Exam: Positive: Mental status NL Assessment /Plan Assessment # Acute Influenza B infection # Acute on chronic diastolic CHF # COPD chronic # ANGELO - resolved # Poorly controlled DM2 (A1c 8.8%) Plan: - Day # 3/5 tamiflu - home today Plan/VTE VTE Prophylaxis Ordered?: Yes (lovenox) VTE Exclusion Mechanical Proph: N/A:VTE Prophy Ordered VTE Exclusion Pharmacological: N/A:VTE Prophy Ordered VS, I&O, 24H, Fishbone Vital Signs/I&O Vital Signs Date Time Temp Pulse Resp B/P (MAP) Pulse Ox O2 Delivery O2 Flow Rate FiO2 05/25/19 06:00 99.2 84 17 127/82 (97) 94 Nasal Cannula 2.0 I&O- Last 24 Hours up to 6 AM 05/25/19 06:00 Intake Total 1860 ml Output Total 1750 ml Balance 110 ml Laboratory Data 24H LABS Laboratory Tests 2 05/24/19 11:16: Bedside Glucose (Misc Panel) 149H 05/24/19 16:25: Bedside Glucose (Misc Panel) 158H 05/24/19 20:20: Bedside Glucose (Misc Panel) 95 05/25/19 06:21: Bedside Glucose (Misc Panel) 97 Microbiology Microbiology 05/22/19 Blood Culture - Preliminary, Resulted No Growth after 48 hours. All Specime... ZULMA ROGER MD May 25, 2019 09:37
[2019-05-25] MEDS: ENOXAPARIN 40 MG/0.4 ML SYRINGE (J1650) SC SCH (09:38)
[2019-05-25] MEDS: FUROSEMIDE 40 MG TAB PO SCH (09:38)
[2019-05-25] MEDS: SERTRALINE 100 MG TAB PO SCH (09:38)
[2019-05-25] MEDS ORDERED: OSEL75CA2 PO (09:42)
[2019-05-25] MEDS ORDERED: PRED10TA2 PO (09:42)
[2019-05-25] MEDS: MIRALAX *UNIT DOSE* 17GM PACKET PO PRN (09:47)
[2019-05-25] MEDS: MOM 30ML SUSPENSION UDC PO PRN (09:47)
[2019-05-25] MEDS: ATORVASTATIN 20 MG TAB PO SCH (22:33)
[2019-05-25] MEDS: LATANOPROST 0.005% OPHTH SOLN 2.5 ML OU SCH (22:34)
[2019-05-25] MEDS: LEVEMIR (INSULIN DETEMIR) 1 UNITS/0.01ML SC SCH (22:34)
[2019-05-26 02:00] VITALS: BP 128/82
[2019-05-26] MEDS: IPRATROPIUM 0.5MG/ALBUTEROL 2.5MG INH SOL UD 3ML (DUONEB)(J7620) NEB SCH ×3 (02:10→14:32)
[2019-05-26 06:00] VITALS: BP 134/77
[2019-05-26] MEDS: HumaLOG INSULIN (NovoLOG) PER UNIT SC SCH ×2 (07:28→13:30)
[2019-05-26] MEDS: ADVAIR HFA 230/21MCG INHALER INH SCH (07:33)
[2019-05-26] MEDS: TIOTROPIUM INHALER/CAPSULE (SPIRIVA) INH SCH (07:33)
[2019-05-26] MEDS: ENOXAPARIN 40 MG/0.4 ML SYRINGE (J1650) SC SCH (08:35)
[2019-05-26] MEDS: MOM 30ML SUSPENSION UDC PO PRN (08:35)
[2019-05-26] MEDS: ASPIRIN 325 MG TAB PO PRN (08:35)
[2019-05-26] MEDS: MIRALAX *UNIT DOSE* 17GM PACKET PO PRN (08:35)
[2019-05-26] MEDS: predniSONE 10 MG TAB PO SCH (08:35)
[2019-05-26] MEDS: FUROSEMIDE 40 MG TAB PO SCH (08:35)
[2019-05-26 08:36] VITALS: BP 117/75
[2019-05-26] MEDS: LOSARTAN 25 MG TAB PO SCH (08:36)
[2019-05-26] MEDS: OSELTAMIVIR PHOSPHATE 75 MG CAP (TAMIFLU) PO SCH (08:36)
[2019-05-26] MEDS: SERTRALINE 100 MG TAB PO SCH (08:36)
[2019-05-26] MEDS: CARVedilol 12.5 MG TAB PO SCH (08:36)
[2019-05-26] MEDS: PANTOPRAZOLE 40MG TAB (PROTONIX) PO SCH (08:36)
[2019-05-26] MEDS: DOCUSATE SODIUM 100 MG CAP PO SCH (08:36)
[2019-05-26] MEDS: LORATADINE 10 MG TAB PO SCH (08:36)
[2019-05-26] MEDS: SPIRONOLACTONE 50 MG TAB PO SCH (08:37)
[2019-05-26] MEDS: POTASSIUM CHLORIDE 10 MEQ SR TABLET PO SCH (08:37)
[2019-05-26 10:00] VITALS: BP 136/67
--- NOTE | 2019-05-26 10:20 | IPNPDOC ---
Subjective Date Seen The patient was seen on 05/26/19. Subjective Chief Complaint/HPI Beau feels stronger today and is willing to go home Objective Physical Examination General Exam: Positive: Alert, No Acute Distress, Other (on 2 lpm home oxygen, no cyanosis, some labored breathing with moving in bed) Eye Exam: Positive: PERRLA, EOMI ENT Exam: Positive: Mucous membr. moist/pink (no thrush) Chest Exam: Positive: Clear to auscultation; Negative: Rales, Rhonchi, Wheezing Heart Exam: Positive: Rate Normal, Normal S1, Normal S2; Negative: Murmurs Abdomen Exam: Positive: Normal bowel sounds Extremity Exam: Negative: Clubbing, Cyanosis Skin Exam: Negative: Rash Neuro Exam: Positive: Normal Speech, Normal Tone Psych Exam: Positive: Mental status NL Assessment /Plan Assessment Acute Influenza B infection # Acute on chronic diastolic CHF # COPD chronic # ANGELO - resolved # Poorly controlled DM2 (A1c 8.8%) Plan: - home today - complete tamiflu 5 day course - f/u with pcp in 1 week Plan/VTE VTE Prophylaxis Ordered?: Yes (lovenox) VTE Exclusion Mechanical Proph: N/A:VTE Prophy Ordered VTE Exclusion Pharmacological: N/A:VTE Prophy Ordered VS, I&O, 24H, Fishbone Vital Signs/I&O Vital Signs Date Time Temp Pulse Resp B/P (MAP) Pulse Ox O2 Delivery O2 Flow Rate FiO2 05/26/19 08:36 89 117/75 05/26/19 06:00 97.1 18 93 Nasal Cannula 2.0 I&O- Last 24 Hours up to 6 AM 05/26/19 06:00 Intake Total 1380 ml Output Total 400 ml Balance 980 ml Laboratory Data 24H LABS Laboratory Tests 2 05/25/19 11:24: Bedside Glucose (Misc Panel) 144H 05/25/19 16:50: Bedside Glucose (Misc Panel) 128H 05/25/19 20:52: Bedside Glucose (Misc Panel) 154H 05/26/19 05:52: Bedside Glucose (Misc Panel) 104 Microbiology Microbiology 05/22/19 Blood Culture - Preliminary, Resulted No Growth after 72 hours. All specime... ZULMA ROGER MD May 26, 2019 10:20
[2019-05-26 14:00] VITALS: BP 129/82
--- NOTE | 2019-05-29 14:20 | DSES ---
DATE OF ADMISSION: 05/23/2019 DATE OF DISCHARGE: 05/26/2019 DISCHARGE DIAGNOSES: 1. Acute influenza B, upper respiratory tract infection. 2. Acute on chronic diastolic congestive heart failure. 3. Chronic obstructive pulmonary disease (COPD) with exacerbation. 4. Acute kidney injury resolved. 5. Poorly controlled diabetes mellitus type 2 with hypoglycemia. PROCEDURE PERFORMED DURING THIS HOSPITALIZATION: None. CONSULTANTS ON THE CASE: None. DISPOSITION: Patient was discharged home in stable condition. PENDING LABS AT DISCHARGE: None. DISCHARGE INSTRUCTIONS: Patient is instructed to followup with his primary care provider (PCP) in 1 week's time. He is to complete his prescribed course of Tamiflu. CONDITION ON DISCHARGE: Improved from admission. RELEVANT LABS: White count 6.9, hemoglobin 11.2, hematocrit 32.3, platelet counts 148,000. Sodium 139, potassium 3.8, chloride 104, bicarbonate 28, BUN 41, creatinine 1.28, glucose 115, calcium 8.1, magnesium 2.1. Influenza toxin assay showed positivity for influenza B. Blood cultures times 5 days showed no growth. IMAGING STUDIES OBTAINED DURING HOSPITAL STAY: Chest x-ray one view which showed negative portable chest without any interval change when compared to previous x-ray. DISCHARGE MEDICATIONS: - Tamiflu 75 mg daily for the next 3 days The remainder of the patient's home medications are unchanged from admission. He is advised to resume them upon discharge. HOSPITAL COURSE: Mr. Hernández is a 63-year-old gentleman who presents to the hospital with worsening complaints of shortness of breath. Evaluation in the emergency department found him to be influenza B positive. He was started on Tamiflu and admitted to the hospitalist service. The patient was not felt to have chronic obstructive pulmonary disease (COPD) exacerbation. Therefore, he was just maintained on his chronic prednisone dose of 10 mg by mouth daily. There was a question of whether he could have a possible acute on chronic diastolic congestive heart failure. He was treated with IV Lasix with no significant change in his respiratory status. Clinically, the patient felt weak from his acute influenza infection and needed a few days to recuperate in the hospital before discharge. On the day of discharge, patient is afebrile. He is feeling stronger and will be discharged today. Followup with his PCP. Total of 30 minute spent in completing all discharge paperwork.
== END 2019-05-26 15:30 | disposition home or self-care (01) | DRG 193 ==
LOC: M ED 19:48 → M ED INP 05-23 00:34 → ENRESERVDT 05-23 09:33 → ENRESERVTM 05-23 09:33 → M MSPAV 05-23 10:05
PROVIDERS: ADMIT Internal Medicine; ATTEND Internal Medicine
DX: J10.1 Influenza due to other identified influenza virus with other respiratory manifestations (principal); I50.33 Acute on chronic diastolic (congestive) heart failure; J96.10 Chronic respiratory failure, unspecified whether with hypoxia or hypercapnia; N17.9 Acute kidney failure, unspecified; J44.1 Chronic obstructive pulmonary disease with (acute) exacerbation; E11.65 Type 2 diabetes mellitus with hyperglycemia; Z99.81 Dependence on supplemental oxygen; I11.0 Hypertensive heart disease with heart failure; Z87.891 Personal history of nicotine dependence; M54.5 Low back pain; Z79.899 Other long term (current) drug therapy; Z79.82 Long term (current) use of aspirin; K21.9 Gastro-esophageal reflux disease without esophagitis; G89.29 Other chronic pain; E78.5 Hyperlipidemia, unspecified; Z79.52 Long term (current) use of systemic steroids

== ENCOUNTER → 2020-04-28 | Outpatient (CLI) | payer MEDICAID, MEDICARE ==
[~2020-04-28] MED LIST changes: -AMLO10TA5 PO; +AMLO1TAB25 PO; +ATOR1TAB21; +ATOR1TAB21 PO; +AZIT-10 PO; +AZIT-12; +BUDE0.5S6 INH; +CARV12.5 PO; +DEXI60CA2 PO; +FLUT1BLS3 INH; +FURO80TA2; +FURO80TA2 PO; +GLIP5TAB8; +IPRA0.00 INH; +LORA-622 PO; +METF-839; +NASA1SPR; +OSEL75CA2 PO; +PANT40TA29 PO; -PANT40TA3 PO; +POTA10TA17; +POTA10TA17 PO; +PRED20TA PO; +SERT-138; +SPIR12.9 INH; +SPIR50TA4; +SPIR50TA4 PO; +VITA100065 PO; +XALA0.007 OU; -[UNRECOGNIZED DRUG - CODE] PO
--- NOTE | 2020-04-28 20:01 | REPVR ---
PROCEDURE INFORMATION: Exam: MR Thoracic Spine Without Contrast Exam date and time: 04/28/2020 6:11 PM Age: 64 years old Clinical indication: Condition or disease; Disc degneration; Thoracolumbar; Without myelopathy or radiculopathy; Additional info: Other inervertebral disc degeneration, lumbar region TECHNIQUE: Imaging protocol: Multiplanar magnetic resonance images of the thoracic spine without contrast. COMPARISON: No relevant prior studies available. FINDINGS: Acute mild compression fracture of the superior endplate of T12. Potential minimal compression deformity of the superior endplate of T11. Chronic mild compression deformities of the superior endplates of T9, T8, T7, T5, T4, and T3. Remaining thoracic vertebral body heights are intact. Heterogeneous areas of fatty marrow signal. Multilevel degenerative disc height loss. Multilevel small posterior disc protrusions. No cord compression. No abnormal cord signal. Thoracic kyphosis is preserved. Soft tissues are unremarkable. IMPRESSION: 1. Acute mild compression fracture of the superior endplate of T12. 2. Potential minimal compression deformity of the superior endplate of T11. 3. Chronic findings, as above. Please refer to MRI lumbar spine for findings in the lumbar spine. Electronically signed by: Myles Flaherty On 04/28/2020 20:01:00 PM
--- NOTE | 2020-04-28 20:05 | REPVR ---
PROCEDURE INFORMATION: Exam: MR Lumbar Spine Without Contrast. Exam date and time: 04/28/2020 6:11 PM Age: 64 years old Clinical indication: Condition or disease; Disc degeneration; Thoracolumbar region TECHNIQUE: Imaging protocol: Multiplanar magnetic resonance images of the lumbar spine without intravenous contrast. COMPARISON: MRI-Spine, L.S. without con 07/15/2014 2:47 PM FINDINGS: Acute mild compression fractures of the superior endplates of L1 and L2. Remaining lumbar vertebral body heights are intact. Heterogeneous areas of fatty marrow signal. Conus medullaris terminates at the L1-L2 level. Paravertebral soft tissues are unremarkable. L1-L2: No significant canal or foraminal narrowing. L2-L3: No significant canal or foraminal narrowing. L3-L4: Broad-based disc bulge and facet hypertrophy causes moderate canal narrowing with crowding of the cauda equina. Severe right and moderate left foraminal narrowing.. L4-L5: Broad-based disc bulge and facet hypertrophy causes mild canal narrowing and moderate bilateral foraminal narrowing. L5-S1: Broad-based disc bulge and facet hypertrophy causes mild canal narrowing and moderate right and severe left foraminal narrowing. IMPRESSION: 1. Acute mild compression fractures of the superior endplates of L1 and L2. 2. Chronic findings in the lumbar spine, as above Please refer to MRI thoracic spine for findings in the thoracic spine. Electronically signed by: Myles Flaherty On 04/28/2020 20:05:03 PM
== END ==
LOC: M RAD 16:28
PROVIDERS: ATTEND Physician Assistant
DX: M51.36 Other intervertebral disc degeneration, lumbar region (principal); M51.26 Other intervertebral disc displacement, lumbar region; S32.010A Wedge compression fracture of first lumbar vertebra, initial encounter for closed fracture; S32.020A Wedge compression fracture of second lumbar vertebra, initial encounter for closed fracture; X58.XXXA Exposure to other specified factors, initial encounter; Y92.9 Unspecified place or not applicable

== ENCOUNTER → 2020-06-26 | Outpatient (CLI) | payer MEDICARE ==
--- NOTE | 2020-06-26 14:57 | REP ---
INDICATION: HYDROCELE. COMPARISON: 04/19/2019 TECHNIQUE: Multiple sonographic images of the scrotum including Doppler ultrasound. Patient has known bilateral hydroceles. Patient reportedly underwent hydrocele resection in 2019 and currently complains of increased left side scrotal swelling. FINDINGS: The right testis measures 4.0 x 2.6 x 3.3 cm. Non left testis measures 4.5 x 3.6 x 2.9 cm. The testes are normal size. There is vascular flow in both testes with Doppler resistive index in the parenchymal arteries of the right testis measuring 0.60 and left testis 0.57. There are no testicular masses or cysts. There is a 4 mm right tunica vaginalis cyst, of no clinical significance. The right hydrocele appears slightly smaller than on the previous study. The right epididymal head is normal size measuring 10.4 mm. There is no epididymal head cyst. There is a large left hydrocele that appears somewhat larger than on the prior study. The large left hydrocele obscures the left epididymis. IMPRESSION: The right hydrocele appears slightly smaller than on the previous study. The left hydrocele appears slightly larger than on the prior study. <Electronically signed by Marcos Gaitan > 06/26/20 [id number]
== END ==
LOC: M RAD 12:15
PROVIDERS: ATTEND Nurse Practitioner Women's Health
DX: N43.2 Other hydrocele (principal); N50.82 Scrotal pain

== ENCOUNTER → 2020-07-03 | Outpatient (CLI) | payer MEDICARE ==
[2020-07-03 12:49] LABS: BASO % 0.2 % (0.0-1.0); EOS % 0.2 % (0.0-3.0); HEMOGLOBIN 14.8 g/dl (13.5-17.5); LYMPH # 0.7 10^3/uL (1.5-5.0); LYMPH % 6.7 % (24.0-44.0); MEAN CORPUSCULAR HEMOGLOBIN 31.8 pg (27.0-33.0); MEAN CORPUSCULAR HGB CONC 35.2 g/dl (32.0-36.5); MEAN CORPUSCULAR VOLUME 90.3 fl (80.0-96.0); MONO # 0.5 10^3/uL (0.0-0.8); MONO % 4.9 % (2.0-8.0); NEUTROPHILS # 8.7 10^3/uL (1.5-8.5); NEUTROPHILS % 87.5 % (36.0-66.0); PLATELET COUNT, AUTOMATED 154 10^3/uL (150-450); RED BLOOD COUNT 4.65 10^6/uL (4.30-6.10); WHITE BLOOD COUNT 9.9 10^3/uL (4.0-10.0)
[2020-07-03 12:53] LABS: APPEARANCE, URINE CLEAR (CLEAR); BACTERIA, URINE AUTO NEGATIVE (NEGATIVE); BILIRUBIN, URINE AUTO NEGATIVE (NEGATIVE); BLOOD, URINE BLOOD 1+ (NEGATIVE); COLOR, URINE YELLOW (YELLOW); GLUCOSE, URINE (UA) AUTO NEGATIVE (NEGATIVE); KETONE, URINE AUTO NEGATIVE (NEGATIVE); LEUKOCYTE ESTERASE, URINE AUTO NEGATIVE (NEGATIVE); MUCUS, URINE SMALL (NEGATIVE); NITRITE, URINE AUTO NEGATIVE (NEGATIVE); PROTEIN, URINE AUTO NEGATIVE (NEGATIVE); RBC, URINE AUTO 0 /HPF (0-3); SPECIFIC GRAVITY URINE AUTO 1.024 (1.002-1.035); SQUAMOUS EPITHELIAL CELL UR AU 0 /HPF (0-6); UROBILINOGEN, URINE AUTO 0.2 mg/dL (0.0-2.0); WBC, URINE AUTO 0 /HPF (0-3)
--- NOTE | 2020-07-03 12:54 | REP ---
INDICATION: PRE OP LAB 1ST EKG 2ND XR 3RD. COMPARISON: PA and lateral chest dated 04/17/2019 and PA and lateral chest dated 05/07/2019, and portable chest dated 05/22/2019. TECHNIQUE: PA and lateral chest. FINDINGS: There is a small focal zone of atelectasis peripherally in the left mid lung. The remainder of the lung farmer are clear. There are no pleural effusions. Cardiac size is upper normal. The iker, mediastinum, and skeletal structures are unremarkable. IMPRESSION: Small focal zone of atelectasis in the left lung. Otherwise, negative PA and lateral chest. <Electronically signed by Marcos Gaitan > 07/03/20 [id number]
[2020-07-03 12:59] LABS: INR 0.93; PROTHROMBIN TIME 12.7 SECONDS (12.5-14.3)
[2020-07-03 13:29] LABS: ALBUMIN 3.9 GM/DL (3.2-5.2); ALT/SGPT 27 U/L (12-78); BILIRUBIN,TOTAL 0.6 MG/DL (0.2-1.0); BLOOD UREA NITROGEN 25 MG/DL (7-18); CALCIUM LEVEL 9.1 MG/DL (8.8-10.2); CARBON DIOXIDE LEVEL 31 MEQ/L (21-32); CHLORIDE LEVEL 101 MEQ/L (98-107); CHOLESTEROL LEVEL 188 MG/DL (<200); CHOLESTEROL RISK RATIO 3.298 (<5); CREATININE FOR GFR 1.13 MG/DL (0.70-1.30); FREE T4 1.01 NG/DL (0.76-1.46); GLOMERULAR FILTRATION RATE > 60.0 (>49); GLUCOSE, FASTING 203 MG/DL (70-100); HDL CHOLESTEROL 57 MG/DL (>40); LDL CHOLESTEROL 95 MG/DL (<100); NON-HDL-C 131 MG/DL; POTASSIUM SERUM 3.7 MEQ/L (3.5-5.1); PROSTATIC SPECIFIC AG MONITOR 0.76 NG/ML (< 4.00); SODIUM LEVEL 138 MEQ/L (136-145); THYROID STIMULATING HORMONE 0.293 uIU/ML (0.358-3.740); TOTAL PROTEIN 6.8 GM/DL (6.4-8.2); TRIGLYCERIDES LEVEL 178 MG/DL (<150)
[2020-07-03 13:33] LABS: TOTAL 25(OH) VITAMIN D 10.5 NG/ML (30.0-100.0)
--- NOTE | 2020-07-03 16:17 | ECGEPIP ---
[facility] Test Date: 2020-07-03 Pat Name: EARL ROSAS Department: Room: - Gender: Male Social Media Analyst: IRINA : [id number] Requested By: Edy Kumar Order Number: [id number] Reading MD: Mike Moody Measurements Intervals [place] Rate: 71 P: 69 ND: 122 QRS: 24 QRSD: 84 T: 44 QT: 372 QTc: 404 Interpretive Statements Normal sinus rhythm Normal Frequent atrial ectopic activity 05/22/19, not present on today's tracing. Electronically Signed on 07-03-2020 16:16:51 EDT by Mike Moody
== END ==
LOC: M LAB 11:49
PROVIDERS: ATTEND Internal Medicine
DX: N43.3 Hydrocele, unspecified (principal); I10 Essential (primary) hypertension; E11.65 Type 2 diabetes mellitus with hyperglycemia; E55.9 Vitamin D deficiency, unspecified; N40.1 Benign prostatic hyperplasia with lower urinary tract symptoms; E78.2 Mixed hyperlipidemia; Z79.01 Long term (current) use of anticoagulants; Z79.899 Other long term (current) drug therapy

== ENCOUNTER → 2020-07-25 | Outpatient (CLI) | payer MEDICARE ==
[~2020-07-25] MED LIST changes: +CELE1CAP9 PO; +FAMO40TA3 PO; +FURO40TA2 PO; +LANTINJ4 SC; +MM S100C PO; -SIME180C PO; +SIME180C25 PO; +VITA50005 PO
== END ==
LOC: M LABSMTC 09:52
PROVIDERS: ATTEND Anesthesiology
DX: Z01.818 Encounter for other preprocedural examination (principal); Z20.822 Contact with and (suspected) exposure to COVID-19

== ENCOUNTER 2020-07-30 11:07 | Day surgery (SDC) | payer MEDICAID, MEDICARE ==
[~2020-07-30] VITALS: Ht 157.5 cm; Wt 73.5 kg
[~2020-07-30 11:07] MED LIST changes: +LR 1,000 ML IV ONE; +ceFAZolin SOD 2 GM in IV 1 EA IV ONE
[2020-07-30] MEDS ORDERED: MIDAZOLAM INJ 2MG/2ML VIAL (J2250 PER 1MG) As Ordered ONE (14:15)
[2020-07-30] MEDS ORDERED: LIDOCAINE 2% 100MG/5ML SDV (FOR ANES.) As Ordered ONE (14:15)
[2020-07-30] MEDS ORDERED: fentaNYL 100 MCG/2 ML INJECTION (J3010) As Ordered ONE ×2 (14:15→16:08)
[2020-07-30] MEDS ORDERED: dexameTHASONE 4 MG/ML 1ML VIAL (J1100 PER 1MG) As Ordered ONE (14:15)
[2020-07-30] MEDS ORDERED: propofoL 200 MG/20 ML VIAL As Ordered ONE ×2 (14:15→16:26)
[2020-07-30] MEDS ORDERED: BACITRACIN OINTMENT 30GM TUBE As Ordered ONE (14:19)
[2020-07-30] MEDS ORDERED: LIDOCAINE 1% SDV 30ML VIAL As Ordered ONE (14:19)
[2020-07-30] MEDS ORDERED: BUPIVACAINE HCL 0.25% 30ML VIAL As Ordered ONE (14:19)
[2020-07-30] MEDS ORDERED: ACETAMINOPHEN 1000MG 100ML IV BTL (OFIRMEV) (J0131 PER 10MG) As Ordered ONE (14:35)
[2020-07-30] MEDS ORDERED: ONDANSETRON 4MG/2ML VIAL As Ordered ONE (15:24)
[2020-07-30] MEDS ORDERED: PHENYLephrine 500MCG 5ML (100MCG/ML) SYRINGE As Ordered ONE (15:35)
[2020-07-30] MEDS ORDERED: PERCOCET 5MG/325MG TAB PO PRN (17:00)
[2020-07-30] MEDS ORDERED: fentaNYL 100 MCG/2 ML INJECTION (J3010) IV PRN (17:00)
[2020-07-30] MEDS ORDERED: ONDANSETRON 4MG/2ML VIAL IV PRN (17:00)
[2020-07-30] MEDS ORDERED: LR 1,000 ML IV SCH (17:00)
[2020-07-30] MEDS: PERCOCET 5MG/325MG TAB PO PRN ×2 (17:03→17:34)
--- NOTE | 2020-07-30 17:15 | RO ---
OPERATIVE NOTE DATE OF OPERATION: 07/30/2020 PREOPERATIVE DIAGNOSIS: Bilateral hydroceles. POSTOPERATIVE DIAGNOSES: 1. Right epididymal cysts. 2. Left hydrocele. PROCEDURES: 1. Removal of right epididymal cysts. 2. Left hydrocelectomy. SURGEON: Duncan Stephens MD. SOAPING DEPARTMENT SUPERVISOR: None. ANESTHESIA: General. OPERATIVE INDICATIONS: This is a 65-year-old male who was thought based on recent scrotal ultrasound to have bilateral hydroceles. He was brought to the operating room today for treatment. DESCRIPTION OF PROCEDURE: The patient was brought to the operating room and general anesthesia was induced. Prophylactic antibiotics were infused. He was placed in the supine position, prepped and draped in the usual sterile fashion. At this point, an approximately 3 to 4 cm transverse incision was made over the right hemiscrotum. I dissected down through the scrotal wall layers. The testicle was then delivered outside of the right hemiscrotum inside the tunica vaginalis. Of note, the patient did not appear to have a right-sided hydrocele. After dissecting the tunica vaginalis off the right testicle, he actually had two right epididymal cysts with one measuring approximately 3 cm in size. Both of these epididymal cysts were then dissected out and removed to be sent off to pathology. They were dissected out with a combination of electrocautery and scissors. Once the epididymal cysts were removed, hemostasis was obtained using coagulation current. The right testicle was then delivered back inside the right hemiscrotum into its normal anatomic position. The dartos muscle was then closed with a running 3-0 Vicryl suture and the skin was closed with interrupted 2-0 Vicryl sutures. At this point, we then moved to the left side. An approximately 5-6 cm transverse incision was made over the left hemiscrotum. We dissected down through the scrotal wall layers and the testicle was delivered outside of the left hemiscrotum inside the tunica vaginalis. The patient did have a moderate size left hydrocele. The tunica vaginalis was then punctured and approximately 50 mL of simple appearing fluid was drained out of the hydrocele sac. The hydrocele sac was then excised using electrocautery. I then over-sewed the edge of the hydrocele using a running 3-0 Vicryl suture. At this point, any areas of bleeding were controlled with electrocautery. Once satisfied with hemostasis, the testicle was delivered back inside the left hemiscrotum in its normal anatomic position. The dartos muscle was then closed with a running 3-0 Vicryl suture. The skin was closed with an interrupted 2-0 Vicryl suture. Dressings were then applied and this marked the conclusion of the procedure. The patient was then awakened from anesthesia and transported to the recovery room in stable condition. ESTIMATED BLOOD LOSS: 15 mL. COMPLICATIONS: None. SPECIMENS: Right epididymal cysts, left hydrocele sac. PLAN: The patient will follow-up in the urology clinic in a few weeks for a postoperative visit. KORI
[2020-07-30 19:05] VITALS: BP 127/76
== END 2020-07-30 19:05 | disposition home or self-care (01) ==
LOC: M SDC 11:07
PROVIDERS: ATTEND Urology
DX: N43.3 Hydrocele, unspecified (principal); N50.3 Cyst of epididymis; J44.9 Chronic obstructive pulmonary disease, unspecified; N40.1 Benign prostatic hyperplasia with lower urinary tract symptoms; K21.9 Gastro-esophageal reflux disease without esophagitis; Z87.891 Personal history of nicotine dependence; Z79.899 Other long term (current) drug therapy; Z79.52 Long term (current) use of systemic steroids; Z79.51 Long term (current) use of inhaled steroids; Z79.84 Long term (current) use of oral hypoglycemic drugs; K59.00 Constipation, unspecified
CPT/HCPCS: 54830; 55040; 88302; 88305; J0131; J0690; J1100; J2250; J2370; J2405; J3010

== ENCOUNTER → 2020-10-08 | Outpatient (CLI) | payer MEDICARE, MEDICAID ==
[~2020-10-08] MED LIST changes: +ERGO500029 PO; -LR 1,000 ML IV ONE; -VITA50005 PO; -ceFAZolin SOD 2 GM in IV 1 EA IV ONE
[2020-10-08 11:11] LABS: APPEARANCE, URINE CLEAR (CLEAR); BACTERIA, URINE AUTO NEGATIVE (NEGATIVE); BILIRUBIN, URINE AUTO NEGATIVE (NEGATIVE); BLOOD, URINE BLOOD 1+ (NEGATIVE); COLOR, URINE YELLOW (YELLOW); GLUCOSE, URINE (UA) AUTO NEGATIVE (NEGATIVE); KETONE, URINE AUTO NEGATIVE (NEGATIVE); LEUKOCYTE ESTERASE, URINE AUTO NEGATIVE (NEGATIVE); MUCUS, URINE SMALL (NEGATIVE); NITRITE, URINE AUTO NEGATIVE (NEGATIVE); PROTEIN, URINE AUTO NEGATIVE (NEGATIVE); RBC, URINE AUTO 1 /HPF (0-3); SPECIFIC GRAVITY URINE AUTO 1.026 (1.002-1.035); SQUAMOUS EPITHELIAL CELL UR AU 0 /HPF (0-6); UROBILINOGEN, URINE AUTO 0.2 mg/dL (0.0-2.0); WBC, URINE AUTO 0 /HPF (0-3)
[2020-10-08 11:17] LABS: BASO % 0.3 % (0.0-1.0); EOS # 0.1 10^3/uL (0.0-0.5); EOS % 1.2 % (0.0-3.0); HEMATOCRIT 41.3 % (42.0-52.0); LYMPH # 1.3 10^3/uL (1.5-5.0); LYMPH % 22.4 % (24.0-44.0); MEAN CORPUSCULAR HGB CONC 33.9 g/dl (32.0-36.5); MEAN CORPUSCULAR VOLUME 91.6 fl (80.0-96.0); MONO # 0.6 10^3/uL (0.0-0.8); MONO % 10.6 % (2.0-8.0); NEUTROPHILS # 3.9 10^3/uL (1.5-8.5); NEUTROPHILS % 65.2 % (36.0-66.0); PLATELET COUNT, AUTOMATED 158 10^3/uL (150-450); RED BLOOD COUNT 4.51 10^6/uL (4.30-6.10); WHITE BLOOD COUNT 5.9 10^3/uL (4.0-10.0)
[2020-10-08 11:31] LABS: HEMOGLOBIN A1c 6.8 %
[2020-10-08 11:54] LABS: ALT/SGPT 24 U/L (12-78); BILIRUBIN,TOTAL 0.7 MG/DL (0.2-1.0); BLOOD UREA NITROGEN 19 MG/DL (7-18); CARBON DIOXIDE LEVEL 32 MEQ/L (21-32); CHLORIDE LEVEL 102 MEQ/L (98-107); CHOLESTEROL LEVEL 205 MG/DL (<200); CREATININE FOR GFR 1.14 MG/DL (0.70-1.30); FREE T4 0.97 NG/DL (0.76-1.46); GLOMERULAR FILTRATION RATE > 60.0 (>49); GLUCOSE, FASTING 110 MG/DL (70-100); HDL CHOLESTEROL 50 MG/DL (>40); LDL CHOLESTEROL 117 MG/DL (<100); NON-HDL-C 155 MG/DL; POTASSIUM SERUM 3.7 MEQ/L (3.5-5.1); SODIUM LEVEL 139 MEQ/L (136-145); THYROID STIMULATING HORMONE 0.408 uIU/ML (0.358-3.740); TOTAL 25(OH) VITAMIN D 71.7 NG/ML (30.0-100.0); TOTAL PROTEIN 6.8 GM/DL (6.4-8.2); TRIGLYCERIDES LEVEL 191 MG/DL (<150)
== END ==
LOC: M LAB 09:55
PROVIDERS: ATTEND Internal Medicine
DX: I10 Essential (primary) hypertension (principal); E78.2 Mixed hyperlipidemia; E11.65 Type 2 diabetes mellitus with hyperglycemia; N40.1 Benign prostatic hyperplasia with lower urinary tract symptoms; Z79.899 Other long term (current) drug therapy; E55.9 Vitamin D deficiency, unspecified

== ENCOUNTER → 2021-01-25 | Outpatient (CLI) | payer MEDICARE ==
--- NOTE | 2021-01-25 15:40 | REP ---
INDICATION: OA RT HIP, RT HIP PAIN. COMPARISON: 04/04/2016 TECHNIQUE/RADIOTRACER AND DOSE: After the intravenous administration of 22.0 mCi of technetium 99 M MDP a triple phase bone scan of the pelvis was obtained attention right hip. FINDINGS: The flow portion of the examination shows no abnormal increased or decreased radionuclide accumulation. Blood pool imaging shows focal increased radionuclide accumulation along the femoral diaphyseal component of the prosthesis. Delayed imaging shows increased activity in that same region. IMPRESSION: Findings, as described above, concerning for early loosening. This needs to be correlated clinically with appropriate follow-up. <Electronically signed by Carroll Blue > 01/25/21 [id number]
== END ==
LOC: M RAD 11:27
PROVIDERS: ATTEND Internal Medicine
DX: M25.551 Pain in right hip (principal)
CPT/HCPCS: 78315; A9503

== ENCOUNTER 2021-01-28 18:25 | Emergency (ER) | payer MEDICARE ==
[~2021-01-28] VITALS: Ht 157.5 cm; Wt 84.5 kg
[2021-01-28 18:26] VITALS: BP 123/67
== END 2021-01-28 23:03 | disposition left against medical advice (07) ==
LOC: M ED 18:25
DX: Z53.21 Procedure and treatment not carried out due to patient leaving prior to being seen by health care provider (principal)

== ENCOUNTER → 2021-04-19 | Outpatient (CLI) | payer MEDICARE, MEDICAID ==
[~2021-04-19] MED LIST changes: -LEVO500T3 PO; +LEVO500T4 PO; +LOSA25TA13 PO; -LOSA25TA14 PO
[2021-04-19 14:28] LABS: APPEARANCE, URINE CLEAR (CLEAR); BACTERIA, URINE AUTO NEGATIVE (NEGATIVE); BILIRUBIN, URINE AUTO NEGATIVE (NEGATIVE); BLOOD, URINE BLOOD NEGATIVE (NEGATIVE); COLOR, URINE YELLOW (YELLOW); GLUCOSE, URINE (UA) AUTO NEGATIVE (NEGATIVE); KETONE, URINE AUTO NEGATIVE (NEGATIVE); LEUKOCYTE ESTERASE, URINE AUTO NEGATIVE (NEGATIVE); MUCUS, URINE SMALL (NEGATIVE); NITRITE, URINE AUTO NEGATIVE (NEGATIVE); PROTEIN, URINE AUTO NEGATIVE (NEGATIVE); RBC, URINE AUTO 0 /HPF (0-3); SPECIFIC GRAVITY URINE AUTO 1.019 (1.002-1.035); SQUAMOUS EPITHELIAL CELL UR AU 0 /HPF (0-6); UROBILINOGEN, URINE AUTO 0.2 mg/dL (0.0-2.0); WBC, URINE AUTO 1 /HPF (0-3)
[2021-04-19 14:44] LABS: BASO % 0.4 % (0.0-1.0); EOS # 0.1 10^3/uL (0.0-0.5); EOS % 1.1 % (0.0-3.0); HEMATOCRIT 42.2 % (42.0-52.0); HEMOGLOBIN 14.1 g/dl (13.5-17.5); LYMPH # 2.1 10^3/uL (1.5-5.0); LYMPH % 25.2 % (24.0-44.0); MEAN CORPUSCULAR HEMOGLOBIN 30.3 pg (27.0-33.0); MEAN CORPUSCULAR HGB CONC 33.4 g/dl (32.0-36.5); MEAN CORPUSCULAR VOLUME 90.8 fl (80.0-96.0); MONO # 0.6 10^3/uL (0.0-0.8); MONO % 7.6 % (2.0-8.0); NEUTROPHILS # 5.5 10^3/uL (1.5-8.5); NEUTROPHILS % 65.3 % (36.0-66.0); PLATELET COUNT, AUTOMATED 150 10^3/uL (150-450); RED BLOOD COUNT 4.65 10^6/uL (4.30-6.10); WHITE BLOOD COUNT 8.4 10^3/uL (4.0-10.0)
[2021-04-19 15:00] LABS: GLUCOSE, FASTING 122 MG/DL (70-100)
[2021-04-19 15:01] LABS: ALBUMIN 3.5 GM/DL (3.2-5.2); ALT/SGPT 19 U/L (12-78); BILIRUBIN,TOTAL 0.3 MG/DL (0.2-1.0); BLOOD UREA NITROGEN 23 MG/DL (7-18); CALCIUM LEVEL 9.3 MG/DL (8.8-10.2); CARBON DIOXIDE LEVEL 33 MEQ/L (21-32); CHLORIDE LEVEL 102 MEQ/L (98-107); CHOLESTEROL LEVEL 194 MG/DL (<200); CHOLESTEROL RISK RATIO 3.129 (<5); CREATININE FOR GFR 1.14 MG/DL (0.70-1.30); GLOMERULAR FILTRATION RATE > 60.0 (>49); HDL CHOLESTEROL 62 MG/DL (>40); LDL CHOLESTEROL 102 MG/DL (<100); NON-HDL-C 132 MG/DL; POTASSIUM SERUM 4.3 MEQ/L (3.5-5.1); SODIUM LEVEL 138 MEQ/L (136-145); TOTAL PROTEIN 6.9 GM/DL (6.4-8.2); TRIGLYCERIDES LEVEL 150 MG/DL (<150)
== END ==
LOC: M LAB 13:19
PROVIDERS: ATTEND Internal Medicine
DX: E11.65 Type 2 diabetes mellitus with hyperglycemia (principal); I10 Essential (primary) hypertension; E78.2 Mixed hyperlipidemia

== ENCOUNTER → 2021-06-01 | Outpatient (CLI) | payer MEDICARE, MEDICAID ==
[2021-06-01 15:04] LABS: BLOOD UREA NITROGEN 18 MG/DL (7-18); CALCIUM LEVEL 8.6 MG/DL (8.8-10.2); CARBON DIOXIDE LEVEL 31 MEQ/L (21-32); CHLORIDE LEVEL 104 MEQ/L (98-107); CREATININE FOR GFR 1.09 MG/DL (0.70-1.30); GLOMERULAR FILTRATION RATE > 60.0 (>49); GLUCOSE, FASTING 112 MG/DL (70-100); POTASSIUM SERUM 4.2 MEQ/L (3.5-5.1); SODIUM LEVEL 138 MEQ/L (136-145)
== END ==
LOC: M RAD 13:16
PROVIDERS: ATTEND Internal Medicine
DX: R06.02 Shortness of breath (principal); I50.9 Heart failure, unspecified; E11.65 Type 2 diabetes mellitus with hyperglycemia

== ENCOUNTER → 2021-12-30 | Outpatient (CLI) | payer MEDICARE, MEDICAID ==
[~2021-12-30] MED LIST changes: +ALBU2.5V10 NEB; -ALBU83IN NEB; +LEVO1TAB39 PO; -LEVO500T4 PO; +POTA-150; +POTA-150 PO; -POTA10TA17; -POTA10TA17 PO
[2021-12-30 12:57] LABS: BASO % 0.3 % (0.0-1.0); EOS # 0.1 10^3/uL (0.0-0.5); EOS % 0.9 % (0.0-3.0); HEMATOCRIT 40.8 % (42.0-52.0); HEMOGLOBIN 13.5 g/dl (13.5-17.5); LYMPH # 1.4 10^3/uL (1.5-5.0); LYMPH % 20.7 % (24.0-44.0); MEAN CORPUSCULAR HEMOGLOBIN 30.3 pg (27.0-33.0); MEAN CORPUSCULAR HGB CONC 33.1 g/dl (32.0-36.5); MEAN CORPUSCULAR VOLUME 91.7 fl (80.0-96.0); MONO # 0.5 10^3/uL (0.0-0.8); MONO % 7.5 % (2.0-8.0); NEUTROPHILS # 4.8 10^3/uL (1.5-8.5); NEUTROPHILS % 70.2 % (36.0-66.0); PLATELET COUNT, AUTOMATED 146 10^3/uL (150-450); RED BLOOD COUNT 4.45 10^6/uL (4.30-6.10); WHITE BLOOD COUNT 6.8 10^3/uL (4.0-10.0)
[2021-12-30 13:48] LABS: ALBUMIN 3.4 GM/DL (3.2-5.2); ALT/SGPT 16 U/L (12-78); BILIRUBIN,TOTAL 0.4 MG/DL (0.2-1.0); BLOOD UREA NITROGEN 16 MG/DL (7-18); CALCIUM LEVEL 8.7 MG/DL (8.8-10.2); CARBON DIOXIDE LEVEL 30 MEQ/L (21-32); CHLORIDE LEVEL 103 MEQ/L (98-107); CHOLESTEROL LEVEL 173 MG/DL (<200); CHOLESTEROL RISK RATIO 3.203 (<5); CREATININE FOR GFR 1.05 MG/DL (0.70-1.30); FREE T4 0.83 NG/DL (0.76-1.46); GLOMERULAR FILTRATION RATE > 60.0 (>49); GLUCOSE, FASTING 127 MG/DL (70-100); HDL CHOLESTEROL 54 MG/DL (>40); LDL CHOLESTEROL 92 MG/DL (<100); NON-HDL-C 119 MG/DL; POTASSIUM SERUM 3.9 MEQ/L (3.5-5.1); PROSTATIC SPECIFIC AG MONITOR 2.82 NG/ML (< 4.00); SODIUM LEVEL 139 MEQ/L (136-145); THYROID STIMULATING HORMONE 0.979 uIU/ML (0.358-3.740); TOTAL PROTEIN 6.2 GM/DL (6.4-8.2); TRIGLYCERIDES LEVEL 136 MG/DL (<150)
[2021-12-30 15:34] LABS: APPEARANCE, URINE MANUAL CLEAR (CLEAR); BILIRUBIN, URINE MANUAL NEGATIVE (NEGATIVE); BLOOD URINE MANUAL NEGATIVE (NEGATIVE); COLOR, URINE MANUAL YELLOW (YELLOW); GLUCOSE, URINE (UA) MANUAL NEGATIVE (NEGATIVE); KETONE, URINE MANUAL NEGATIVE (NEGATIVE); LEUKOCYTE ESTERASE, URINE MAN NEGATIVE (NEGATIVE); NITRITE, URINE MANUAL NEGATIVE (NEGATIVE); PROTEIN, URINE MANUAL NEGATIVE (NEGATIVE); SPECIFIC GRAVITY,URINE MANUAL 1.025 (1.002-1.035); UROBILINOGEN, URINE MANUAL NORMAL (NORMAL)
== END ==
LOC: M LAB 12:12
PROVIDERS: ATTEND Internal Medicine
DX: E78.2 Mixed hyperlipidemia (principal); I10 Essential (primary) hypertension; N40.0 Benign prostatic hyperplasia without lower urinary tract symptoms

== ENCOUNTER → 2022-05-22 | Outpatient (CLI) | payer MEDICARE ==
[~2022-05-22] MED LIST changes: +PROA1AER2 IN
[2022-05-22 16:15] LABS: BASO % 0.1 % (0.0-1.0); EOS % 0.3 % (0.0-3.0); HEMOGLOBIN 14.2 g/dl (13.5-17.5); LYMPH # 0.6 10^3/uL (1.5-5.0); LYMPH % 7.2 % (24.0-44.0); MEAN CORPUSCULAR VOLUME 90.7 fl (80.0-96.0); MONO # 0.2 10^3/uL (0.0-0.8); MONO % 2.5 % (2.0-8.0); NEUTROPHILS # 7.8 10^3/uL (1.5-8.5); NEUTROPHILS % 89.6 % (36.0-66.0); PLATELET COUNT, AUTOMATED 147 10^3/uL (150-450); RED BLOOD COUNT 4.74 10^6/uL (4.30-6.10); WHITE BLOOD COUNT 8.7 10^3/uL (4.0-10.0)
[2022-05-22 16:24] LABS: INR 0.93; PROTHROMBIN TIME 12.7 SECONDS (12.5-14.5)
[2022-05-22 16:43] LABS: BLOOD UREA NITROGEN 19 MG/DL (9-23); CARBON DIOXIDE LEVEL 30 MMOL/L (20-31); CHLORIDE LEVEL 100 MMOL/L (98-107); CREATININE FOR GFR 1.11 MG/DL (0.70-1.30); GLOMERULAR FILTRATION RATE > 60.0 (>49); GLUCOSE, FASTING 268 MG/DL (74-106); POTASSIUM SERUM 4.2 MMOL/L (3.5-5.1); SODIUM LEVEL 137 MMOL/L (136-145)
== END ==
LOC: M LAB 15:47
PROVIDERS: ATTEND Internal Medicine
DX: E11.65 Type 2 diabetes mellitus with hyperglycemia (principal); I10 Essential (primary) hypertension

== ENCOUNTER → 2022-05-27 | Outpatient (CLI) | payer MEDICARE | LOC: M LABSMTC 11:50 | PROVIDERS: ATTEND Anesthesiology | DX: Z01.812 Encounter for preprocedural laboratory examination (principal); Z20.822 Contact with and (suspected) exposure to COVID-19 ==

== ENCOUNTER 2022-06-01 10:52 | Day surgery (SDC) | payer MEDICARE ==
[~2022-06-01] VITALS: Ht 157.5 cm; Wt 72.5 kg
[~2022-06-01 10:52] MED LIST changes: +BSS IRRIG/VANCO(10MG)/TOBRA(5MG)/EPINEPH(1:1000-0.5CC)500ML BAG-ORONLY IR ONE; +CEFUROXIME 1MG/0.1ML INTRACAMERAL INJ As Ordered ONE; +CYCLOPENTOLATE 1% OPHTH SOLN 2ML BTL OD SCH; +FORT600S SC; +LIDOCAINE 1% SDV 5ML VIAL As Ordered ONE; +LIDOCAINE 3.5 % 1ML OPHTH TOPICAL GEL OU ONE; +OFLOXACIN 0.3 % (OCUFLOX) OPTH SOL 5ML OD ONE; +PHENYLEPHRINE 10% OPHTH SOL 5ML OD PRN; +PHENYLEPHRINE 2.5% OPHTH SOL 2ML OD SCH; +TROPICAMIDE 1% OPHTH SOLN 15ML OD SCH
[2022-06-01] MEDS ORDERED: INSULIN LISPRO (NovoLOG) PER UNIT SC PRN (11:30)
[2022-06-01] MEDS ORDERED: fentaNYL 100 MCG/2 ML INJECTION As Ordered ONE (12:18)
[2022-06-01] MEDS ORDERED: MIDAZOLAM INJ 2MG/2ML VIAL As Ordered ONE (12:18)
[2022-06-01 12:40] VITALS: BP 132/78
== END 2022-06-01 12:45 | disposition home or self-care (01) ==
LOC: M SDC 10:52
PROVIDERS: ATTEND Ophthalmology
DX: H25.11 Age-related nuclear cataract, right eye (principal); H40.051 Ocular hypertension, right eye; I10 Essential (primary) hypertension; E78.5 Hyperlipidemia, unspecified; E11.9 Type 2 diabetes mellitus without complications; K21.9 Gastro-esophageal reflux disease without esophagitis; M06.9 Rheumatoid arthritis, unspecified; F41.9 Anxiety disorder, unspecified; F32.A Depression, unspecified; J44.9 Chronic obstructive pulmonary disease, unspecified; Z79.4 Long term (current) use of insulin; Z79.51 Long term (current) use of inhaled steroids; Z79.52 Long term (current) use of systemic steroids; Z99.81 Dependence on supplemental oxygen; Z79.899 Other long term (current) drug therapy; N40.0 Benign prostatic hyperplasia without lower urinary tract symptoms
CPT/HCPCS: 66987; C1783; J0697; J1815; J2250; J3010; V2632

== ENCOUNTER → 2022-06-10 | Outpatient (CLI) | payer MEDICARE ==
[~2022-06-10] MED LIST changes: -BSS IRRIG/VANCO(10MG)/TOBRA(5MG)/EPINEPH(1:1000-0.5CC)500ML BAG-ORONLY IR ONE; -CEFUROXIME 1MG/0.1ML INTRACAMERAL INJ As Ordered ONE; -CYCLOPENTOLATE 1% OPHTH SOLN 2ML BTL OD SCH; -LIDOCAINE 1% SDV 5ML VIAL As Ordered ONE; -LIDOCAINE 3.5 % 1ML OPHTH TOPICAL GEL OU ONE; -OFLOXACIN 0.3 % (OCUFLOX) OPTH SOL 5ML OD ONE; -PHENYLEPHRINE 10% OPHTH SOL 5ML OD PRN; -PHENYLEPHRINE 2.5% OPHTH SOL 2ML OD SCH; -TROPICAMIDE 1% OPHTH SOLN 15ML OD SCH
== END ==
LOC: M LABSMTC 11:12
PROVIDERS: ATTEND Anesthesiology
DX: Z01.812 Encounter for preprocedural laboratory examination (principal)

== ENCOUNTER → 2022-06-15 | Day surgery (SDC) | payer MEDICARE ==
[~2022-06-15] VITALS: Ht 157.5 cm; Wt 72.1 kg
[~2022-06-15] MED LIST changes: +BSS IRRIG/VANCO(10MG)/TOBRA(5MG)/EPINEPH(1:1000-0.5CC)500ML BAG-ORONLY IR ONE; +CEFUROXIME 1MG/0.1ML INTRACAMERAL INJ As Ordered ONE; +CYCLOPENTOLATE 1% OPHTH SOLN 2ML BTL OS SCH; +LIDOCAINE 1% SDV 5ML VIAL As Ordered ONE; +LIDOCAINE 3.5 % 1ML OPHTH TOPICAL GEL OU ONE; +MIDAZOLAM INJ 2MG/2ML VIAL As Ordered ONE; +OFLOXACIN 0.3 % (OCUFLOX) OPTH SOL 5ML OS ONE; +PHENYLEPHRINE 10% OPHTH SOL 5ML OS PRN; +PHENYLEPHRINE 2.5% OPHTH SOL 2ML OS SCH; +TROPICAMIDE 1% OPHTH SOLN 15ML OS SCH; +fentaNYL 100 MCG/2 ML INJECTION As Ordered ONE
[2022-06-15 15:34] VITALS: BP 138/75
== END | disposition home or self-care (01) ==
LOC: M SDC 12:58
PROVIDERS: ATTEND Ophthalmology
DX: H25.12 Age-related nuclear cataract, left eye (principal); H40.812 Glaucoma with increased episcleral venous pressure, left eye; I10 Essential (primary) hypertension; E78.5 Hyperlipidemia, unspecified; E11.9 Type 2 diabetes mellitus without complications; K21.9 Gastro-esophageal reflux disease without esophagitis; M06.9 Rheumatoid arthritis, unspecified; J44.9 Chronic obstructive pulmonary disease, unspecified; Z87.891 Personal history of nicotine dependence; N40.0 Benign prostatic hyperplasia without lower urinary tract symptoms; Z79.899 Other long term (current) drug therapy; Z79.4 Long term (current) use of insulin; Z79.52 Long term (current) use of systemic steroids; Z79.51 Long term (current) use of inhaled steroids; F41.9 Anxiety disorder, unspecified; F32.A Depression, unspecified
CPT/HCPCS: 66183; 66987; C1783; J0697; J2250; J3010; V2632

== ENCOUNTER → 2022-09-15 | Outpatient (CLI) | payer MEDICARE ==
[~2022-09-15] MED LIST changes: -BSS IRRIG/VANCO(10MG)/TOBRA(5MG)/EPINEPH(1:1000-0.5CC)500ML BAG-ORONLY IR ONE; -CEFUROXIME 1MG/0.1ML INTRACAMERAL INJ As Ordered ONE; -CYCLOPENTOLATE 1% OPHTH SOLN 2ML BTL OS SCH; -K-TA10TA2 PO; -LIDOCAINE 1% SDV 5ML VIAL As Ordered ONE; -LIDOCAINE 3.5 % 1ML OPHTH TOPICAL GEL OU ONE; -MIDAZOLAM INJ 2MG/2ML VIAL As Ordered ONE; -OFLOXACIN 0.3 % (OCUFLOX) OPTH SOL 5ML OS ONE; -PHENYLEPHRINE 10% OPHTH SOL 5ML OS PRN; -PHENYLEPHRINE 2.5% OPHTH SOL 2ML OS SCH; +POTA-165 PO; -TROPICAMIDE 1% OPHTH SOLN 15ML OS SCH; -fentaNYL 100 MCG/2 ML INJECTION As Ordered ONE
== END ==
LOC: M CARPUL 15:11
PROVIDERS: ATTEND Internal Medicine Pulmonary Disease
DX: R06.02 Shortness of breath (principal)

== ENCOUNTER → 2022-10-19 | Outpatient (CLI) | payer MEDICARE, MEDICAID ==
[~2022-10-19] MED LIST changes: +BARIUM SULFATE 700 MG TABLET (E-Z-DISK) As Ordered ONE; +E-Z-PAQUE 96% w/w SUSP 176GM BTL As Ordered ONE; +VARIBAR NECTAR 40% w/v 240ML SUSP BTL As Ordered ONE; +VARIBAR PUDDING 40% w/v 230ML TUBE As Ordered ONE
== END ==
LOC: M RAD 10:16
PROVIDERS: ATTEND Otolaryngology
DX: R13.19 Other dysphagia (principal)

== ENCOUNTER → 2022-12-12 | Outpatient (CLI) | payer MEDICARE, MEDICAID ==
[~2022-12-12] MED LIST changes: -BARIUM SULFATE 700 MG TABLET (E-Z-DISK) As Ordered ONE; +CELE0.09 PO; -CELE1CAP9 PO; -E-Z-PAQUE 96% w/w SUSP 176GM BTL As Ordered ONE; -VARIBAR NECTAR 40% w/v 240ML SUSP BTL As Ordered ONE; -VARIBAR PUDDING 40% w/v 230ML TUBE As Ordered ONE
[2022-12-12 14:05] LABS: BASO % 0.1 % (0.0-1.0); EOS % 0.1 % (0.0-3.0); HEMATOCRIT 41.2 % (42.0-52.0); HEMOGLOBIN 13.7 g/dl (13.5-17.5); LYMPH # 0.4 10^3/uL (1.5-5.0); LYMPH % 4.4 % (24.0-44.0); MEAN CORPUSCULAR HEMOGLOBIN 29.9 pg (27.0-33.0); MEAN CORPUSCULAR HGB CONC 33.3 g/dl (32.0-36.5); MONO # 0.2 10^3/uL (0.0-0.8); MONO % 1.9 % (2.0-8.0); NEUTROPHILS # 7.8 10^3/uL (1.5-8.5); PLATELET COUNT, AUTOMATED 130 10^3/uL (150-450); RED BLOOD COUNT 4.58 10^6/uL (4.30-6.10); WHITE BLOOD COUNT 8.4 10^3/uL (4.0-10.0)
[2022-12-12 14:19] LABS: APPEARANCE, URINE CLEAR (CLEAR); BACTERIA, URINE AUTO NEGATIVE (NEGATIVE); BILIRUBIN, URINE AUTO NEGATIVE (NEGATIVE); BLOOD, URINE BLOOD NEGATIVE (NEGATIVE); COLOR, URINE STRAW (YELLOW); GLUCOSE, URINE (UA) AUTO NEGATIVE (NEGATIVE); KETONE, URINE AUTO NEGATIVE (NEGATIVE); LEUKOCYTE ESTERASE, URINE AUTO NEGATIVE (NEGATIVE); MUCUS, URINE SMALL (NEGATIVE); NITRITE, URINE AUTO NEGATIVE (NEGATIVE); PROTEIN, URINE AUTO NEGATIVE (NEGATIVE); RBC, URINE AUTO 0 /HPF (0-3); SQUAMOUS EPITHELIAL CELL UR AU 0 /HPF (0-6); UROBILINOGEN, URINE AUTO 0.2 mg/dL (0.0-2.0); WBC, URINE AUTO 0 /HPF (0-3)
[2022-12-12 14:36] LABS: MALB URINE SIEMENS < 3.0 MG/L
[2022-12-12 14:39] LABS: ALBUMIN 3.7 G/DL (3.2-5.2); ALKALINE PHOSPHATASE 82 U/L (46-116); ALT/SGPT 19 U/L (7.0-40); AST/SGOT 13 U/L (<34); BILIRUBIN,TOTAL 0.5 MG/DL (0.3-1.2); BLOOD UREA NITROGEN 34 MG/DL (9-23); CALCIUM LEVEL 8.8 MG/DL (8.3-10.6); CARBON DIOXIDE LEVEL 32 MMOL/L (20-31); CHLORIDE LEVEL 98 MMOL/L (98-107); CHOLESTEROL LEVEL 179 MG/DL (<200); CHOLESTEROL RISK RATIO 3.07 (<5); CREATININE FOR GFR 0.98 MG/DL (0.70-1.30); FREE T4 1.12 NG/DL (0.89-1.76); GLOMERULAR FILTRATION RATE > 60.0 (>49); GLUCOSE, FASTING 250 MG/DL (74-106); HDL CHOLESTEROL 58.2 MG/DL (>40); LDL CHOLESTEROL 101.8 MG/DL (<100); NON-HDL-C 120.8 MG/DL; POTASSIUM SERUM 4.6 MMOL/L (3.5-5.1); SODIUM LEVEL 137 MMOL/L (136-145); THYROID STIMULATING HORMONE 0.661 uIU/ML (0.55-4.78); TOTAL PROTEIN 6.7 G/DL (5.7-8.2); TRIGLYCERIDES LEVEL 95 MG/DL (<150)
[2022-12-12 14:40] LABS: TOTAL 25(OH) VITAMIN D 23.1 NG/ML (20.0-100.0)
== END ==
LOC: M LAB 13:03
PROVIDERS: ATTEND Internal Medicine
DX: E11.65 Type 2 diabetes mellitus with hyperglycemia (principal); E55.9 Vitamin D deficiency, unspecified; E78.2 Mixed hyperlipidemia; I10 Essential (primary) hypertension; Z79.899 Other long term (current) drug therapy

== ENCOUNTER → 2023-01-13 | Outpatient (CLI) | payer MEDICARE, MEDICAID ==
[~2023-01-13] MED LIST changes: +GLIP5TAB17; -GLIP5TAB8
== END ==
LOC: M RAD 14:11
PROVIDERS: ATTEND Internal Medicine
DX: J44.9 Chronic obstructive pulmonary disease, unspecified (principal)

== ENCOUNTER → 2023-01-18 | Outpatient (REF) | payer MEDICARE, MEDICAID ==
[2023-01-18 17:51] LABS: BASO % 0.1 % (0.0-1.0); EOS % 0.1 % (0.0-3.0); HEMATOCRIT 38.9 % (42.0-52.0); HEMOGLOBIN 13.2 g/dl (13.5-17.5); LYMPH # 0.5 10^3/uL (1.5-5.0); LYMPH % 6.8 % (24.0-44.0); MEAN CORPUSCULAR HEMOGLOBIN 31.1 pg (27.0-33.0); MEAN CORPUSCULAR HGB CONC 33.9 g/dl (32.0-36.5); MEAN CORPUSCULAR VOLUME 91.5 fl (80.0-96.0); MONO # 0.2 10^3/uL (0.0-0.8); NEUTROPHILS % 89.7 % (36.0-66.0); PLATELET COUNT, AUTOMATED 143 10^3/uL (150-450); RED BLOOD COUNT 4.25 10^6/uL (4.30-6.10); WHITE BLOOD COUNT 7.8 10^3/uL (4.0-10.0)
[2023-01-18 18:22] LABS: BLOOD UREA NITROGEN 31 MG/DL (9-23); CALCIUM LEVEL 9.1 MG/DL (8.3-10.6); CARBON DIOXIDE LEVEL 31 MMOL/L (20-31); CHLORIDE LEVEL 101 MMOL/L (98-107); GLOMERULAR FILTRATION RATE > 60.0 (>49); GLUCOSE, FASTING 235 MG/DL (74-106); POTASSIUM SERUM 4.7 MMOL/L (3.5-5.1); SODIUM LEVEL 138 MMOL/L (136-145)
[2023-01-18 19:59] LABS: HEMOGLOBIN A1c 6.9 % (4.0-6.0)
== END ==
LOC: M WUC 16:28
PROVIDERS: ATTEND Internal Medicine
DX: E11.65 Type 2 diabetes mellitus with hyperglycemia (principal)

== ENCOUNTER 2023-01-31 13:08 | Outpatient (RCR) | payer MEDICARE, MEDICAID ==
[2023-02-27] MEDS ORDERED: BACT400T PO (13:55)
[2023-02-27] MEDS ORDERED: LEVO1TAB40 PO (13:55)
== END 2023-02-23 ==
LOC: M PT 13:08
PROVIDERS: ATTEND Internal Medicine
DX: J44.9 Chronic obstructive pulmonary disease, unspecified (principal); I50.9 Heart failure, unspecified; M51.26 Other intervertebral disc displacement, lumbar region

== ENCOUNTER → 2023-02-20 | Outpatient (CLI) | payer MEDICARE, MEDICAID | LOC: M RAD 15:08 | PROVIDERS: ATTEND Pain Medicine Interventional Pain Medicine | DX: M48.061 Spinal stenosis, lumbar region without neurogenic claudication (principal); M54.16 Radiculopathy, lumbar region ==

== ENCOUNTER 2023-03-09 13:18 | Day surgery (SDC) | payer MEDICARE, MEDICAID ==
[~2023-03-09] VITALS: Ht 157.5 cm; Wt 71.7 kg
[~2023-03-09 13:18] MED LIST changes: +BACT400T PO; +LEVO1TAB40 PO; +NS 1,000 ML IV ONE
[2023-03-09] MEDS ORDERED: LIDOCAINE 2% 100MG/5ML SDV (FOR ANES.) As Ordered ONE (14:01)
[2023-03-09] MEDS ORDERED: propofoL 200 MG/20 ML VIAL As Ordered ONE (14:01)
[2023-03-09] MEDS ORDERED: fentaNYL 100 MCG/2 ML INJECTION As Ordered ONE (14:01)
[2023-03-09 14:45] VITALS: BP 144/76; TEMP 96.6; O2SAT 96
== END 2023-03-09 14:50 | disposition home or self-care (01) ==
LOC: M OPP 13:18
PROVIDERS: ATTEND Internal Medicine Gastroenterology
DX: K22.89 Other specified disease of esophagus (principal); K22.2 Esophageal obstruction; K31.89 Other diseases of stomach and duodenum; E11.9 Type 2 diabetes mellitus without complications; Z87.891 Personal history of nicotine dependence; Z79.02 Long term (current) use of antithrombotics/antiplatelets; Z79.1 Long term (current) use of non-steroidal anti-inflammatories (NSAID); Z79.2 Long term (current) use of antibiotics; Z79.4 Long term (current) use of insulin; Z79.51 Long term (current) use of inhaled steroids; Z79.52 Long term (current) use of systemic steroids; Z79.83 Long term (current) use of bisphosphonates; Z79.891 Long term (current) use of opiate analgesic; Z79.899 Other long term (current) drug therapy
CPT/HCPCS: 43239; 43249; 88305; J3010

== ENCOUNTER 2023-04-23 00:25 | Inpatient (IN) | payer MEDICARE, MEDICAID ==
[2023-04-23] VITALS (16 sets, daily range): BP systolic 110–150; BP diastolic 73–85; TEMP 97.1–97.9; O2SAT 93–100
[~2023-04-23] VITALS: Ht 157.5 cm; Wt 70.1 kg
[~2023-04-23 00:25] MED LIST changes: -NS 1,000 ML IV ONE
[2023-04-23] MEDS: IPRATROPIUM 0.5MG/ALBUTEROL 2.5MG INH SOL UD 3ML (DUONEB) NEB SCH ×6 (00:45→19:12)
[2023-04-23 01:03] LABS: ABG HCO3 28.3 MMOL/L (22.0-26.0); ABG O2 SATURATION 99.3 % (95.0-99.0); ABG PARTIAL PRESSURE O2 257.6 mmHg (75.0-100.0); ABG STANDARD HCO3 24.5 MMOL/L. (22.0-26.0); ABG TOTAL CO2 30.1 MMOL/L (23.0-31.0); ABG pH (ARTERIAL) 7.286 UNITS (7.350-7.450)
[2023-04-23 01:07] LABS: ABG PARTIAL PRESSURE CO2 60.7 mmHg (35.0-45.0)
[2023-04-23 01:18] LABS: BASO % 0.1 % (0.0-1.0); EOS % 0.5 % (0.0-3.0); HEMOGLOBIN 15.4 g/dl (13.5-17.5); LYMPH # 0.8 10^3/uL (1.5-5.0); LYMPH % 10.8 % (24.0-44.0); MEAN CORPUSCULAR HEMOGLOBIN 30.5 pg (27.0-33.0); MEAN CORPUSCULAR HGB CONC 33.5 g/dl (32.0-36.5); MEAN CORPUSCULAR VOLUME 91.1 fl (80.0-96.0); MONO # 0.7 10^3/uL (0.0-0.8); MONO % 9.6 % (2.0-8.0); NEUTROPHILS # 5.9 10^3/uL (1.5-8.5); NEUTROPHILS % 78.6 % (36.0-66.0); PLATELET COUNT, AUTOMATED 139 10^3/uL (150-450); RED BLOOD COUNT 5.05 10^6/uL (4.30-6.10); WHITE BLOOD COUNT 7.5 10^3/uL (4.0-10.0)
[2023-04-23 01:25] LABS: RSV AMPLIFICATION NEGATIVE (NEGATIVE)
[2023-04-23 01:31] LABS: ALBUMIN 3.1 G/DL (3.2-5.2); ALKALINE PHOSPHATASE 84 U/L (46-116); ALT/SGPT 19 U/L (7.0-40); AST/SGOT 18 U/L (<34); BILIRUBIN,DIRECT 0.2 MG/DL (<0.4); BILIRUBIN,TOTAL 0.7 MG/DL (0.3-1.2); BLOOD UREA NITROGEN 22 MG/DL (9-23); CALCIUM LEVEL 7.9 MG/DL (8.3-10.6); CARBON DIOXIDE LEVEL 31 MMOL/L (20-31); CHLORIDE LEVEL 105 MMOL/L (98-107); CREATININE FOR GFR 0.91 MG/DL (0.70-1.30); GLOMERULAR FILTRATION RATE > 60.0 (>49); GLUCOSE, FASTING 238 MG/DL (74-106); POTASSIUM SERUM 4.4 MMOL/L (3.5-5.1); SODIUM LEVEL 142 MMOL/L (136-145); TOTAL PROTEIN 5.8 G/DL (5.7-8.2)
[2023-04-23] MEDS ORDERED: ISOVUE-370 76% 100ML VIAL As Ordered ONE (02:06)
[2023-04-23] MEDS ORDERED: MORPHINE 4 MG/ML 1ML VIAL IV PRN (02:55)
[2023-04-23] MEDS ORDERED: ONDANSETRON 4MG 2ML VIAL IV ONE (03:00)
[2023-04-23 03:54] LABS: CK-MB VALUE MASS < 1.0 NG/ML (<3.6)
[2023-04-23 03:57] LABS: CPK CREATINE PHOSPHOKINASE 59 U/L (46-171); MB/CK RELATIVE INDEX 1.69 (< OR =4)
[2023-04-23 04:23] LABS: CK-MB VALUE MASS < 1.0 NG/ML (<3.6)
[2023-04-23 04:25] LABS: CPK CREATINE PHOSPHOKINASE 47 U/L (46-171); MB/CK RELATIVE INDEX 2.12 (< OR =4)
[2023-04-23 04:35] LABS: ABG BASE EXCESS 2.8 (-2.0-2.0); ABG HCO3 30.1 MMOL/L (22.0-26.0); ABG O2 SATURATION 99.2 % (95.0-99.0); ABG PARTIAL PRESSURE CO2 57.9 mmHg (35.0-45.0); ABG PARTIAL PRESSURE O2 241.9 mmHg (75.0-100.0); ABG TOTAL CO2 31.9 MMOL/L (23.0-31.0); ABG pH (ARTERIAL) 7.334 UNITS (7.350-7.450)
[2023-04-23] MEDS ORDERED: ALBUTEROL SULFATE 2.5MG/0.5ML INH NEB SOLN NEB PRN (06:00)
[2023-04-23] MEDS ORDERED: NS 1,000 ML IV SCH (06:00)
[2023-04-23] MEDS: methylPREDNISolone 40MG 1ML VIAL IV SCH ×3 (06:30→17:15)
[2023-04-23] MEDS ORDERED: ALPR0.5T3 PO (06:42)
[2023-04-23] MEDS ORDERED: SPIR12.9 INH (06:42)
[2023-04-23] MEDS ORDERED: PRED20TA PO (06:42)
[2023-04-23] MEDS ORDERED: HUMA100I5 SC (06:42)
[2023-04-23] MEDS ORDERED: SYST1SOL4 OU (06:42)
[2023-04-23] MEDS ORDERED: ADV500INH INH (06:42)
[2023-04-23] MEDS ORDERED: BUDE2SUS3 NEB (06:49)
[2023-04-23] MEDS ORDERED: OMEP40CA5 PO (06:49)
[2023-04-23] MEDS ORDERED: CARV12.5 PO (06:49)
[2023-04-23] MEDS ORDERED: CYCL5TAB PO (06:49)
[2023-04-23] MEDS ORDERED: LEVO1TAB40 PO (06:49)
[2023-04-23] MEDS ORDERED: OXYC10TA12 PO (06:49)
[2023-04-23] MEDS ORDERED: BISA5TAB77 PO (06:49)
[2023-04-23] MEDS ORDERED: HOME MED LIST COMPLETE! XX SCH (06:50)
[2023-04-23] MEDS ORDERED: ALPRAZolam 0.5 MG TAB PO PRN (06:55)
[2023-04-23] MEDS ORDERED: ALBUTEROL SULFATE 2.5MG/0.5ML INH NEB SOLN NEB ONE (07:00)
[2023-04-23 07:24] LABS: HEMOGLOBIN 14.3 g/dl (13.5-17.5); LYMPH # 0.3 10^3/uL (1.5-5.0); LYMPH % 4.5 % (24.0-44.0); MEAN CORPUSCULAR HEMOGLOBIN 30.6 pg (27.0-33.0); MEAN CORPUSCULAR VOLUME 89.7 fl (80.0-96.0); MONO # 0.1 10^3/uL (0.0-0.8); MONO % 1.5 % (2.0-8.0); NEUTROPHILS # 5.5 10^3/uL (1.5-8.5); NEUTROPHILS % 93.7 % (36.0-66.0); PLATELET COUNT, AUTOMATED 124 10^3/uL (150-450); RED BLOOD COUNT 4.68 10^6/uL (4.30-6.10); WHITE BLOOD COUNT 5.8 10^3/uL (4.0-10.0)
[2023-04-23 07:33] LABS: INR 1.05; PROTHROMBIN TIME 13.4 SECONDS (12.5-14.5)
[2023-04-23 07:34] LABS: PARTIAL THROMBOPLASTIN TIME 26.8 SECONDS (24.8-34.2)
[2023-04-23 07:37] LABS: D-DIMER QUANT 0.66 ug/mL (<0.5)
[2023-04-23 07:47] LABS: LDH LACTATE DEHYDROGENASE 203 U/L (120-246)
[2023-04-23 07:48] LABS: BLOOD UREA NITROGEN 20 MG/DL (9-23); CALCIUM LEVEL 8.2 MG/DL (8.3-10.6); CARBON DIOXIDE LEVEL 30 MMOL/L (20-31); CHLORIDE LEVEL 99 MMOL/L (98-107); CREATININE FOR GFR 0.86 MG/DL (0.70-1.30); GLOMERULAR FILTRATION RATE > 60.0 (>49); GLUCOSE, FASTING 278 MG/DL (74-106); POTASSIUM SERUM 4.9 MMOL/L (3.5-5.1); SODIUM LEVEL 134 MMOL/L (136-145)
[2023-04-23 07:51] LABS: FERRITIN 146.5 NG/ML (10.5-307.3)
[2023-04-23 08:00] LABS: PROCALCITONIN 0.15 ng/ml
[2023-04-23] MEDS ORDERED: REMDESIVIR 200 MG in NS 250 ML IV ONE (08:00)
[2023-04-23] MEDS: ADVAIR HFA 230/21MCG INHALER INH SCH ×2 (08:00→19:13)
[2023-04-23] MEDS: TIOTROPIUM INHALER/CAPSULE (SPIRIVA) INH SCH (08:00)
[2023-04-23] MEDS ORDERED: LEVEMIR (INSULIN DETEMIR) 1 UNITS/0.01ML SC SCH (09:00)
[2023-04-23] MEDS: BARICITINIB 2MG TABLET (OLUMIANT) FOR EUA PO SCH (09:00)
[2023-04-23] MEDS: ENOXAPARIN 40MG/0.4ML SYRINGE (J1650 PER 10MG) SC SCH (09:00)
[2023-04-23] MEDS: oxyCODONE 5MG TAB PO PRN ×3 (09:14→21:16)
[2023-04-23] MEDS ORDERED: INSULIN LISPRO (NovoLOG) PER UNIT SC SCH (12:00)
[2023-04-23] MEDS ORDERED: DEXTROSE 50% 50ML SYRINGE IV PRN (12:45)
[2023-04-23] MEDS ORDERED: GLUCAGON INJ 1MG VIAL SC PRN (12:45)
[2023-04-23] MEDS ORDERED: GLUCOSE 4GM CHEW TABLET PO PRN (12:45)
[2023-04-23] MEDS: INSULIN LISPRO (NovoLOG) PER UNIT SC SCH ×2 (17:15→20:59)
[2023-04-23] MEDS: BUDESONIDE 0.25 MG/2 ML INHALATION SUSPENSION INH SCH (19:13)
[2023-04-23] MEDS: POTASSIUM CHLORIDE 10MEQ SR TABLET PO SCH (20:44)
[2023-04-23] MEDS: CARVedilol 12.5 MG TAB PO SCH (20:58)
[2023-04-23] MEDS: LEVEMIR (INSULIN DETEMIR) 1 UNITS/0.01ML SC SCH (21:00)
[2023-04-23] MEDS ORDERED: FORTEO 20 MCG SC SCH (21:00)
[2023-04-24] VITALS (17 sets, daily range): BP systolic 107–147; BP diastolic 63–76; TEMP 97–98.8; O2SAT 91–98
[2023-04-24] MEDS: methylPREDNISolone 40MG 1ML VIAL IV SCH ×2 (00:30→05:13)
[2023-04-24] MEDS: IPRATROPIUM 0.5MG/ALBUTEROL 2.5MG INH SOL UD 3ML (DUONEB) NEB SCH ×4 (01:14→19:47)
[2023-04-24] MEDS: oxyCODONE 5MG TAB PO PRN ×3 (01:31→16:12)
[2023-04-24 05:21] LABS: HEMATOCRIT 36.8 % (42.0-52.0); HEMOGLOBIN 12.6 g/dl (13.5-17.5); MEAN CORPUSCULAR HEMOGLOBIN 31.1 pg (27.0-33.0); MEAN CORPUSCULAR HGB CONC 34.2 g/dl (32.0-36.5); MEAN CORPUSCULAR VOLUME 90.9 fl (80.0-96.0); PLATELET COUNT, AUTOMATED 133 10^3/uL (150-450); RED BLOOD COUNT 4.05 10^6/uL (4.30-6.10); WHITE BLOOD COUNT 5.3 10^3/uL (4.0-10.0)
[2023-04-24 05:42] LABS: BLOOD UREA NITROGEN 30 MG/DL (9-23); CALCIUM LEVEL 7.9 MG/DL (8.3-10.6); CARBON DIOXIDE LEVEL 32 MMOL/L (20-31); CHLORIDE LEVEL 102 MMOL/L (98-107); CREATININE FOR GFR 0.78 MG/DL (0.70-1.30); GLOMERULAR FILTRATION RATE > 60.0 (>49); GLUCOSE, FASTING 162 MG/DL (74-106); POTASSIUM SERUM 4.5 MMOL/L (3.5-5.1); SODIUM LEVEL 138 MMOL/L (136-145)
[2023-04-24] MEDS: ADVAIR HFA 230/21MCG INHALER INH SCH ×2 (07:58→19:47)
[2023-04-24] MEDS: BUDESONIDE 0.25 MG/2 ML INHALATION SUSPENSION INH SCH ×2 (07:58→19:47)
[2023-04-24] MEDS: TIOTROPIUM INHALER/CAPSULE (SPIRIVA) INH SCH (07:58)
[2023-04-24] MEDS: INSULIN LISPRO (NovoLOG) PER UNIT SC SCH ×4 (08:41→21:00)
[2023-04-24] MEDS: BARICITINIB 2MG TABLET (OLUMIANT) FOR EUA PO SCH (08:42)
[2023-04-24] MEDS: LORATADINE 10 MG TAB PO SCH (08:42)
[2023-04-24] MEDS: CARVedilol 12.5 MG TAB PO SCH ×2 (08:42→21:15)
[2023-04-24] MEDS: BACTRIM 160MG/800MG DS TAB PO SCH (08:42)
[2023-04-24] MEDS: POTASSIUM CHLORIDE 10MEQ SR TABLET PO SCH ×2 (08:43→21:14)
[2023-04-24] MEDS: LEVEMIR (INSULIN DETEMIR) 1 UNITS/0.01ML SC SCH ×2 (08:43→21:15)
[2023-04-24] MEDS: OMEPRAZOLE 20MG CAP PO SCH (08:43)
[2023-04-24] MEDS: SERTRALINE 100 MG TAB PO SCH (08:43)
[2023-04-24] MEDS: ENOXAPARIN 40MG/0.4ML SYRINGE (J1650 PER 10MG) SC SCH (08:43)
[2023-04-24] MEDS: FUROSEMIDE 40 MG TAB PO SCH (08:43)
[2023-04-24] MEDS: REMDESIVIR 100 MG in NS 250 ML IV SCH (08:49)
[2023-04-24] MEDS: SPIRONOLACTONE 50 MG TAB PO SCH (08:55)
[2023-04-24] MEDS: ONDANSETRON 4MG ORAL DISINTEGRATING TAB SL PRN (17:24)
[2023-04-25] MEDS: IPRATROPIUM 0.5MG/ALBUTEROL 2.5MG INH SOL UD 3ML (DUONEB) NEB SCH ×4 (01:46→20:14)
[2023-04-25] MEDS: oxyCODONE 5MG TAB PO PRN ×3 (02:41→20:53)
[2023-04-25 06:04] VITALS: BP 119/70; TEMP 98.1; O2SAT 99
[2023-04-25 06:44] LABS: HEMATOCRIT 37.9 % (42.0-52.0); HEMOGLOBIN 12.6 g/dl (13.5-17.5); MEAN CORPUSCULAR HEMOGLOBIN 29.9 pg (27.0-33.0); MEAN CORPUSCULAR HGB CONC 33.2 g/dl (32.0-36.5); PLATELET COUNT, AUTOMATED 148 10^3/uL (150-450); RED BLOOD COUNT 4.21 10^6/uL (4.30-6.10); WHITE BLOOD COUNT 6.1 10^3/uL (4.0-10.0)
[2023-04-25 07:03] LABS: BLOOD UREA NITROGEN 32 MG/DL (9-23); CALCIUM LEVEL 7.8 MG/DL (8.3-10.6); CARBON DIOXIDE LEVEL 30 MMOL/L (20-31); CHLORIDE LEVEL 101 MMOL/L (98-107); CREATININE FOR GFR 0.97 MG/DL (0.70-1.30); GLOMERULAR FILTRATION RATE > 60.0 (>49); GLUCOSE, FASTING 104 MG/DL (74-106); POTASSIUM SERUM 4.1 MMOL/L (3.5-5.1); SODIUM LEVEL 135 MMOL/L (136-145)
[2023-04-25] MEDS: ADVAIR HFA 230/21MCG INHALER INH SCH (07:26)
[2023-04-25] MEDS: TIOTROPIUM INHALER/CAPSULE (SPIRIVA) INH SCH (07:26)
[2023-04-25] MEDS: BUDESONIDE 0.25 MG/2 ML INHALATION SUSPENSION INH SCH (07:26)
[2023-04-25] MEDS: INSULIN LISPRO (NovoLOG) PER UNIT SC SCH ×4 (07:30→20:51)
[2023-04-25] MEDS: LEVEMIR (INSULIN DETEMIR) 1 UNITS/0.01ML SC SCH ×2 (09:00→20:52)
[2023-04-25] MEDS ORDERED: predniSONE 20 MG TAB PO SCH (09:00)
[2023-04-25] MEDS: REMDESIVIR 100 MG in NS 250 ML IV SCH (09:34)
[2023-04-25] MEDS: SPIRONOLACTONE 50 MG TAB PO SCH (09:34)
[2023-04-25] MEDS: ENOXAPARIN 40MG/0.4ML SYRINGE (J1650 PER 10MG) SC SCH (09:34)
[2023-04-25] MEDS: CARVedilol 12.5 MG TAB PO SCH ×2 (09:35→20:53)
[2023-04-25] MEDS: POTASSIUM CHLORIDE 10MEQ SR TABLET PO SCH (09:35)
[2023-04-25] MEDS: FUROSEMIDE 40 MG TAB PO SCH (09:35)
[2023-04-25] MEDS: LORATADINE 10 MG TAB PO SCH (09:35)
[2023-04-25] MEDS: OMEPRAZOLE 20MG CAP PO SCH (09:35)
[2023-04-25] MEDS: SERTRALINE 100 MG TAB PO SCH (09:36)
[2023-04-25] MEDS: BARICITINIB 2MG TABLET (OLUMIANT) FOR EUA PO SCH (09:48)
[2023-04-25] MEDS: guaiFENesin ER TABLET 600 MG TAB PO SCH ×2 (13:05→20:53)
[2023-04-25] MEDS: ONDANSETRON 4MG ORAL DISINTEGRATING TAB SL PRN (13:06)
[2023-04-25 14:00] VITALS: BP 114/73; TEMP 98.1; O2SAT 90
[2023-04-25] MEDS: FORMOTEROL FUMARATE 20 MCG/2 ML INHALATION SOLUTION (PERFOROMIST) INH SCH (20:14)
[2023-04-25] MEDS: BUDESONIDE 0.5 MG/2 ML INHALATION SUSPENSION NEB SCH (20:14)
[2023-04-25 20:37] VITALS: BP_SYST 142; BP_SYST 143; BP_DIAS 80; TEMP 98; O2SAT 94
[2023-04-25] MEDS: methylPREDNISolone 40MG 1ML VIAL IV SCH (20:51)
[2023-04-25 21:00] VITALS: O2SAT 93
[2023-04-26] VITALS: O2SAT 91
[2023-04-26] MEDS: IPRATROPIUM 0.5MG/ALBUTEROL 2.5MG INH SOL UD 3ML (DUONEB) NEB SCH ×4 (02:29→20:45)
[2023-04-26 04:00] VITALS: O2SAT 95
[2023-04-26 05:53] LABS: HEMOGLOBIN 14.2 g/dl (13.5-17.5); MEAN CORPUSCULAR HEMOGLOBIN 31.6 pg (27.0-33.0); MEAN CORPUSCULAR HGB CONC 35.5 g/dl (32.0-36.5); MEAN CORPUSCULAR VOLUME 88.9 fl (80.0-96.0); PLATELET COUNT, AUTOMATED 145 10^3/uL (150-450); WHITE BLOOD COUNT 5.6 10^3/uL (4.0-10.0)
[2023-04-26 06:21] LABS: BLOOD UREA NITROGEN 26 MG/DL (9-23); CALCIUM LEVEL 8.3 MG/DL (8.3-10.6); CARBON DIOXIDE LEVEL 31 MMOL/L (20-31); CHLORIDE LEVEL 100 MMOL/L (98-107); CREATININE FOR GFR 0.87 MG/DL (0.70-1.30); GLOMERULAR FILTRATION RATE > 60.0 (>49); GLUCOSE, FASTING 228 MG/DL (74-106); POTASSIUM SERUM 4.5 MMOL/L (3.5-5.1); SODIUM LEVEL 135 MMOL/L (136-145)
[2023-04-26 06:28] VITALS: BP 105/73; TEMP 98.1; O2SAT 94
[2023-04-26] MEDS: oxyCODONE 5MG TAB PO PRN ×2 (07:04→19:39)
[2023-04-26] MEDS: TIOTROPIUM INHALER/CAPSULE (SPIRIVA) INH SCH (07:52)
[2023-04-26] MEDS: BUDESONIDE 0.5 MG/2 ML INHALATION SUSPENSION NEB SCH ×2 (07:52→20:45)
[2023-04-26] MEDS: FORMOTEROL FUMARATE 20 MCG/2 ML INHALATION SOLUTION (PERFOROMIST) INH SCH ×2 (07:52→20:45)
[2023-04-26] MEDS: ENOXAPARIN 40MG/0.4ML SYRINGE (J1650 PER 10MG) SC SCH (08:24)
[2023-04-26] MEDS: INSULIN LISPRO (NovoLOG) PER UNIT SC SCH ×4 (08:24→21:00)
[2023-04-26] MEDS: methylPREDNISolone 40MG 1ML VIAL IV SCH ×2 (08:24→20:30)
[2023-04-26] MEDS: SERTRALINE 100 MG TAB PO SCH (08:25)
[2023-04-26] MEDS: FUROSEMIDE 40 MG TAB PO SCH (08:25)
[2023-04-26] MEDS: LEVEMIR (INSULIN DETEMIR) 1 UNITS/0.01ML SC SCH ×2 (08:25→20:37)
[2023-04-26] MEDS: BACTRIM 160MG/800MG DS TAB PO SCH (08:25)
[2023-04-26] MEDS: OMEPRAZOLE 20MG CAP PO SCH (08:25)
[2023-04-26] MEDS: LORATADINE 10 MG TAB PO SCH (08:25)
[2023-04-26] MEDS: SPIRONOLACTONE 50 MG TAB PO SCH (08:25)
[2023-04-26] MEDS: CARVedilol 12.5 MG TAB PO SCH ×2 (08:26→20:31)
[2023-04-26] MEDS: guaiFENesin ER TABLET 600 MG TAB PO SCH ×2 (08:26→20:30)
[2023-04-26] MEDS: BARICITINIB 2MG TABLET (OLUMIANT) FOR EUA PO SCH (08:26)
[2023-04-26] MEDS: REMDESIVIR 100 MG in NS 250 ML IV SCH (08:27)
[2023-04-26] MEDS: ONDANSETRON 4MG ORAL DISINTEGRATING TAB SL PRN (08:35)
[2023-04-26 14:00] VITALS: BP 142/85; TEMP 98.8; O2SAT 90
[2023-04-26 20:15] VITALS: BP 150/85; TEMP 98.1; O2SAT 91
[2023-04-27] MEDS: IPRATROPIUM 0.5MG/ALBUTEROL 2.5MG INH SOL UD 3ML (DUONEB) NEB SCH ×2 (01:51→07:24)
[2023-04-27] MEDS: oxyCODONE 5MG TAB PO PRN (05:51)
[2023-04-27 05:52] VITALS: BP 141/78; TEMP 98.1; O2SAT 92
[2023-04-27 06:51] VITALS: O2SAT 95
[2023-04-27] MEDS: FORMOTEROL FUMARATE 20 MCG/2 ML INHALATION SOLUTION (PERFOROMIST) INH SCH (07:23)
[2023-04-27] MEDS: BUDESONIDE 0.5 MG/2 ML INHALATION SUSPENSION NEB SCH (07:23)
[2023-04-27] MEDS: TIOTROPIUM INHALER/CAPSULE (SPIRIVA) INH SCH (07:23)
[2023-04-27] MEDS: LEVEMIR (INSULIN DETEMIR) 1 UNITS/0.01ML SC SCH (08:20)
[2023-04-27] MEDS: INSULIN LISPRO (NovoLOG) PER UNIT SC SCH (08:20)
[2023-04-27] MEDS: SERTRALINE 100 MG TAB PO SCH (08:21)
[2023-04-27] MEDS: OMEPRAZOLE 20MG CAP PO SCH (08:21)
[2023-04-27] MEDS: BARICITINIB 2MG TABLET (OLUMIANT) FOR EUA PO SCH (08:21)
[2023-04-27] MEDS: LORATADINE 10 MG TAB PO SCH (08:21)
[2023-04-27] MEDS: guaiFENesin ER TABLET 600 MG TAB PO SCH (08:21)
[2023-04-27 08:22] VITALS: BP 138/78
[2023-04-27] MEDS: CARVedilol 12.5 MG TAB PO SCH (08:22)
[2023-04-27] MEDS: SPIRONOLACTONE 50 MG TAB PO SCH (08:22)
[2023-04-27] MEDS: FUROSEMIDE 40 MG TAB PO SCH (08:22)
[2023-04-27] MEDS: methylPREDNISolone 40MG 1ML VIAL IV SCH (08:22)
[2023-04-27] MEDS: ENOXAPARIN 40MG/0.4ML SYRINGE (J1650 PER 10MG) SC SCH (08:23)
[2023-04-27] MEDS: REMDESIVIR 100 MG in NS 250 ML IV SCH (08:23)
[2023-04-27] MEDS ORDERED: MOM 30ML SUSPENSION UDC PO ONE (09:30)
[2023-04-27] MEDS ORDERED: MUCI600T31 PO (10:40)
[2023-04-27] MEDS ORDERED: IPRA0.00 INH (10:40)
[2023-04-27] MEDS ORDERED: PRED20TA PO ×2 (10:40)
[2023-04-27] MEDS ORDERED: MIRA3350 PO (10:42)
[2023-04-27] MEDS ORDERED: BACT800T5 PO (10:45)
== END 2023-04-27 11:48 | disposition home or self-care (01) | DRG 177 ==
LOC: M ED 00:25 → M ED INP 06:00 → M ICU 08:43 → M MSPAV 04-24 11:28
PROVIDERS: ADMIT Internal Medicine; ATTEND Internal Medicine
DX: U07.1 COVID-19 (principal); J96.22 Acute and chronic respiratory failure with hypercapnia; J12.82 Pneumonia due to coronavirus disease 2019; J96.21 Acute and chronic respiratory failure with hypoxia; R18.8 Other ascites; J44.1 Chronic obstructive pulmonary disease with (acute) exacerbation; I50.32 Chronic diastolic (congestive) heart failure; F11.20 Opioid dependence, uncomplicated; F15.20 Other stimulant dependence, uncomplicated; E11.9 Type 2 diabetes mellitus without complications; M81.0 Age-related osteoporosis without current pathological fracture; Z99.81 Dependence on supplemental oxygen; G89.29 Other chronic pain; I27.81 Cor pulmonale (chronic); F41.9 Anxiety disorder, unspecified; K21.9 Gastro-esophageal reflux disease without esophagitis; I11.0 Hypertensive heart disease with heart failure; K74.60 Unspecified cirrhosis of liver; F32.A Depression, unspecified; I27.20 Pulmonary hypertension, unspecified; Z79.899 Other long term (current) drug therapy; Z87.891 Personal history of nicotine dependence; Z79.52 Long term (current) use of systemic steroids

== ENCOUNTER → 2023-08-07 | Outpatient (CLI) | payer MEDICARE, MEDICAID ==
[~2023-08-07] MED LIST changes: +ALPR0.5T3 PO; +BACT800T5 PO; +BISA5TAB77 PO; +BUDE2SUS3 NEB; +CYCL5TAB PO; +HUMA100I5 SC; +MIRA3350 PO; +MUCI600T31 PO; +OMEP40CA5 PO; +OXYC10TA12 PO; +SYST1SOL4 OU
[2023-08-07 12:53] LABS: VENOUS BASE EXCESS 2.1 (-2.0-2.0); VENOUS HCO3 27.5 MMOL/L (23.0-27.0); VENOUS O2 SATURATION 92.8 % (60.0-80.0); VENOUS PARTIAL PRESSURE CO2 45.9 mmHg (38.0-50.0); VENOUS PARTIAL PRESSURE O2 65.7 mmHg (30.0-50.0); VENOUS PH 7.396 UNITS (7.330-7.430); VENOUS STANDARD HCO3 26.2 MMOL/L; VENOUS TOTAL CO2 28.9 MMOL/L (24.0-28.0)
[2023-08-07 13:11] LABS: BASO % 0.1 % (0.0-1.0); EOS % 0.3 % (0.0-3.0); HEMATOCRIT 39.4 % (42.0-52.0); HEMOGLOBIN 13.7 g/dl (13.5-17.5); LYMPH # 0.6 10^3/uL (1.5-5.0); LYMPH % 8.4 % (24.0-44.0); MEAN CORPUSCULAR HEMOGLOBIN 31.4 pg (27.0-33.0); MEAN CORPUSCULAR HGB CONC 34.8 g/dl (32.0-36.5); MEAN CORPUSCULAR VOLUME 90.2 fl (80.0-96.0); MONO # 0.4 10^3/uL (0.0-0.8); MONO % 5.7 % (2.0-8.0); NEUTROPHILS # 5.8 10^3/uL (1.5-8.5); NEUTROPHILS % 84.6 % (36.0-66.0); PLATELET COUNT, AUTOMATED 122 10^3/uL (150-450); RED BLOOD COUNT 4.37 10^6/uL (4.30-6.10); WHITE BLOOD COUNT 6.8 10^3/uL (4.0-10.0)
[2023-08-07 13:30] LABS: HEMOGLOBIN A1c 7.8 % (4.0-6.0)
[2023-08-07 13:38] LABS: CPK CREATINE PHOSPHOKINASE 49 U/L (46-171)
[2023-08-07 13:39] LABS: ALBUMIN 3.3 G/DL (3.2-5.2); ALKALINE PHOSPHATASE 74 U/L (46-116); ALT/SGPT 20 U/L (7.0-40); AST/SGOT 13 U/L (<34); BILIRUBIN,TOTAL 0.6 MG/DL (0.3-1.2); BLOOD UREA NITROGEN 28 MG/DL (9-23); CALCIUM LEVEL 8.5 MG/DL (8.3-10.6); CARBON DIOXIDE LEVEL 29 MMOL/L (20-31); CHLORIDE LEVEL 100 MMOL/L (98-107); CHOLESTEROL LEVEL 174 MG/DL (<200); CHOLESTEROL RISK RATIO 3.93 (<5); CREATININE FOR GFR 0.97 MG/DL (0.70-1.30); GLOMERULAR FILTRATION RATE > 60.0 (>49); GLUCOSE, FASTING 170 MG/DL (74-106); HDL CHOLESTEROL 44.2 MG/DL (>40); LDL CHOLESTEROL 108.4 MG/DL (<100); NON-HDL-C 129.8 MG/DL; POTASSIUM SERUM 3.9 MMOL/L (3.5-5.1); SODIUM LEVEL 137 MMOL/L (136-145); TOTAL PROTEIN 5.7 G/DL (5.7-8.2); TRIGLYCERIDES LEVEL 107 MG/DL (<150)
== END ==
LOC: M LAB 12:27
PROVIDERS: ATTEND Internal Medicine
DX: I50.9 Heart failure, unspecified (principal); E11.65 Type 2 diabetes mellitus with hyperglycemia; J44.9 Chronic obstructive pulmonary disease, unspecified

== ENCOUNTER → 2023-08-17 | Outpatient (CLI) | payer MEDICARE ==
[2023-08-17 09:44] LABS: ALBUMIN 3.4 G/DL (3.2-5.2); ALKALINE PHOSPHATASE 71 U/L (46-116); ALT/SGPT 21 U/L (7.0-40); AST/SGOT < 8 U/L (<34); BILIRUBIN,TOTAL 0.5 MG/DL (0.3-1.2); BLOOD UREA NITROGEN 31 MG/DL (9-23); CALCIUM LEVEL 8.1 MG/DL (8.3-10.6); CARBON DIOXIDE LEVEL 31 MMOL/L (20-31); CHLORIDE LEVEL 101 MMOL/L (98-107); CREATININE FOR GFR 0.84 MG/DL (0.70-1.30); GLOMERULAR FILTRATION RATE > 60.0 (>49); GLUCOSE, FASTING 111 MG/DL (74-106); POTASSIUM SERUM 4.1 MMOL/L (3.5-5.1); SODIUM LEVEL 139 MMOL/L (136-145); TOTAL PROTEIN 5.9 G/DL (5.7-8.2)
[2023-08-17 09:52] LABS: IMMUNOGLOBULIN A 156.8 MG/DL (40-350)
[2023-08-20 09:08] LABS: ALPHA 1 ANTITRYPSIN 138 mg/dL (101-187); ANTI-MITOCHONDRIAL ANTIBODY <20.0 Units (0.0-20.0); ANTINUCLEAR ANTIBODIES DIRECT Negative (Negative); CERULOPLASMIN 21.1 mg/dL (16.0-31.0); HEPATITIS A IgG TOTAL Positive (Negative); LIVER-KIDNEY MICROSOMAL ABY <20.1 Units (0.0-20.0); TISSUE TRANSGLUTAMINASE IgA <2 U/mL (0-3)
== END ==
LOC: M RAD 08:12
PROVIDERS: ATTEND Nurse Practitioner Family
DX: K70.30 Alcoholic cirrhosis of liver without ascites (principal); K76.0 Fatty (change of) liver, not elsewhere classified; R10.11 Right upper quadrant pain

== ENCOUNTER 2023-10-24 22:45 | Emergency (ER) | payer MEDICARE, MEDICAID ==
[~2023-10-24] VITALS: Ht 172.7 cm; Wt 70.5 kg
[2023-10-25] MEDS: methylPREDNISolone 125MG 2ML VIAL IV ONE (00:02)
[2023-10-25 00:05] LABS: VENOUS BASE EXCESS 4.6 (-2.0-2.0); VENOUS HCO3 30.7 MMOL/L (23.0-27.0); VENOUS O2 SATURATION 92.3 % (60.0-80.0); VENOUS PARTIAL PRESSURE CO2 51.4 mmHg (38.0-50.0); VENOUS PARTIAL PRESSURE O2 63.6 mmHg (30.0-50.0); VENOUS PH 7.394 UNITS (7.330-7.430); VENOUS STANDARD HCO3 28.5 MMOL/L; VENOUS TOTAL CO2 32.3 MMOL/L (24.0-28.0)
[2023-10-25] MEDS: IPRATROPIUM 0.5MG/ALBUTEROL 2.5MG INH SOL UD 3ML (DUONEB) NEB PRN (00:07)
[2023-10-25 00:11] VITALS: O2SAT 91
[2023-10-25 00:19] LABS: BASO % 0.1 % (0.0-1.0); EOS % 0.5 % (0.0-3.0); HEMATOCRIT 37.2 % (42.0-52.0); LYMPH # 0.4 10^3/uL (1.5-5.0); LYMPH % 5.4 % (24.0-44.0); MEAN CORPUSCULAR HEMOGLOBIN 31.3 pg (27.0-33.0); MEAN CORPUSCULAR HGB CONC 34.9 g/dl (32.0-36.5); MEAN CORPUSCULAR VOLUME 89.6 fl (80.0-96.0); MONO # 0.4 10^3/uL (0.0-0.8); MONO % 4.8 % (2.0-8.0); NEUTROPHILS # 7.3 10^3/uL (1.5-8.5); NEUTROPHILS % 88.6 % (36.0-66.0); PLATELET COUNT, AUTOMATED 171 10^3/uL (150-450); RED BLOOD COUNT 4.15 10^6/uL (4.30-6.10); WHITE BLOOD COUNT 8.2 10^3/uL (4.0-10.0)
[2023-10-25 00:42] LABS: CK-MB VALUE MASS 1.9 NG/ML (<3.6)
[2023-10-25 00:44] LABS: CPK CREATINE PHOSPHOKINASE 64 U/L (46-171); MB/CK RELATIVE INDEX 2.96 (< OR =4)
[2023-10-25 00:45] LABS: ALKALINE PHOSPHATASE 81 U/L (46-116); ALT/SGPT 17 U/L (7.0-40); AST/SGOT 13 U/L (<34); BILIRUBIN,DIRECT < 0.1 MG/DL (<0.4); BILIRUBIN,TOTAL 0.3 MG/DL (0.3-1.2); BLOOD UREA NITROGEN 24 MG/DL (9-23); CALCIUM LEVEL 8.4 MG/DL (8.3-10.6); CARBON DIOXIDE LEVEL 32 MMOL/L (20-31); CHLORIDE LEVEL 102 MMOL/L (98-107); GLOMERULAR FILTRATION RATE > 60.0 (>49); GLUCOSE, FASTING 132 MG/DL (74-106); POTASSIUM SERUM 4.2 MMOL/L (3.5-5.1); SODIUM LEVEL 139 MMOL/L (136-145); TOTAL PROTEIN 5.5 G/DL (5.7-8.2)
[2023-10-25 01:30] LABS: CK-MB VALUE MASS 2.1 NG/ML (<3.6)
[2023-10-25 01:31] LABS: MB/CK RELATIVE INDEX 3.13 (< OR =4)
[2023-10-25] MEDS ORDERED: ISOVUE-370 76% 100ML VIAL As Ordered ONE (01:40)
[2023-10-25 04:30] VITALS: BP 123/68; TEMP 97.7; O2SAT 92
[2023-10-25] MEDS ORDERED: PRED20TA PO (04:35)
[2023-10-25] MEDS: METHYLNALTREXONE BROMIDE 12MG/0.6ML VIAL (RELISTOR) SC ONE (04:45)
== END 2023-10-25 08:58 | disposition home or self-care (01) ==
LOC: M ED 22:45
DX: J44.1 Chronic obstructive pulmonary disease with (acute) exacerbation (principal); K59.00 Constipation, unspecified; E11.9 Type 2 diabetes mellitus without complications; Z79.4 Long term (current) use of insulin; Z87.891 Personal history of nicotine dependence; Z79.52 Long term (current) use of systemic steroids; Z79.899 Other long term (current) drug therapy; Z79.02 Long term (current) use of antithrombotics/antiplatelets
CPT/HCPCS: 71045; 71275; 80048; 80076; 82550; 82553; 82803; 83605; 83880; 84484; 85025; 87040; 87486; 87581; 87633; 87798; 93005; 93041; 94640; 94760; 96374; 96375; 99285; J2212; J2919; Q9967

== ENCOUNTER 2023-11-09 14:30 | Emergency (ER) | payer MEDICARE, MEDICAID ==
[~2023-11-09] VITALS: Ht 160 cm; Wt 68.7 kg
[2023-11-09 17:01] LABS: HEMATOCRIT 38.1 % (42.0-52.0); HEMOGLOBIN 12.9 g/dl (13.5-17.5); MEAN CORPUSCULAR HEMOGLOBIN 30.8 pg (27.0-33.0); MEAN CORPUSCULAR HGB CONC 33.9 g/dl (32.0-36.5); MEAN CORPUSCULAR VOLUME 90.9 fl (80.0-96.0); PLATELET COUNT, AUTOMATED 148 10^3/uL (150-450); RED BLOOD COUNT 4.19 10^6/uL (4.30-6.10); WHITE BLOOD COUNT 8.7 10^3/uL (4.0-10.0)
[2023-11-09 17:20] LABS: BLOOD UREA NITROGEN 14 MG/DL (9-23); CALCIUM LEVEL 8.4 MG/DL (8.3-10.6); CARBON DIOXIDE LEVEL 28 MMOL/L (20-31); CHLORIDE LEVEL 103 MMOL/L (98-107); CREATININE FOR GFR 0.92 MG/DL (0.70-1.30); GLOMERULAR FILTRATION RATE > 60.0 (>49); GLUCOSE, FASTING 163 MG/DL (74-106); POTASSIUM SERUM 4.7 MMOL/L (3.5-5.1); SODIUM LEVEL 135 MMOL/L (136-145)
[2023-11-09] MEDS: IPRATROPIUM 0.5MG/ALBUTEROL 2.5MG INH SOL UD 3ML (DUONEB) NEB ONE (18:02)
[2023-11-09] MEDS: ONDANSETRON 4MG 2ML VIAL IV ONE (20:20)
[2023-11-09] MEDS: MORPHINE 4 MG/ML 1ML VIAL IV PRN (20:21)
[2023-11-09] MEDS ORDERED: ISOVUE-370 76% 100ML VIAL As Ordered ONE (21:35)
[2023-11-09 22:12] LABS: LIPASE 19 U/L (12-53)
[2023-11-09 22:14] LABS: ALBUMIN 3.2 G/DL (3.2-5.2); ALKALINE PHOSPHATASE 72 U/L (46-116); ALT/SGPT 18 U/L (7.0-40); AST/SGOT 21 U/L (<34); BILIRUBIN,DIRECT 0.2 MG/DL (<0.4); BILIRUBIN,TOTAL 0.7 MG/DL (0.3-1.2)
[2023-11-10] MEDS: IPRATROPIUM 0.5MG/ALBUTEROL 2.5MG INH SOL UD 3ML (DUONEB) NEB ONE ×2 (00:04→04:52)
[2023-11-10] MEDS: PERCOCET 5MG/325MG TAB PO ONE (00:07)
[2023-11-10] MEDS: PERCOCET 5MG/325MG TAB PO PRN (05:47)
[2023-11-10 07:23] VITALS: BP 108/70; TEMP 97.8; O2SAT 95
== END 2023-11-10 07:33 | disposition short-term general hospital (02) ==
LOC: EDBD 14:30 → M ED 14:30
DX: M48.02 Spinal stenosis, cervical region (principal); R29.6 Repeated falls; N28.1 Cyst of kidney, acquired; M51.27 Other intervertebral disc displacement, lumbosacral region; M51.26 Other intervertebral disc displacement, lumbar region; M25.78 Osteophyte, vertebrae; K57.30 Diverticulosis of large intestine without perforation or abscess without bleeding; K59.00 Constipation, unspecified; E11.9 Type 2 diabetes mellitus without complications; J44.9 Chronic obstructive pulmonary disease, unspecified; Z87.891 Personal history of nicotine dependence; Z79.52 Long term (current) use of systemic steroids; Z79.02 Long term (current) use of antithrombotics/antiplatelets; Z79.899 Other long term (current) drug therapy; Z79.4 Long term (current) use of insulin
CPT/HCPCS: 72141; 72148; 74177; 80048; 80076; 83690; 85027; 94640; 96374; 96375; 99285; J2405; Q9967

== ENCOUNTER 2024-01-15 20:46 | Emergency (ER) | payer MEDICAID, MEDICARE ==
[~2024-01-15] VITALS: Ht 157.5 cm; Wt 61.2 kg
[~2024-01-15 20:46] MED LIST changes: -SIME180C25 PO; +SIME1CAP4 PO
[2024-01-15] MEDS: tiZANidine 4 MG TAB PO ONE (21:55)
[2024-01-15] MEDS: oxyCODONE 5MG TAB PO ONE (22:19)
[2024-01-15 22:36] LABS: ABG BASE EXCESS 3.1 (-2.0-2.0); ABG HCO3 27.6 MMOL/L (22.0-26.0); ABG O2 SATURATION 96.5 % (95.0-99.0); ABG PARTIAL PRESSURE CO2 42.2 mmHg (35.0-45.0); ABG PARTIAL PRESSURE O2 88.1 mmHg (75.0-100.0); ABG STANDARD HCO3 27.2 MMOL/L. (22.0-26.0); ABG TOTAL CO2 28.9 MMOL/L (23.0-31.0); ABG pH (ARTERIAL) 7.434 UNITS (7.350-7.450)
[2024-01-15 22:37] LABS: BASO % 0.4 % (0.0-1.0); EOS # 0.3 10^3/uL (0.0-0.5); EOS % 2.8 % (0.0-3.0); HEMATOCRIT 36.7 % (42.0-52.0); HEMOGLOBIN 12.4 g/dl (13.5-17.5); LYMPH # 0.8 10^3/uL (1.5-5.0); LYMPH % 8.7 % (24.0-44.0); MEAN CORPUSCULAR HEMOGLOBIN 29.3 pg (27.0-33.0); MEAN CORPUSCULAR HGB CONC 33.8 g/dl (32.0-36.5); MEAN CORPUSCULAR VOLUME 86.8 fl (80.0-96.0); MONO # 0.9 10^3/uL (0.0-0.8); MONO % 9.1 % (2.0-8.0); NEUTROPHILS # 7.4 10^3/uL (1.5-8.5); NEUTROPHILS % 78.8 % (36.0-66.0); PLATELET COUNT, AUTOMATED 231 10^3/uL (150-450); RED BLOOD COUNT 4.23 10^6/uL (4.30-6.10); WHITE BLOOD COUNT 9.4 10^3/uL (4.0-10.0)
[2024-01-15 23:06] LABS: AMPHETAMINES LEVEL URINE NEGATIVE (NEGATIVE); BARBITURATES URINE NEGATIVE (NEGATIVE); COCAINE METABOLITE URINE NEGATIVE (NEGATIVE)
[2024-01-15 23:07] LABS: METHADONE URINE NEGATIVE (NEGATIVE); OPIATES URINE NEGATIVE (NEGATIVE); PHENCYCLIDINE URINE NEGATIVE (NEGATIVE)
[2024-01-15 23:08] LABS: CK-MB VALUE MASS 3.9 NG/ML (<3.6)
[2024-01-15 23:09] LABS: ETHYL ALCOHOL (ETHANOL) < 0.003 % (0.000-0.010)
[2024-01-15 23:10] LABS: CPK CREATINE PHOSPHOKINASE 198 U/L (46-171); MB/CK RELATIVE INDEX 1.96 (< OR =4)
[2024-01-15 23:11] LABS: SALICYLATE LEVEL < 3.0 MG/DL (<30)
[2024-01-15 23:12] LABS: BENZODIAZEPINES URINE POSITIVE (NEGATIVE); CANNABINOIDS URINE POSITIVE (NEGATIVE)
[2024-01-15 23:15] LABS: ALBUMIN 3.5 G/DL (3.2-5.2); ALKALINE PHOSPHATASE 143 U/L (46-116); ALT/SGPT 13 U/L (7.0-40); AST/SGOT 18 U/L (<34); BILIRUBIN,DIRECT 0.2 MG/DL (<0.4); BILIRUBIN,TOTAL 0.4 MG/DL (0.3-1.2); BLOOD UREA NITROGEN 21 MG/DL (9-23); CALCIUM LEVEL 10.4 MG/DL (8.3-10.6); CARBON DIOXIDE LEVEL 28 MMOL/L (20-31); CHLORIDE LEVEL 103 MMOL/L (98-107); CREATININE FOR GFR 0.66 MG/DL (0.70-1.30); GLOMERULAR FILTRATION RATE > 60.0 (>49); GLUCOSE, FASTING 95 MG/DL (74-106); OSMOLALITY SERUM 293 MOSM/KG (280-301); POTASSIUM SERUM 4.3 MMOL/L (3.5-5.1); SODIUM LEVEL 139 MMOL/L (136-145)
[2024-01-16 00:41] LABS: CK-MB VALUE MASS 3.1 NG/ML (<3.6)
[2024-01-16 00:44] LABS: MB/CK RELATIVE INDEX 1.66 (< OR =4)
[2024-01-16] MEDS ORDERED: ISOVUE-370 76% 100ML VIAL As Ordered ONE (00:54)
[2024-01-16 01:27] VITALS: TEMP 98.1
[2024-01-16 03:37] VITALS: BP 136/68; O2SAT 93
== END 2024-01-16 05:41 | disposition home or self-care (01) ==
LOC: M ED 20:46
DX: F11.13 Opioid abuse with withdrawal (principal); R00.0 Tachycardia, unspecified; R91.1 Solitary pulmonary nodule; J43.9 Emphysema, unspecified; E11.9 Type 2 diabetes mellitus without complications; J44.9 Chronic obstructive pulmonary disease, unspecified; Z86.79 Personal history of other diseases of the circulatory system; Z87.891 Personal history of nicotine dependence; Z79.52 Long term (current) use of systemic steroids; Z79.02 Long term (current) use of antithrombotics/antiplatelets; Z79.4 Long term (current) use of insulin; Z79.899 Other long term (current) drug therapy
CPT/HCPCS: 36600; 70450; 71045; 71275; 80048; 80076; 80143; 80307; 81001; 82077; 82140; 82550; 82553; 82803; 83605; 83930; 84443; 84484; 85025; 93005; 93041; 94760; 99285; Q9967

== ENCOUNTER → 2024-01-25 | Outpatient (CLI) | payer MEDICARE | LOC: M RAD 09:51 | PROVIDERS: ATTEND Neurological Surgery | DX: T84.296A Other mechanical complication of internal fixation device of vertebrae, initial encounter (principal); M50.021 Cervical disc disorder at C4-C5 level with myelopathy ==

== ENCOUNTER → 2024-01-25 | Outpatient (CLI) | payer MEDICARE ==
[2024-01-25 11:50] LABS: APPEARANCE, URINE CLEAR (CLEAR); BACTERIA, URINE AUTO NEGATIVE (NEGATIVE); BILIRUBIN, URINE AUTO NEGATIVE (NEGATIVE); BLOOD, URINE BLOOD NEGATIVE (NEGATIVE); COLOR, URINE YELLOW (YELLOW); GLUCOSE, URINE (UA) AUTO NEGATIVE (NEGATIVE); KETONE, URINE AUTO NEGATIVE (NEGATIVE); LEUKOCYTE ESTERASE, URINE AUTO NEGATIVE (NEGATIVE); NITRITE, URINE AUTO NEGATIVE (NEGATIVE); PROTEIN, URINE AUTO NEGATIVE (NEGATIVE); RBC, URINE AUTO 0 /HPF (0-3); SPECIFIC GRAVITY URINE AUTO 1.018 (1.002-1.035); SQUAMOUS EPITHELIAL CELL UR AU 0 /HPF (0-6); UROBILINOGEN, URINE AUTO 0.2 mg/dL (0.0-2.0); WBC, URINE AUTO 1 /HPF (0-3)
[2024-01-25 12:07] LABS: BASO # 0.1 10^3/uL (0.0-0.2); BASO % 0.7 % (0.0-1.0); EOS # 0.3 10^3/uL (0.0-0.5); EOS % 3.9 % (0.0-3.0); HEMATOCRIT 40.1 % (42.0-52.0); HEMOGLOBIN 13.1 g/dl (13.5-17.5); LYMPH # 0.8 10^3/uL (1.5-5.0); LYMPH % 10.4 % (24.0-44.0); MEAN CORPUSCULAR HEMOGLOBIN 28.4 pg (27.0-33.0); MEAN CORPUSCULAR HGB CONC 32.7 g/dl (32.0-36.5); MEAN CORPUSCULAR VOLUME 86.8 fl (80.0-96.0); MONO # 0.7 10^3/uL (0.0-0.8); MONO % 8.9 % (2.0-8.0); NEUTROPHILS # 5.8 10^3/uL (1.5-8.5); NEUTROPHILS % 75.8 % (36.0-66.0); PLATELET COUNT, AUTOMATED 244 10^3/uL (150-450); RED BLOOD COUNT 4.62 10^6/uL (4.30-6.10); WHITE BLOOD COUNT 7.6 10^3/uL (4.0-10.0)
[2024-01-25 12:21] LABS: ALBUMIN 3.3 G/DL (3.2-5.2); ALKALINE PHOSPHATASE 133 U/L (40-129); ALT/SGPT 10 U/L (7.0-40); AST/SGOT 9 U/L (<34); BILIRUBIN,TOTAL 0.3 MG/DL (0.3-1.2); BLOOD UREA NITROGEN 25 MG/DL (9-23); CALCIUM LEVEL 10.8 MG/DL (8.3-10.6); CARBON DIOXIDE LEVEL 31 MMOL/L (20-31); CHLORIDE LEVEL 101 MMOL/L (98-107); CHOLESTEROL LEVEL 196 MG/DL (<200); CHOLESTEROL RISK RATIO 5.52 (<5); CREATININE FOR GFR 0.72 MG/DL (0.70-1.30); FERRITIN 80.3 NG/ML (10.5-307.3); FOLATE 14.8 NG/ML (>5.4); FREE T4 1.08 NG/DL (0.89-1.76); GLOMERULAR FILTRATION RATE > 60.0 (>49); GLUCOSE, FASTING 123 MG/DL (74-106); HDL CHOLESTEROL 35.5 MG/DL (>40); IRON (FE) 55 UG/DL (65-175); LDL CHOLESTEROL 126.1 MG/DL (<100); NON-HDL-C 160.5 MG/DL; PERCENT SATURATION 20.1 % (19.7-50.0); POTASSIUM SERUM 4.3 MMOL/L (3.5-5.1); SODIUM LEVEL 136 MMOL/L (136-145); THYROID STIMULATING HORMONE 2.425 uIU/ML (0.55-4.78); TOTAL IRON BINDING CAPACITY 273 UG/DL (250-425); TRIGLYCERIDES LEVEL 172 MG/DL (<150)
[2024-01-25 12:23] LABS: VITAMIN B12 LEVEL 371 PG/ML (211-911)
[2024-01-25 12:51] LABS: HEMOGLOBIN A1c 5.5 % (4.0-6.0)
== END ==
LOC: M RAD 09:37
PROVIDERS: ATTEND Internal Medicine
DX: J18.9 Pneumonia, unspecified organism (principal); D53.9 Nutritional anemia, unspecified; E11.65 Type 2 diabetes mellitus with hyperglycemia; I50.9 Heart failure, unspecified

== ENCOUNTER → 2024-07-31 | Outpatient (CLI) | payer MEDICARE, MEDICAID ==
[~2024-07-31] MED LIST changes: -ADV250INH INH; -ADV500INH INH; +ADVA1AER10 INH; +ADVA1AER9 INH; -CYCL5TAB PO; +CYCL5TAB4 PO
== END ==
LOC: M RAD 13:15
PROVIDERS: ATTEND Nurse Practitioner Family
DX: R39.12 Poor urinary stream (principal); M50.021 Cervical disc disorder at C4-C5 level with myelopathy; R93.89 Abnormal findings on diagnostic imaging of other specified body structures

== ENCOUNTER → 2024-08-01 | Outpatient (CLI) | payer MEDICARE, MEDICAID | LOC: M RAD 13:39 | PROVIDERS: ATTEND Internal Medicine Pulmonary Disease | DX: R91.8 Other nonspecific abnormal finding of lung field (principal); J98.2 Interstitial emphysema; E11.9 Type 2 diabetes mellitus without complications; G60.9 Hereditary and idiopathic neuropathy, unspecified; E03.9 Hypothyroidism, unspecified; D51.9 Vitamin B12 deficiency anemia, unspecified; E51.9 Thiamine deficiency, unspecified; E53.1 Pyridoxine deficiency; E56.0 Deficiency of vitamin E ==

== ENCOUNTER → 2024-08-01 | Outpatient (CLI) | payer MEDICARE, MEDICAID ==
[2024-08-01 15:10] LABS: FOLATE > 24.0 NG/ML (>5.4); THYROID STIMULATING HORMONE 0.804 uIU/ML (0.55-4.78)
[2024-08-01 15:11] LABS: VITAMIN B12 LEVEL 478 PG/ML (211-911)
[2024-08-01 15:19] LABS: HEMOGLOBIN A1c 6.5 % (4.0-6.0)
[2024-08-02 17:17] LABS: T P ELECTROPHORESIS SO 6.4 g/dL (6.1-8.1)
[2024-08-05 14:47] LABS: VITAMIN B6,PYRIDOXAL PHOSPHATE 9.6 ng/mL (2.1-21.7)
== END ==
LOC: M LAB 13:41
PROVIDERS: ATTEND Psychiatry & Neurology Neurology
DX: R91.8 Other nonspecific abnormal finding of lung field (principal); E11.9 Type 2 diabetes mellitus without complications; G60.9 Hereditary and idiopathic neuropathy, unspecified; E03.9 Hypothyroidism, unspecified; D51.9 Vitamin B12 deficiency anemia, unspecified; E51.9 Thiamine deficiency, unspecified; E53.1 Pyridoxine deficiency; E56.0 Deficiency of vitamin E

== ENCOUNTER → 2024-10-29 | Outpatient (CLI) | payer MEDICARE, MEDICAID ==
[~2024-10-29] MED LIST changes: +LORA-1164 PO; -LORA-622 PO
[2024-10-29 12:19] LABS: BASO # 0.0 10^3/uL (0.0-0.2); BASO % 0.3 % (0.0-1.0); EOS # 0.0 10^3/uL (0.0-0.5); EOS % 0.3 % (0.0-3.0); LYMPH # 1.0 10^3/uL (1.5-5.0); LYMPH % 13.1 % (24.0-44.0); MONO # 0.4 10^3/uL (0.0-0.8); MONO % 5.8 % (2.0-8.0); NEUTROPHILS # 6.0 10^3/uL (1.5-8.5); NEUTROPHILS % 79.6 % (36.0-66.0); PLATELET COUNT, AUTOMATED 166 10^3/uL (150-450)
[2024-10-29 12:25] LABS: ERYTHROCYTE SEDIMENTATION RATE 18 mm/hr (0-20)
[2024-10-29 12:34] LABS: APPEARANCE, URINE CLEAR (CLEAR); BACTERIA, URINE AUTO NEGATIVE (NEGATIVE); BILIRUBIN, URINE AUTO NEGATIVE (NEGATIVE); BLOOD, URINE BLOOD NEGATIVE (NEGATIVE); GLUCOSE, URINE (UA) AUTO 1+ mg/dL (NEGATIVE); KETONE, URINE AUTO NEGATIVE (NEGATIVE); LEUKOCYTE ESTERASE, URINE AUTO NEGATIVE (NEGATIVE); MUCUS, URINE SMALL (NEGATIVE); NITRITE, URINE AUTO NEGATIVE (NEGATIVE); PROTEIN, URINE AUTO NEGATIVE (NEGATIVE); RBC, URINE AUTO 0 /HPF (0-3); SPECIFIC GRAVITY URINE AUTO 1.023 (1.002-1.035); SQUAMOUS EPITHELIAL CELL UR AU 0 /HPF (0-6); UROBILINOGEN, URINE AUTO 0.2 mg/dL (0.0-2.0); WBC, URINE AUTO 1 /HPF (0-3)
[2024-10-29 12:34] LABS: ESTIMATED AVERAGE GLUCOSE 171.0 MG/DL (60-110)
[2024-10-29 12:47] LABS: ALT/SGPT 18.0 U/L (7.0-40); AST/SGOT 13.0 U/L (<34); CALCIUM LEVEL 8.9 MG/DL (8.3-10.6); CARBON DIOXIDE LEVEL 30.0 MMOL/L (20-31); CHLORIDE LEVEL 97.0 MMOL/L (98-107); CHOLESTEROL LEVEL 212.0 MG/DL (<200); CHOLESTEROL RISK RATIO 3.69 (<5); CPK CREATINE PHOSPHOKINASE 60.0 U/L (46-171); CREATININE FOR GFR 1.01 MG/DL (0.70-1.30); GLOMERULAR FILTRATION RATE 80.0 (>42); LDL CHOLESTEROL 130.0 MG/DL (<100); NON-HDL-C 154.6 MG/DL; POTASSIUM SERUM 4.0 MMOL/L (3.5-5.1); SODIUM LEVEL 139.0 MMOL/L (136-145); TRIGLYCERIDES LEVEL 123.0 MG/DL (<150)
== END ==
LOC: M LAB 11:21
PROVIDERS: ATTEND Internal Medicine
DX: E11.9 Type 2 diabetes mellitus without complications (principal)

== ENCOUNTER → 2024-11-28 | Outpatient (CLI) | payer MEDICARE ==
[~2024-11-28] MED LIST changes: +DILT120C31 PO; +ENSI3AMP NEB; +MAGN400T33 PO; +ROPI0.5T33 PO; +SENN-186 PO; +TAMS1CAP17 PO; +TERI2.4P SQ
== END ==
LOC: M SLEEP 20:00
PROVIDERS: ATTEND Internal Medicine Pulmonary Disease
DX: G47.33 Obstructive sleep apnea (adult) (pediatric) (principal)

== ENCOUNTER 2024-12-05 14:35 | Inpatient (IN) | payer MEDICARE ==
[~2024-12-05] VITALS: Ht 157.5 cm; Wt 65.0 kg
[~2024-12-05 14:35] MED LIST changes: -DILT120C31 PO; -ENSI3AMP NEB; -MAGN400T33 PO; -ROPI0.5T33 PO; -SENN-186 PO; -TAMS1CAP17 PO; -TERI2.4P SQ
[2024-12-05 15:11] LABS: VENOUS BASE EXCESS 1.4 (-2.0-2.0); VENOUS HCO3 26.8 MMOL/L (23.0-27.0); VENOUS O2 SATURATION 86.9 % (60.0-80.0); VENOUS PARTIAL PRESSURE CO2 45.3 mmHg (38.0-50.0); VENOUS PARTIAL PRESSURE O2 52.7 mmHg (30.0-50.0); VENOUS PH 7.390 UNITS (7.330-7.430); VENOUS STANDARD HCO3 25.5 MMOL/L; VENOUS TOTAL CO2 28.2 MMOL/L (24.0-28.0)
[2024-12-05] MEDS: IPRATROPIUM 0.5 MG/ALBUTEROL 2.5 MG INH SOL UD 3 ML NEB PRN (15:36)
[2024-12-05 15:39] LABS: PLATELET COUNT, AUTOMATED 210 10^3/uL (150-450)
[2024-12-05 15:50] LABS: ALT/SGPT 18 U/L (7.0-40); AST/SGOT 14 U/L (<34); CALCIUM LEVEL 8.9 MG/DL (8.3-10.6); CARBON DIOXIDE LEVEL 32 MMOL/L (20-31); CHLORIDE LEVEL 98 MMOL/L (98-107); CREATININE FOR GFR 0.90 MG/DL (0.70-1.30); GLOMERULAR FILTRATION RATE > 90.0 (>42); POTASSIUM SERUM 4.3 MMOL/L (3.5-5.1); SODIUM LEVEL 139 MMOL/L (136-145)
[2024-12-05 16:26] LABS: ATYPICAL LYMPH 7 % (0-5); LYMPHOCYTES 6 % (16-44); MONOCYTES 3 % (0-5); NEUTROPHILS 81 % (28-66); PLASMA CELL 1 % (0-0)
[2024-12-05 16:27] LABS: PLATELET ESTIMATE NORMAL (NORMAL)
[2024-12-05] MEDS: cefTRIAXone SOD 1 GM in DEXTROSE 5% (D5W) ADV/MINI-BAG 50 ML IV ONE (17:07)
[2024-12-05] MEDS ORDERED: ROPI0.5T33 PO (17:17)
[2024-12-05] MEDS ORDERED: DILT120C31 PO (17:17)
[2024-12-05] MEDS ORDERED: MAGN400T33 PO (17:17)
[2024-12-05] MEDS ORDERED: TAMS1CAP17 PO (17:17)
[2024-12-05] MEDS ORDERED: SENN-186 PO (17:17)
[2024-12-05] MEDS ORDERED: ENSI3AMP NEB (17:17)
[2024-12-05] MEDS ORDERED: TERI2.4P SQ (17:17)
[2024-12-05] MEDS ORDERED: HOME MED LIST COMPLETE! XX SCH (17:20)
[2024-12-05] MEDS ORDERED: ACETAMINOPHEN 325 MG TAB PO PRN (17:25)
[2024-12-05] MEDS ORDERED: MOM 30 ML SUSPENSION UDC PO PRN (17:25)
[2024-12-05] MEDS ORDERED: DEXTROSE 50% 50 ML SYRINGE IV PRN (17:30)
[2024-12-05] MEDS ORDERED: GLUCAGON INJ 1 MG VIAL SC PRN (17:30)
[2024-12-05] MEDS ORDERED: GLUCOSE 4 GM CHEW PO PRN (17:30)
[2024-12-05] MEDS: INSULIN LISPRO (NovoLOG) PER UNIT SC SCH ×2 (17:30→21:22)
[2024-12-05] MEDS ORDERED: ISOVUE-370 76% 100 ML VIAL As Ordered ONE (17:37)
[2024-12-05] MEDS: guaiFENesin DM *SUGAR FREE* 5ML**DIABETIC TUSSIN DM PO ONE (19:50)
[2024-12-05] MEDS: guaiFENesin ER TABLET 600 MG TAB PO SCH (19:50)
[2024-12-05] MEDS: GLYCOPYRROLATE INJ 0.2 MG/ML 2 ML VIAL NEB SCH (20:08)
[2024-12-05] MEDS: BUDESONIDE 0.5 MG/2 ML INHALATION SUSPENSION NEB SCH (20:08)
[2024-12-05] MEDS ORDERED: KETOROLAC 30 MG/ML 1 ML VIAL IV PRN (21:05)
[2024-12-05] MEDS: SENNA 8.6 MG TAB PO SCH (23:19)
[2024-12-05] MEDS: TAMSULOSIN 0.4 MG CAP PO SCH (23:19)
[2024-12-05] MEDS: LORATADINE 10 MG TAB PO SCH (23:20)
[2024-12-05] MEDS: dilTIAZem 120 MG **CD** CAPSULE PO SCH (23:20)
[2024-12-05] MEDS: rOPINIRole 0.25 MG TAB PO SCH (23:22)
[2024-12-06] MEDS: IPRATROPIUM 0.5 MG/ALBUTEROL 2.5 MG INH SOL UD 3 ML NEB PRN (00:10)
[2024-12-06 08:04] LABS: BASO # 0.0 10^3/uL (0.0-0.2); BASO % 0.4 % (0.0-1.0); EOS # 0.0 10^3/uL (0.0-0.5); EOS % 0.0 % (0.0-3.0); LYMPH # 0.3 10^3/uL (1.5-5.0); LYMPH % 4.8 % (24.0-44.0); MONO # 0.1 10^3/uL (0.0-0.8); MONO % 1.8 % (2.0-8.0); NEUTROPHILS # 6.3 10^3/uL (1.5-8.5); NEUTROPHILS % 88.4 % (36.0-66.0); PLATELET COUNT, AUTOMATED 206 10^3/uL (150-450)
[2024-12-06] MEDS: ADVAIR HFA 230/21 MCG INHALER INH SCH (08:12)
[2024-12-06] MEDS: TIOTROPIUM BROM 2.5MCG/ACTUATION 4GM INH INH SCH (08:12)
[2024-12-06 08:31] LABS: CALCIUM LEVEL 8.6 MG/DL (8.3-10.6); CARBON DIOXIDE LEVEL 31.0 MMOL/L (20-31); CHLORIDE LEVEL 97.0 MMOL/L (98-107); CREATININE FOR GFR 0.95 MG/DL (0.70-1.30); GLOMERULAR FILTRATION RATE 86.1 (>42); MAGNESIUM LEVEL 2.2 MG/DL (1.8-2.4); POTASSIUM SERUM 4.6 MMOL/L (3.5-5.1); SODIUM LEVEL 137.0 MMOL/L (136-145)
[2024-12-06] MEDS: MAGNESIUM OXIDE 400 MG TAB PO SCH (09:23)
[2024-12-06] MEDS: FUROSEMIDE 40 MG TAB PO SCH (09:23)
[2024-12-06] MEDS: HumuLIN R (REGULAR) INSULIN (NovoLIN R) **100 U/ML** PER UNIT IV PRN (09:23)
[2024-12-06] MEDS: SPIRONOLACTONE 50 MG TAB PO SCH (09:24)
[2024-12-06] MEDS: SERTRALINE 100 MG TAB PO SCH (09:24)
[2024-12-06] MEDS: PANTOPRAZOLE 40MG TAB PO SCH (09:24)
[2024-12-06] MEDS: ENOXAPARIN 40 MG/0.4 ML SYRINGE (J1650 PER 10MG) SC SCH (09:25)
[2024-12-06 11:15] VITALS: BP 128/90; TEMP 98.1; O2SAT 95
[2024-12-06] MEDS: cefTRIAXone SOD 1 GM in DEXTROSE 5% (D5W) ADV/MINI-BAG 50 ML IV SCH (17:37)
[2024-12-06] MEDS: INSULIN LISPRO (NovoLOG) PER UNIT SC SCH (17:40)
[2024-12-06 20:49] VITALS: BP 140/82; TEMP 98.1; O2SAT 95
[2024-12-07 04:22] VITALS: BP 128/74; TEMP 97.7; O2SAT 95
[2024-12-07 09:11] LABS: CALCIUM LEVEL 8.4 MG/DL (8.3-10.6); CARBON DIOXIDE LEVEL 30 MMOL/L (20-31); CHLORIDE LEVEL 99 MMOL/L (98-107); CREATININE FOR GFR 0.87 MG/DL (0.70-1.30); GLOMERULAR FILTRATION RATE > 90.0 (>42); MAGNESIUM LEVEL 2.2 MG/DL (1.8-2.4); POTASSIUM SERUM 4.5 MMOL/L (3.5-5.1); SODIUM LEVEL 138 MMOL/L (136-145)
[2024-12-07 12:00] VITALS: BP 160/81; TEMP 98.1; O2SAT 94
[2024-12-07] MEDS: ACETYLCYSTEINE 20% 4 ML VIAL (200 MG/ML) INH SCH (20:01)
[2024-12-07] MEDS: ALBUTEROL SULFATE 2.5 MG/0.5 ML INH CONCENTRATE NEB SOLN NEB SCH (20:03)
[2024-12-07 20:13] VITALS: BP 145/87; TEMP 97.9; O2SAT 98
[2024-12-07 20:15] VITALS: BP 143/71; TEMP 97.9; O2SAT 97
[2024-12-08 02:27] LABS: T P ELECTROPHORESIS SO 6.8 g/dL (6.1-8.1)
[2024-12-08 03:51] VITALS: BP 141/71; TEMP 98.1; O2SAT 96
[2024-12-08 08:36] LABS: CALCIUM LEVEL 8.0 MG/DL (8.3-10.6); CARBON DIOXIDE LEVEL 29 MMOL/L (20-31); CHLORIDE LEVEL 99 MMOL/L (98-107); CREATININE FOR GFR 0.89 MG/DL (0.70-1.30); GLOMERULAR FILTRATION RATE > 90.0 (>42); MAGNESIUM LEVEL 2.2 MG/DL (1.8-2.4); POTASSIUM SERUM 4.7 MMOL/L (3.5-5.1); SODIUM LEVEL 138 MMOL/L (136-145)
[2024-12-08 08:57] VITALS: O2SAT 90
[2024-12-08 12:00] VITALS: BP 135/86; TEMP 98.1; O2SAT 92
[2024-12-08] MEDS: predniSONE 20 MG TAB PO SCH (14:27)
[2024-12-08] MEDS: OHTUVAYRE INH SCH (19:26)
[2024-12-08 19:53] VITALS: BP 158/80; TEMP 98.1; O2SAT 93
[2024-12-09 03:45] VITALS: BP 125/71; TEMP 97.7; O2SAT 93
[2024-12-09 07:15] LABS: CALCIUM LEVEL 8.0 MG/DL (8.3-10.6); CARBON DIOXIDE LEVEL 30 MMOL/L (20-31); CHLORIDE LEVEL 98 MMOL/L (98-107); CREATININE FOR GFR 0.86 MG/DL (0.70-1.30); GLOMERULAR FILTRATION RATE > 90.0 (>42); MAGNESIUM LEVEL 2.3 MG/DL (1.8-2.4); POTASSIUM SERUM 4.6 MMOL/L (3.5-5.1); SODIUM LEVEL 139 MMOL/L (136-145)
[2024-12-09 07:25] VITALS: BP_SYST 154; BP_SYST 157; BP_DIAS 79; TEMP 97.9; TEMP 98.4; O2SAT 91
[2024-12-09 12:16] LABS: PROTEIN CREATININE RATIO 206 mg/g creat (25-148); T PROTEIN CREATININE RATIO 0.206 (0.025-0.148); UPEP CREATININE 68 mg/dL (20-320); UPEP TOTAL PROTEIN 14 mg/dL (5-25)
[2024-12-09 20:14] VITALS: BP 171/99; TEMP 98.8; O2SAT 92
[2024-12-10 03:06] VITALS: TEMP 98.2; O2SAT 96
[2024-12-10 05:53] LABS: UPEP ALBUMIN 24 %; URINE ALPHA 1 GLOBULIN 19 %; URINE ALPHA 2 GLOBULIN 26 %; URINE BETA GLOBULIN 16 %; URINE GAMMA GLOBULIN 16 %
[2024-12-10 06:42] LABS: CALCIUM LEVEL 8.0 MG/DL (8.3-10.6); CARBON DIOXIDE LEVEL 29 MMOL/L (20-31); CHLORIDE LEVEL 101 MMOL/L (98-107); CREATININE FOR GFR 0.83 MG/DL (0.70-1.30); GLOMERULAR FILTRATION RATE > 90.0 (>42); MAGNESIUM LEVEL 2.2 MG/DL (1.8-2.4); POTASSIUM SERUM 4.2 MMOL/L (3.5-5.1); SODIUM LEVEL 139 MMOL/L (136-145)
[2024-12-10 06:53] LABS: ALBUMIN SPEP 3.5 g/dL (3.8-4.8); ALPHA-1-GLOBULINS SO 0.5 g/dL (0.2-0.3); ALPHA-2-GLOBULINS SO 1.4 g/dL (0.5-0.9); BETA 2 GLOBULIN 0.4 g/dL (0.2-0.5); BETA-GLOBULIN SO 0.4 g/dL (0.4-0.6); GAMMA GLOBULINS SO 0.6 g/dL (0.8-1.7)
[2024-12-10 08:54] LABS: PLATELET COUNT, AUTOMATED 180 10^3/uL (150-450)
[2024-12-10] MEDS: predniSONE 20 MG TAB PO SCH ×2 (09:44→10:32)
[2024-12-10] MEDS: ALPRAZolam 0.5 MG TAB PO PRN (09:57)
[2024-12-10 11:45] VITALS: BP 166/92; TEMP 97.9; O2SAT 92
[2024-12-10] MEDS: AZITHROMYCIN 250 MG TABLET PO SCH (12:40)
[2024-12-10] MEDS: FUROSEMIDE 40 MG/4 ML VIAL IV ONE (12:41)
[2024-12-10] MEDS: CEFEPIME HCL 2 GM in DEXTROSE 5% (D5W) ADV/MINI-BAG 50 ML IV SCH (13:58)
[2024-12-10] MEDS: GLYCOPYRROLATE INJ 0.2 MG/ML 2 ML VIAL NEB ONE (14:46)
[2024-12-10] MEDS: BUDESONIDE 0.5 MG/2 ML INHALATION SUSPENSION NEB SCH (19:18)
[2024-12-10] MEDS: GLYCOPYRROLATE INJ 0.2 MG/ML 2 ML VIAL NEB SCH (19:19)
[2024-12-10 20:33] VITALS: BP 149/84; TEMP 98.3; O2SAT 92
[2024-12-10] MEDS: LanTUS (INSULIN GLARGINE INJ) 1 UNITS/0.01 ML SC SCH (21:38)
[2024-12-10 22:23] LABS: MYCOPLASMA PNEUMONIAE IGG 1.38 (<=0.90); MYCOPLASMA PNEUMONIAE IGM 108.0 U/mL (<770)
[2024-12-11 00:50] VITALS: O2SAT 92
[2024-12-11 02:18] LABS: URINE STREP PNEUMONIAE ANTIGEN Not Detected (Not Detected)
[2024-12-11 04:00] VITALS: BP 112/82; TEMP 98.2; O2SAT 94
[2024-12-11 06:17] LABS: PLATELET COUNT, AUTOMATED 158 10^3/uL (150-450)
[2024-12-11 06:44] LABS: ALT/SGPT 15.0 U/L (7.0-40); AST/SGOT 9.0 U/L (<34); CALCIUM LEVEL 8.4 MG/DL (8.3-10.6); CARBON DIOXIDE LEVEL 30.0 MMOL/L (20-31); CHLORIDE LEVEL 98.0 MMOL/L (98-107); CREATININE FOR GFR 0.97 MG/DL (0.70-1.30); GLOMERULAR FILTRATION RATE 84.0 (>42); MAGNESIUM LEVEL 2.2 MG/DL (1.8-2.4); PHOSPHORUS LEVEL 2.6 MG/DL (2.4-5.1); POTASSIUM SERUM 3.6 MMOL/L (3.5-5.1); SODIUM LEVEL 136.0 MMOL/L (136-145)
[2024-12-11 07:47] VITALS: O2SAT 91
[2024-12-11] MEDS: FUROSEMIDE 20 MG/2 ML VIAL IV SCH (08:50)
[2024-12-11] MEDS: LanTUS (INSULIN GLARGINE INJ) 1 UNITS/0.01 ML SC SCH (08:51)
[2024-12-11 12:00] VITALS: BP 141/84; TEMP 98.1; O2SAT 91
[2024-12-11 12:13] VITALS: O2SAT 91
[2024-12-11] MEDS: INSULIN LISPRO (NovoLOG) PER UNIT SC SCH (17:30)
[2024-12-11 20:05] VITALS: BP 144/81; TEMP 97.7; O2SAT 93
[2024-12-12 06:02] VITALS: BP 138/73; TEMP 97.5; O2SAT 94
[2024-12-12 07:41] LABS: PLATELET COUNT, AUTOMATED 153 10^3/uL (150-450)
[2024-12-12 08:14] LABS: ALT/SGPT 14.0 U/L (7.0-40); AST/SGOT 11.0 U/L (<34); CALCIUM LEVEL 7.7 MG/DL (8.3-10.6); CARBON DIOXIDE LEVEL 29.0 MMOL/L (20-31); CHLORIDE LEVEL 99.0 MMOL/L (98-107); CREATININE FOR GFR 1.0 MG/DL (0.70-1.30); GLOMERULAR FILTRATION RATE 81.0 (>42); MAGNESIUM LEVEL 2.2 MG/DL (1.8-2.4); POTASSIUM SERUM 4.1 MMOL/L (3.5-5.1); SODIUM LEVEL 131.0 MMOL/L (136-145)
[2024-12-12] MEDS: LanTUS (INSULIN GLARGINE INJ) 1 UNITS/0.01 ML SC SCH (09:07)
[2024-12-12 12:00] VITALS: BP 144/78; TEMP 97.9; O2SAT 92
[2024-12-12 20:55] VITALS: BP 145/80; TEMP 97.9; O2SAT 92
[2024-12-13 04:41] VITALS: BP 130/79; TEMP 97.9; O2SAT 94
[2024-12-13 12:10] LABS: PLATELET COUNT, AUTOMATED 203 10^3/uL (150-450)
[2024-12-13 12:30] VITALS: BP 144/80; TEMP 98.1; O2SAT 95
[2024-12-13 12:44] LABS: ALT/SGPT 17.0 U/L (7.0-40); AST/SGOT 14.0 U/L (<34); CALCIUM LEVEL 8.3 MG/DL (8.3-10.6); CARBON DIOXIDE LEVEL 28.0 MMOL/L (20-31); CHLORIDE LEVEL 100.0 MMOL/L (98-107); CREATININE FOR GFR 0.94 MG/DL (0.70-1.30); GLOMERULAR FILTRATION RATE 87.2 (>42); POTASSIUM SERUM 4.2 MMOL/L (3.5-5.1); SODIUM LEVEL 136.0 MMOL/L (136-145)
[2024-12-13 19:21] VITALS: O2SAT 95
[2024-12-13 21:24] VITALS: BP 129/81; TEMP 97.9; O2SAT 90
[2024-12-14 04:30] VITALS: BP 165/77; TEMP 98.1; O2SAT 94
[2024-12-14] MEDS: ONDANSETRON 4MG TAB PO PRN (04:31)
[2024-12-14 06:33] LABS: PLATELET COUNT, AUTOMATED 176 10^3/uL (150-450)
[2024-12-14 07:03] LABS: ALT/SGPT 15 U/L (7.0-40); AST/SGOT 10 U/L (<34); CALCIUM LEVEL 8.0 MG/DL (8.3-10.6); CARBON DIOXIDE LEVEL 28 MMOL/L (20-31); CHLORIDE LEVEL 102 MMOL/L (98-107); CREATININE FOR GFR 0.82 MG/DL (0.70-1.30); GLOMERULAR FILTRATION RATE > 90.0 (>42); POTASSIUM SERUM 4.1 MMOL/L (3.5-5.1); SODIUM LEVEL 135 MMOL/L (136-145)
[2024-12-14] MEDS ORDERED: PRED10TA2 PO (07:42)
[2024-12-14] MEDS ORDERED: MUCI600T31 PO (07:42)
[2024-12-14 08:28] VITALS: BP 147/76
[2024-12-14] MEDS ORDERED: BACT800T5 PO (08:53)
[2024-12-14 12:04] VITALS: BP 145/75; TEMP 97.9; O2SAT 98
== END 2024-12-14 13:51 | disposition home health service (06) | DRG 194 ==
LOC: EDBD 14:35 → M ED 14:35 → M ED INP 17:21 → M MSPAV 12-06 11:13
PROVIDERS: ADMIT Student in an Organized Health Care Education/Training Program; ATTEND Internal Medicine
DX: J18.9 Pneumonia, unspecified organism (principal); J96.11 Chronic respiratory failure with hypoxia; E87.1 Hypo-osmolality and hyponatremia; J44.0 Chronic obstructive pulmonary disease with (acute) lower respiratory infection; E11.51 Type 2 diabetes mellitus with diabetic peripheral angiopathy without gangrene; I10 Essential (primary) hypertension; K21.9 Gastro-esophageal reflux disease without esophagitis; E11.65 Type 2 diabetes mellitus with hyperglycemia; N40.0 Benign prostatic hyperplasia without lower urinary tract symptoms; M54.2 Cervicalgia; M54.59 Other low back pain; F32.A Depression, unspecified; F41.9 Anxiety disorder, unspecified; G43.909 Migraine, unspecified, not intractable, without status migrainosus; Z98.41 Cataract extraction status, right eye; Z98.42 Cataract extraction status, left eye; Z79.899 Other long term (current) drug therapy; Z79.4 Long term (current) use of insulin; Z79.52 Long term (current) use of systemic steroids; Z88.7 Allergy status to serum and vaccine

== ENCOUNTER → 2025-01-15 | Outpatient (CLI) | payer MEDICARE, MEDICAID ==
[~2025-01-15] MED LIST changes: +ACET20%4ML NEB; +DILT120C31 PO; +ENSI3AMP INH; +MAGN400T33 PO; +ROPI0.5T33 PO; +SENN-186 PO; +TAMS1CAP17 PO; +TERI2.4P SQ
== END ==
LOC: M SLEEP 20:00
PROVIDERS: ATTEND Internal Medicine Pulmonary Disease
DX: G47.33 Obstructive sleep apnea (adult) (pediatric) (principal)

== ENCOUNTER 2025-01-16 14:18 | Inpatient (IN) | payer MEDICARE, OTHER ==
[~2025-01-16] VITALS: Ht 157.5 cm; Wt 59.0 kg
[~2025-01-16 14:18] MED LIST changes: -ACET20%4ML NEB
[2025-01-16] MEDS: IPRATROPIUM 0.5 MG/ALBUTEROL 2.5 MG INH SOL UD 3 ML NEB PRN (14:45)
[2025-01-16 14:46] LABS: ABG BASE EXCESS 4.5 (-2.0-2.0); ABG HCO3 29.9 MMOL/L (22.0-26.0); ABG O2 SATURATION 98.7 % (95.0-99.0); ABG PARTIAL PRESSURE CO2 47.3 mmHg (35.0-45.0); ABG PARTIAL PRESSURE O2 142.7 mmHg (75.0-100.0); ABG STANDARD HCO3 28.5 MMOL/L. (22.0-26.0); ABG TOTAL CO2 31.4 MMOL/L (23.0-31.0); ABG pH (ARTERIAL) 7.419 UNITS (7.350-7.450)
[2025-01-16 14:50] LABS: BASO # 0.0 10^3/uL (0.0-0.2); BASO % 0.1 % (0.0-1.0); EOS # 0.0 10^3/uL (0.0-0.5); EOS % 0.3 % (0.0-3.0); LYMPH # 0.3 10^3/uL (1.5-5.0); LYMPH % 4.1 % (24.0-44.0); MONO # 0.4 10^3/uL (0.0-0.8); MONO % 5.6 % (2.0-8.0); NEUTROPHILS # 6.1 10^3/uL (1.5-8.5); NEUTROPHILS % 89.3 % (36.0-66.0); PLATELET COUNT, AUTOMATED 153 10^3/uL (150-450)
[2025-01-16 15:16] LABS: CPK CREATINE PHOSPHOKINASE 86 U/L (46-171)
[2025-01-16 15:17] LABS: ALT/SGPT 20 U/L (7.0-40); AST/SGOT 18 U/L (<34); CALCIUM LEVEL 8.4 MG/DL (8.3-10.6); CARBON DIOXIDE LEVEL 31 MMOL/L (20-31); CHLORIDE LEVEL 100 MMOL/L (98-107); CK-MB VALUE MASS 4.2 NG/ML (<3.6); CREATININE FOR GFR 0.80 MG/DL (0.70-1.30); GLOMERULAR FILTRATION RATE > 90.0 (>42); MB/CK RELATIVE INDEX 4.88 (< OR =4); POTASSIUM SERUM 4.0 MMOL/L (3.5-5.1); SODIUM LEVEL 140 MMOL/L (136-145)
[2025-01-16 15:21] LABS: THYROXINE (T4) 5.4 UG/DL (4.5-10.9)
[2025-01-16 16:31] LABS: CK-MB VALUE MASS 4.3 NG/ML (<3.6)
[2025-01-16 16:33] LABS: CPK CREATINE PHOSPHOKINASE 81.0 U/L (46-171); MB/CK RELATIVE INDEX 5.3 (< OR =4)
[2025-01-16] MEDS ORDERED: ISOVUE-370 76% 100 ML VIAL As Ordered ONE (17:17)
[2025-01-16 18:37] LABS: CK-MB VALUE MASS 3.6 NG/ML (<3.6)
[2025-01-16 18:39] LABS: CPK CREATINE PHOSPHOKINASE 82.0 U/L (46-171); MB/CK RELATIVE INDEX 4.39 (< OR =4)
[2025-01-16] MEDS ORDERED: ACET20%4ML NEB (19:14)
[2025-01-16] MEDS ORDERED: HOME MED LIST COMPLETE! XX SCH (19:15)
[2025-01-16] MEDS ORDERED: MAALOX 30 ML SUSP *UDC PO PRN (20:55)
[2025-01-16] MEDS: rOPINIRole 0.25 MG TAB PO SCH (21:00)
[2025-01-16] MEDS: DOXYCYCLINE HYCLATE 100 MG in DEXTROSE 5% (D5W) MINI-BAG PLU 100 ML IV SCH (21:31)
[2025-01-16] MEDS: dilTIAZem 120 MG **CD** CAPSULE PO SCH (21:34)
[2025-01-16 22:00] VITALS: BP 171/81; TEMP 98.1; O2SAT 94
[2025-01-16 22:04] VITALS: BP 149/80; O2SAT 94
[2025-01-16] MEDS ORDERED: GLUCAGON INJ 1 MG VIAL SC PRN (22:25)
[2025-01-16] MEDS ORDERED: GLUCOSE 4 GM CHEW PO PRN (22:25)
[2025-01-16] MEDS ORDERED: DEXTROSE 50% 50 ML SYRINGE IV PRN (22:25)
[2025-01-16 22:33] VITALS: BP 121/62; O2SAT 96
[2025-01-16] MEDS: LEVALBUTEROL 1.25 MG 0.5ML CONCENTRATE NEB INH PRN (23:09)
[2025-01-16] MEDS: TAMSULOSIN 0.4 MG CAP PO SCH (23:09)
[2025-01-17] VITALS (26 sets, daily range): BP systolic 101–163; BP diastolic 60–82; TEMP 97.8–99.9; O2SAT 90–98
[2025-01-17] MEDS ORDERED: IPRATROPIUM 0.5 MG/ALBUTEROL 2.5 MG INH SOL UD 3 ML NEB SCH (02:00)
[2025-01-17] MEDS: LEVALBUTEROL 1.25 MG 0.5ML CONCENTRATE NEB INH PRN (02:08)
[2025-01-17 04:51] LABS: PLATELET COUNT, AUTOMATED 154 10^3/uL (150-450)
[2025-01-17 05:14] LABS: ALT/SGPT 19 U/L (7.0-40); AST/SGOT 18 U/L (<34); CALCIUM LEVEL 8.5 MG/DL (8.3-10.6); CARBON DIOXIDE LEVEL 28 MMOL/L (20-31); CHLORIDE LEVEL 100 MMOL/L (98-107); CREATININE FOR GFR 0.90 MG/DL (0.70-1.30); GLOMERULAR FILTRATION RATE > 90.0 (>42); MAGNESIUM LEVEL 2.0 MG/DL (1.8-2.4); POTASSIUM SERUM 4.6 MMOL/L (3.5-5.1); SODIUM LEVEL 139 MMOL/L (136-145)
[2025-01-17] MEDS: SPIRONOLACTONE 50 MG TAB PO SCH (08:23)
[2025-01-17] MEDS: ACETAMINOPHEN 325 MG TAB PO PRN (08:24)
[2025-01-17] MEDS: SERTRALINE 100 MG TAB PO SCH (08:25)
[2025-01-17] MEDS: ALPRAZolam 0.5 MG TAB PO PRN (08:25)
[2025-01-17] MEDS ORDERED: TIOTROPIUM BROM 2.5MCG/ACTUATION 4GM INH INH SCH (08:25)
[2025-01-17] MEDS ORDERED: ADVAIR HFA 230/21 MCG INHALER INH SCH (09:00)
[2025-01-17] MEDS: GLYCOPYRROLATE INJ 0.2 MG/ML 2 ML VIAL NEB SCH (09:06)
[2025-01-17] MEDS: ENOXAPARIN 40 MG/0.4 ML SYRINGE (J1650 PER 10MG) SC SCH (09:18)
[2025-01-17] MEDS: PANTOPRAZOLE 40MG TAB PO SCH (09:18)
[2025-01-17] MEDS: FUROSEMIDE 40 MG TAB PO SCH (09:18)
[2025-01-17] MEDS: ONDANSETRON 4MG ORAL DISINTEGRATING TAB PO ONE (09:38)
[2025-01-17] MEDS: AZITHROMYCIN 250 MG TABLET PO SCH (09:38)
[2025-01-18] VITALS (20 sets, daily range): BP systolic 106–157; BP diastolic 65–88; TEMP 97.7–98.6; O2SAT 90–98
[2025-01-18] MEDS: ONDANSETRON 4MG/2ML VIAL IV PRN (15:52)
[2025-01-18] MEDS ORDERED: DEXTROSE 50% 50 ML SYRINGE IV PRN (17:30)
[2025-01-18] MEDS ORDERED: GLUCOSE 4 GM CHEW PO PRN (17:30)
[2025-01-18] MEDS ORDERED: GLUCAGON INJ 1 MG VIAL SC PRN (17:30)
[2025-01-18] MEDS: INSULIN LISPRO (NovoLOG) PER UNIT SC SCH ×2 (18:38→20:25)
[2025-01-19] VITALS (26 sets, daily range): BP systolic 122–171; BP diastolic 60–95; TEMP 96.4–98.5; O2SAT 89–97
[2025-01-19 05:30] LABS: PLATELET COUNT, AUTOMATED 145 10^3/uL (150-450)
[2025-01-19] MEDS: IPRATROPIUM 0.5 MG/ALBUTEROL 2.5 MG INH SOL UD 3 ML NEB ONE (08:08)
[2025-01-19] MEDS: LEVALBUTEROL 1.25 MG 0.5ML CONCENTRATE NEB NEB ONE (08:08)
[2025-01-19] MEDS: LEVALBUTEROL 1.25 MG 0.5ML CONCENTRATE NEB INH SCH (11:15)
[2025-01-20] VITALS (10 sets, daily range): BP systolic 118–135; BP diastolic 68–83; TEMP 97.1–98.1; O2SAT 91–97
[2025-01-20] MEDS: DOCUSATE SODIUM 100 MG CAPSULE PO SCH (10:10)
[2025-01-20] MEDS: FUROSEMIDE 20 MG/2 ML VIAL IV ONE (11:38)
[2025-01-20] MEDS: SENNA 8.6 MG TAB PO SCH (20:16)
[2025-01-21] VITALS (12 sets, daily range): BP systolic 126–139; BP diastolic 73–89; TEMP 97.2–98.3; O2SAT 90–100
[2025-01-21] MEDS: SODIUM CHLORIDE HYPERTONIC 3% 4ML NEB SOL INH SCH (07:54)
[2025-01-22] VITALS (13 sets, daily range): BP systolic 132–143; BP diastolic 71–84; TEMP 97.3–98.7; O2SAT 90–98
[2025-01-22 05:19] LABS: BASO # 0.0 10^3/uL (0.0-0.2); BASO % 0.4 % (0.0-1.0); EOS # 0.0 10^3/uL (0.0-0.5); EOS % 0.0 % (0.0-3.0); LYMPH # 0.6 10^3/uL (1.5-5.0); LYMPH % 7.7 % (24.0-44.0); MONO # 0.5 10^3/uL (0.0-0.8); MONO % 6.3 % (2.0-8.0); NEUTROPHILS # 6.4 10^3/uL (1.5-8.5); NEUTROPHILS % 81.7 % (36.0-66.0); PLATELET COUNT, AUTOMATED 170 10^3/uL (150-450)
[2025-01-22 05:47] LABS: CALCIUM LEVEL 9.1 MG/DL (8.3-10.6); CARBON DIOXIDE LEVEL 33.0 MMOL/L (20-31); CHLORIDE LEVEL 95.0 MMOL/L (98-107); CREATININE FOR GFR 0.93 MG/DL (0.70-1.30); GLOMERULAR FILTRATION RATE 88.3 (>42); POTASSIUM SERUM 4.2 MMOL/L (3.5-5.1); SODIUM LEVEL 136.0 MMOL/L (136-145)
[2025-01-22] MEDS: ALPRAZolam 0.5 MG TAB PO PRN (20:52)
[2025-01-23] VITALS (17 sets, daily range): BP systolic 126–142; BP diastolic 76–96; TEMP 96.6–97.9; O2SAT 90–96
[2025-01-23 06:09] LABS: BASO # 0.0 10^3/uL (0.0-0.2); BASO % 0.5 % (0.0-1.0); EOS # 0.0 10^3/uL (0.0-0.5); EOS % 0.1 % (0.0-3.0); LYMPH # 0.7 10^3/uL (1.5-5.0); LYMPH % 8.8 % (24.0-44.0); MONO # 0.5 10^3/uL (0.0-0.8); MONO % 6.1 % (2.0-8.0); NEUTROPHILS # 6.4 10^3/uL (1.5-8.5); NEUTROPHILS % 80.7 % (36.0-66.0); PLATELET COUNT, AUTOMATED 192 10^3/uL (150-450)
[2025-01-23 06:43] LABS: CALCIUM LEVEL 9.3 MG/DL (8.3-10.6); CARBON DIOXIDE LEVEL 32 MMOL/L (20-31); CHLORIDE LEVEL 94 MMOL/L (98-107); CREATININE FOR GFR 0.91 MG/DL (0.70-1.30); GLOMERULAR FILTRATION RATE > 90.0 (>42); POTASSIUM SERUM 4.3 MMOL/L (3.5-5.1); SODIUM LEVEL 137 MMOL/L (136-145)
[2025-01-23] MEDS: RAMELTEON 8 MG TAB PO PRN (21:03)
[2025-01-24] VITALS (14 sets, daily range): BP systolic 104–142; BP diastolic 71–85; TEMP 96.4–97.9; O2SAT 90–98
[2025-01-24 05:08] LABS: BASO # 0.0 10^3/uL (0.0-0.2); BASO % 0.3 % (0.0-1.0); EOS # 0.0 10^3/uL (0.0-0.5); EOS % 0.0 % (0.0-3.0); LYMPH # 0.7 10^3/uL (1.5-5.0); LYMPH % 7.7 % (24.0-44.0); MONO # 0.5 10^3/uL (0.0-0.8); MONO % 5.9 % (2.0-8.0); NEUTROPHILS # 7.1 10^3/uL (1.5-8.5); NEUTROPHILS % 82.3 % (36.0-66.0); PLATELET COUNT, AUTOMATED 217 10^3/uL (150-450)
[2025-01-24 05:28] LABS: CALCIUM LEVEL 9.1 MG/DL (8.3-10.6); CARBON DIOXIDE LEVEL 32 MMOL/L (20-31); CHLORIDE LEVEL 95 MMOL/L (98-107); CREATININE FOR GFR 0.86 MG/DL (0.70-1.30); GLOMERULAR FILTRATION RATE > 90.0 (>42); POTASSIUM SERUM 4.0 MMOL/L (3.5-5.1); SODIUM LEVEL 138 MMOL/L (136-145)
[2025-01-25 04:27] VITALS: BP 122/75; TEMP 97.7; O2SAT 94
[2025-01-25 05:18] LABS: BASO # 0.0 10^3/uL (0.0-0.2); BASO % 0.1 % (0.0-1.0); EOS # 0.0 10^3/uL (0.0-0.5); EOS % 0.1 % (0.0-3.0); LYMPH # 0.8 10^3/uL (1.5-5.0); LYMPH % 7.1 % (24.0-44.0); MONO # 0.6 10^3/uL (0.0-0.8); MONO % 5.3 % (2.0-8.0); NEUTROPHILS # 9.3 10^3/uL (1.5-8.5); NEUTROPHILS % 85.6 % (36.0-66.0); PLATELET COUNT, AUTOMATED 193 10^3/uL (150-450)
[2025-01-25 05:41] LABS: CALCIUM LEVEL 8.6 MG/DL (8.3-10.6); CARBON DIOXIDE LEVEL 31 MMOL/L (20-31); CHLORIDE LEVEL 92 MMOL/L (98-107); CREATININE FOR GFR 0.84 MG/DL (0.70-1.30); GLOMERULAR FILTRATION RATE > 90.0 (>42); POTASSIUM SERUM 3.9 MMOL/L (3.5-5.1); SODIUM LEVEL 135 MMOL/L (136-145)
[2025-01-25 08:02] VITALS: TEMP 97.8; O2SAT 94
[2025-01-25 08:19] VITALS: BP 135/75
[2025-01-25 11:44] VITALS: BP 137/77; TEMP 97.6; O2SAT 92
[2025-01-25 16:06] VITALS: BP 116/74; TEMP 97.8; O2SAT 91
[2025-01-25 20:00] VITALS: BP 122/77; TEMP 97.1; O2SAT 88
[2025-01-26] VITALS: BP 129/85; TEMP 96.7; O2SAT 97
[2025-01-26 04:00] VITALS: BP 118/73; TEMP 96.7; O2SAT 97
[2025-01-26 05:46] LABS: BASO # 0.0 10^3/uL (0.0-0.2); BASO % 0.3 % (0.0-1.0); EOS # 0.0 10^3/uL (0.0-0.5); EOS % 0.1 % (0.0-3.0); LYMPH # 0.7 10^3/uL (1.5-5.0); LYMPH % 8.9 % (24.0-44.0); MONO # 0.4 10^3/uL (0.0-0.8); MONO % 4.9 % (2.0-8.0); NEUTROPHILS # 6.4 10^3/uL (1.5-8.5); NEUTROPHILS % 83.6 % (36.0-66.0); PLATELET COUNT, AUTOMATED 200 10^3/uL (150-450)
[2025-01-26 06:08] LABS: CALCIUM LEVEL 8.9 MG/DL (8.3-10.6); CARBON DIOXIDE LEVEL 32 MMOL/L (20-31); CHLORIDE LEVEL 95 MMOL/L (98-107); CREATININE FOR GFR 0.85 MG/DL (0.70-1.30); GLOMERULAR FILTRATION RATE > 90.0 (>42); POTASSIUM SERUM 4.0 MMOL/L (3.5-5.1); SODIUM LEVEL 137 MMOL/L (136-145)
[2025-01-26 07:34] VITALS: BP 119/70; TEMP 97.5; O2SAT 95
[2025-01-26] MEDS: MOM 30 ML SUSPENSION UDC PO PRN (08:57)
[2025-01-26 12:00] VITALS: BP 124/74; TEMP 97.4; O2SAT 95
[2025-01-26] MEDS ORDERED: SODIUM CHLORIDE NASAL 0.65% SPRAY BTL (OCEAN) PRN (15:55)
[2025-01-26 16:10] VITALS: BP 129/68; TEMP 97; O2SAT 95
[2025-01-26 19:40] VITALS: BP 126/72; TEMP 97.7; O2SAT 94
[2025-01-27 00:41] VITALS: BP 129/77; TEMP 97.2; O2SAT 91
[2025-01-27 04:22] VITALS: BP 123/64; TEMP 97; O2SAT 91
[2025-01-27 06:05] LABS: BASO # 0.0 10^3/uL (0.0-0.2); BASO % 0.1 % (0.0-1.0); EOS # 0.0 10^3/uL (0.0-0.5); EOS % 0.1 % (0.0-3.0); LYMPH # 0.5 10^3/uL (1.5-5.0); LYMPH % 7.4 % (24.0-44.0); MONO # 0.4 10^3/uL (0.0-0.8); MONO % 5.4 % (2.0-8.0); NEUTROPHILS # 6.2 10^3/uL (1.5-8.5); NEUTROPHILS % 85.6 % (36.0-66.0); PLATELET COUNT, AUTOMATED 178 10^3/uL (150-450)
[2025-01-27 06:40] LABS: CALCIUM LEVEL 8.7 MG/DL (8.3-10.6); CARBON DIOXIDE LEVEL 31 MMOL/L (20-31); CHLORIDE LEVEL 98 MMOL/L (98-107); CREATININE FOR GFR 0.81 MG/DL (0.70-1.30); GLOMERULAR FILTRATION RATE > 90.0 (>42); POTASSIUM SERUM 4.3 MMOL/L (3.5-5.1); SODIUM LEVEL 138 MMOL/L (136-145)
[2025-01-27 08:32] VITALS: BP 122/75; TEMP 96.9; O2SAT 98
[2025-01-27 12:30] VITALS: BP 122/62; TEMP 98; O2SAT 98
[2025-01-27 16:54] VITALS: BP 137/79; TEMP 97.3; O2SAT 94
[2025-01-27 19:22] VITALS: BP 123/73; TEMP 97; O2SAT 94
[2025-01-28] VITALS (11 sets, daily range): BP systolic 139–155; BP diastolic 69–78; TEMP 97.2–98.2; O2SAT 86–96
[2025-01-28 06:01] LABS: BASO # 0.0 10^3/uL (0.0-0.2); BASO % 0.1 % (0.0-1.0); EOS # 0.0 10^3/uL (0.0-0.5); EOS % 0.1 % (0.0-3.0); LYMPH # 0.7 10^3/uL (1.5-5.0); LYMPH % 7.7 % (24.0-44.0); MONO # 0.4 10^3/uL (0.0-0.8); MONO % 5.0 % (2.0-8.0); NEUTROPHILS # 7.5 10^3/uL (1.5-8.5); NEUTROPHILS % 86.2 % (36.0-66.0); PLATELET COUNT, AUTOMATED 167 10^3/uL (150-450)
[2025-01-28 06:29] LABS: CALCIUM LEVEL 8.9 MG/DL (8.3-10.6); CARBON DIOXIDE LEVEL 30 MMOL/L (20-31); CHLORIDE LEVEL 96 MMOL/L (98-107); CREATININE FOR GFR 0.73 MG/DL (0.70-1.30); GLOMERULAR FILTRATION RATE > 90.0 (>42); POTASSIUM SERUM 4.0 MMOL/L (3.5-5.1); SODIUM LEVEL 136 MMOL/L (136-145)
[2025-01-28] MEDS: LanTUS (INSULIN GLARGINE INJ) 1 UNITS/0.01 ML SC SCH (20:44)
[2025-01-29] VITALS (23 sets, daily range): BP systolic 122–157; BP diastolic 65–82; TEMP 97–98.7; O2SAT 88–99
[2025-01-29 06:16] LABS: BASO # 0.0 10^3/uL (0.0-0.2); BASO % 0.1 % (0.0-1.0); EOS # 0.0 10^3/uL (0.0-0.5); EOS % 0.1 % (0.0-3.0); LYMPH # 0.8 10^3/uL (1.5-5.0); LYMPH % 11.6 % (24.0-44.0); MONO # 0.5 10^3/uL (0.0-0.8); MONO % 6.5 % (2.0-8.0); NEUTROPHILS # 5.5 10^3/uL (1.5-8.5); NEUTROPHILS % 79.8 % (36.0-66.0); PLATELET COUNT, AUTOMATED 176 10^3/uL (150-450)
[2025-01-29 06:40] LABS: CALCIUM LEVEL 8.3 MG/DL (8.3-10.6); CARBON DIOXIDE LEVEL 32 MMOL/L (20-31); CHLORIDE LEVEL 98 MMOL/L (98-107); CREATININE FOR GFR 0.68 MG/DL (0.70-1.30); GLOMERULAR FILTRATION RATE > 90.0 (>42); POTASSIUM SERUM 3.7 MMOL/L (3.5-5.1); SODIUM LEVEL 138 MMOL/L (136-145)
[2025-01-29] MEDS ORDERED: ACETYLCYSTEINE 20% 4 ML VIAL (200 MG/ML) INH SCH (10:00)
[2025-01-29] MEDS ORDERED: IPRATROPIUM 0.5 MG/2.5 ML (0.02%) SOLN NEB INH SCH (10:00)
[2025-01-29] MEDS: DOXYCYCLINE HYCLATE 100 MG TABLET PO SCH (10:00)
[2025-01-29] MEDS: LanTUS (INSULIN GLARGINE INJ) 1 UNITS/0.01 ML SC SCH (20:59)
[2025-01-30] VITALS (17 sets, daily range): BP systolic 127–139; BP diastolic 63–73; TEMP 97–97.3; O2SAT 89–98
[2025-01-30] MEDS: predniSONE 20 MG TAB PO SCH (08:22)
[2025-01-30] MEDS: LEVALBUTEROL 1.25 MG 0.5ML CONCENTRATE NEB INH SCH (08:47)
[2025-01-30] MEDS: IPRATROPIUM 0.5 MG/2.5 ML (0.02%) SOLN NEB INH SCH (08:47)
[2025-01-30] MEDS: ADVAIR HFA 230/21 MCG INHALER INH SCH (08:54)
[2025-01-30] MEDS: ACETYLCYSTEINE 20% 4 ML VIAL (200 MG/ML) INH SCH (08:54)
[2025-01-30] MEDS: MIRALAX *UNIT DOSE* 17 GM PACKET PO SCH (16:55)
[2025-01-31] VITALS (26 sets, daily range): BP systolic 110–132; BP diastolic 56–74; TEMP 97–97.3; O2SAT 91–98
[2025-01-31 06:18] LABS: ABG BASE EXCESS 3.1 (-2.0-2.0); ABG HCO3 26.5 MMOL/L (22.0-26.0); ABG O2 SATURATION 96.6 % (95.0-99.0); ABG PARTIAL PRESSURE CO2 36.5 mmHg (35.0-45.0); ABG PARTIAL PRESSURE O2 92.5 mmHg (75.0-100.0); ABG STANDARD HCO3 27.2 MMOL/L. (22.0-26.0); ABG TOTAL CO2 27.6 MMOL/L (23.0-31.0); ABG pH (ARTERIAL) 7.479 UNITS (7.350-7.450)
[2025-02-01] VITALS (26 sets, daily range): BP systolic 122–158; BP diastolic 68–78; TEMP 97.1–98.6; O2SAT 88–99
[2025-02-01] MEDS: predniSONE 20 MG TAB PO SCH (09:23)
[2025-02-01] MEDS: LanTUS (INSULIN GLARGINE INJ) 1 UNITS/0.01 ML SC SCH (20:51)
[2025-02-02 03:59] VITALS: BP 138/65; TEMP 97.3; O2SAT 93
[2025-02-02 08:16] VITALS: BP 126/70
[2025-02-02 10:53] LABS: BASO # 0.0 10^3/uL (0.0-0.2); BASO % 0.1 % (0.0-1.0); EOS # 0.0 10^3/uL (0.0-0.5); EOS % 0.0 % (0.0-3.0); LYMPH # 0.3 10^3/uL (1.5-5.0); LYMPH % 3.3 % (24.0-44.0); MONO # 0.3 10^3/uL (0.0-0.8); MONO % 3.2 % (2.0-8.0); NEUTROPHILS # 8.9 10^3/uL (1.5-8.5); NEUTROPHILS % 91.8 % (36.0-66.0); PLATELET COUNT, AUTOMATED 164 10^3/uL (150-450)
[2025-02-02 11:20] LABS: CALCIUM LEVEL 8.7 MG/DL (8.3-10.6); CARBON DIOXIDE LEVEL 32 MMOL/L (20-31); CHLORIDE LEVEL 97 MMOL/L (98-107); CREATININE FOR GFR 0.74 MG/DL (0.70-1.30); GLOMERULAR FILTRATION RATE > 90.0 (>42); POTASSIUM SERUM 4.4 MMOL/L (3.5-5.1); SODIUM LEVEL 139 MMOL/L (136-145)
[2025-02-02 11:26] VITALS: BP 129/62; TEMP 98.7; O2SAT 93
[2025-02-02 20:00] VITALS: BP 132/70; TEMP 97; O2SAT 96
[2025-02-03 04:00] VITALS: BP 120/68; TEMP 98.1; O2SAT 92
[2025-02-03 13:32] VITALS: BP 136/76; TEMP 98.5; O2SAT 97
[2025-02-03] MEDS: LACTULOSE 20 GM/30 ML SYRUP UDC PO ONE (14:02)
[2025-02-03 21:16] VITALS: BP 117/66; TEMP 98.3; O2SAT 92
[2025-02-04 05:12] VITALS: BP 133/77; TEMP 97.9; O2SAT 92
[2025-02-04 06:25] LABS: BASO # 0.0 10^3/uL (0.0-0.2); BASO % 0.3 % (0.0-1.0); EOS # 0.0 10^3/uL (0.0-0.5); EOS % 0.1 % (0.0-3.0); LYMPH # 0.9 10^3/uL (1.5-5.0); LYMPH % 13.1 % (24.0-44.0); MONO # 0.4 10^3/uL (0.0-0.8); MONO % 5.0 % (2.0-8.0); NEUTROPHILS # 5.7 10^3/uL (1.5-8.5); NEUTROPHILS % 80.1 % (36.0-66.0); PLATELET COUNT, AUTOMATED 153 10^3/uL (150-450)
[2025-02-04 06:50] LABS: CALCIUM LEVEL 8.7 MG/DL (8.3-10.6); CARBON DIOXIDE LEVEL 31 MMOL/L (20-31); CHLORIDE LEVEL 100 MMOL/L (98-107); CREATININE FOR GFR 0.75 MG/DL (0.70-1.30); GLOMERULAR FILTRATION RATE > 90.0 (>42); POTASSIUM SERUM 4.1 MMOL/L (3.5-5.1); SODIUM LEVEL 140 MMOL/L (136-145)
[2025-02-04 08:11] VITALS: BP 150/74
[2025-02-04 12:00] VITALS: BP 144/76; TEMP 98.6; O2SAT 95
[2025-02-04 20:20] VITALS: BP 135/64; TEMP 98.7; O2SAT 95
[2025-02-05 05:15] VITALS: BP 144/77; TEMP 97.2; O2SAT 94
[2025-02-05 12:00] VITALS: BP 146/71; TEMP 97.5; O2SAT 95
[2025-02-05] MEDS: IPRATROPIUM 0.5 MG/ALBUTEROL 2.5 MG INH SOL UD 3 ML NEB ONE (12:00)
[2025-02-05] MEDS: LIDOCAINE 5% OINT 30 GM TUBE TOP SCH (17:33)
[2025-02-05 21:20] VITALS: BP 131/73; TEMP 98.6; O2SAT 97
[2025-02-06 05:01] VITALS: BP 132/72; TEMP 98.5; O2SAT 94
[2025-02-06] MEDS ORDERED: PRED10TA2 PO (08:35)
[2025-02-06 08:55] VITALS: BP 133/59
[2025-02-06] MEDS: IPRATROPIUM 0.5 MG/ALBUTEROL 2.5 MG INH SOL UD 3 ML NEB SCH (09:21)
[2025-02-06 11:33] VITALS: BP 149/74; TEMP 98.7; O2SAT 95
== END 2025-02-06 14:17 | disposition home health service (06) | DRG 189 ==
LOC: EDBD 14:18 → M ED 14:18 → M ED INP 20:53 → M ICU 22:12 → M PCU 01-21 17:53 → M MSPAV 02-01 18:26
PROVIDERS: ADMIT Internal Medicine; ATTEND General Practice
DX: J96.21 Acute and chronic respiratory failure with hypoxia (principal); J44.1 Chronic obstructive pulmonary disease with (acute) exacerbation; J96.22 Acute and chronic respiratory failure with hypercapnia; B97.4 Respiratory syncytial virus as the cause of diseases classified elsewhere; I10 Essential (primary) hypertension; K21.9 Gastro-esophageal reflux disease without esophagitis; G47.33 Obstructive sleep apnea (adult) (pediatric); F41.9 Anxiety disorder, unspecified; G25.81 Restless legs syndrome; J43.1 Panlobular emphysema; N40.0 Benign prostatic hyperplasia without lower urinary tract symptoms; G89.29 Other chronic pain; Z88.7 Allergy status to serum and vaccine; Z88.8 Allergy status to other drugs, medicaments and biological substances; Z79.899 Other long term (current) drug therapy; G43.909 Migraine, unspecified, not intractable, without status migrainosus; E11.51 Type 2 diabetes mellitus with diabetic peripheral angiopathy without gangrene; D69.6 Thrombocytopenia, unspecified; F29 Unspecified psychosis not due to a substance or known physiological condition; K59.00 Constipation, unspecified; E11.65 Type 2 diabetes mellitus with hyperglycemia

== ENCOUNTER 2025-03-14 21:15 | Inpatient (IN) | payer MEDICARE ==
[~2025-03-14] VITALS: Ht 157.5 cm; Wt 56.3 kg
[~2025-03-14 21:15] MED LIST changes: +ACET20%4ML INH; +BUDE2SUS3 INH; -BUDE2SUS3 NEB
[2025-03-14] MEDS: IPRATROPIUM 0.5 MG/ALBUTEROL 2.5 MG INH SOL UD 3 ML NEB PRN (21:45)
[2025-03-14 21:48] LABS: ABG BASE EXCESS 5.9 (-2.0-2.0); ABG HCO3 28.6 MMOL/L (22.0-26.0); ABG O2 SATURATION 97.0 % (95.0-99.0); ABG PARTIAL PRESSURE CO2 35.6 mmHg (35.0-45.0); ABG PARTIAL PRESSURE O2 91.9 mmHg (75.0-100.0); ABG STANDARD HCO3 29.8 MMOL/L. (22.0-26.0); ABG TOTAL CO2 29.7 MMOL/L (23.0-31.0); ABG pH (ARTERIAL) 7.523 UNITS (7.350-7.450)
[2025-03-14 22:11] LABS: CK-MB VALUE MASS 2.2 NG/ML (<3.6)
[2025-03-14 22:12] LABS: BASO # 0.0 10^3/uL (0.0-0.2); BASO % 0.1 % (0.0-1.0); CPK CREATINE PHOSPHOKINASE 41 U/L (46-171); EOS # 0.0 10^3/uL (0.0-0.5); EOS % 0.0 % (0.0-3.0); LYMPH # 0.5 10^3/uL (1.5-5.0); LYMPH % 2.7 % (24.0-44.0); MB/CK RELATIVE INDEX 5.36 (< OR =4); MONO # 0.9 10^3/uL (0.0-0.8); MONO % 4.9 % (2.0-8.0); NEUTROPHILS # 15.9 10^3/uL (1.5-8.5); NEUTROPHILS % 91.8 % (36.0-66.0); PLATELET COUNT, AUTOMATED 222 10^3/uL (150-450)
[2025-03-14 22:13] LABS: ALT/SGPT 16 U/L (7.0-40); AST/SGOT 11 U/L (<34); CALCIUM LEVEL 8.8 MG/DL (8.3-10.6); CARBON DIOXIDE LEVEL 30 MMOL/L (20-31); CHLORIDE LEVEL 93 MMOL/L (98-107); CREATININE FOR GFR 0.84 MG/DL (0.70-1.30); GLOMERULAR FILTRATION RATE > 90.0 (>42); POTASSIUM SERUM 4.5 MMOL/L (3.5-5.1); SODIUM LEVEL 133 MMOL/L (136-145)
[2025-03-14] MEDS ORDERED: ISOVUE-370 76% 100 ML VIAL As Ordered ONE (23:37)
[2025-03-15 02:25] LABS: CK-MB VALUE MASS 1.3 NG/ML (<3.6)
[2025-03-15 02:26] LABS: CPK CREATINE PHOSPHOKINASE 39.0 U/L (46-171); MB/CK RELATIVE INDEX 3.33 (< OR =4)
[2025-03-15] MEDS: PIPERACILLIN/TAZOBACTAM SOD 4.5 GM in DEXTROSE 5% (D5W) ADV/MINI-BAG 50 ML IV ONE (05:21)
[2025-03-15] MEDS ORDERED: ALBUTEROL SULFATE 2.5 MG/0.5 ML INH CONCENTRATE NEB SOLN NEB PRN (05:35)
[2025-03-15] MEDS ORDERED: MOM 30 ML SUSPENSION UDC PO PRN (05:40)
[2025-03-15] MEDS ORDERED: GLUCAGON INJ 1 MG VIAL SC PRN (05:40)
[2025-03-15] MEDS ORDERED: ACETAMINOPHEN 325 MG TAB PO PRN (05:40)
[2025-03-15] MEDS ORDERED: DEXTROSE 50% 50 ML SYRINGE IV PRN (05:40)
[2025-03-15] MEDS ORDERED: GLUCOSE 4 GM CHEW PO PRN (05:40)
[2025-03-15] MEDS: NS 500 ML IV ONE (06:25)
[2025-03-15] MEDS: INSULIN LISPRO (NovoLOG) PER UNIT SC SCH ×2 (08:06→20:40)
[2025-03-15] MEDS: DOXYCYCLINE HYCLATE 100 MG TABLET PO SCH (08:06)
[2025-03-15] MEDS: predniSONE 20 MG TAB PO SCH (08:06)
[2025-03-15] MEDS: PANTOPRAZOLE 40MG TAB PO SCH (08:06)
[2025-03-15] MEDS: ACETYLCYSTEINE 20% 4 ML VIAL (200 MG/ML) INH SCH (08:20)
[2025-03-15] MEDS: IPRATROPIUM 0.5 MG/ALBUTEROL 2.5 MG INH SOL UD 3 ML NEB SCH (08:20)
[2025-03-15 08:45] VITALS: BP 127/84; TEMP 98.8; O2SAT 97
[2025-03-15] MEDS: cefTRIAXone SOD 1 GM in DEXTROSE 5% (D5W) ADV/MINI-BAG 50 ML IV SCH (09:03)
[2025-03-15 11:50] VITALS: BP 121/68; TEMP 98.3; O2SAT 99
[2025-03-15] MEDS ORDERED: PRED10TA2 PO (13:27)
[2025-03-15] MEDS ORDERED: HOME MED LIST COMPLETE! XX SCH (13:30)
[2025-03-15] MEDS: SERTRALINE 100 MG TAB PO SCH (14:42)
[2025-03-15] MEDS: MAGNESIUM OXIDE 400 MG TAB PO SCH (14:42)
[2025-03-15] MEDS: ENOXAPARIN 40 MG/0.4 ML SYRINGE (J1650 PER 10MG) SC SCH (14:43)
[2025-03-15] MEDS: SPIRONOLACTONE 50 MG TAB PO SCH (14:45)
[2025-03-15] MEDS: FUROSEMIDE 40 MG TAB PO SCH (14:45)
[2025-03-15] MEDS: TIOTROPIUM BROM 2.5MCG/ACTUATION 4GM INH INH SCH (15:01)
[2025-03-15] MEDS: ADVAIR HFA 230/21 MCG INHALER INH SCH (15:01)
[2025-03-15 20:20] VITALS: BP 102/55; TEMP 98.5; O2SAT 93
[2025-03-15] MEDS: TAMSULOSIN 0.4 MG CAP PO SCH (20:39)
[2025-03-15] MEDS: LORATADINE 10 MG TAB PO SCH (20:40)
[2025-03-15] MEDS: rOPINIRole 0.25 MG TAB PO SCH (20:40)
[2025-03-15] MEDS: dilTIAZem 120 MG **CD** CAPSULE PO SCH (21:00)
[2025-03-16 03:51] VITALS: BP 127/73; TEMP 98.1; O2SAT 98
[2025-03-16 06:38] LABS: BASO # 0.0 10^3/uL (0.0-0.2); BASO % 0.1 % (0.0-1.0); EOS # 0.0 10^3/uL (0.0-0.5); EOS % 0.1 % (0.0-3.0); LYMPH # 0.5 10^3/uL (1.5-5.0); LYMPH % 5.4 % (24.0-44.0); MONO # 0.7 10^3/uL (0.0-0.8); MONO % 7.3 % (2.0-8.0); NEUTROPHILS # 8.1 10^3/uL (1.5-8.5); NEUTROPHILS % 86.4 % (36.0-66.0); PLATELET COUNT, AUTOMATED 180 10^3/uL (150-450)
[2025-03-16 07:09] LABS: CALCIUM LEVEL 8.1 MG/DL (8.3-10.6); CARBON DIOXIDE LEVEL 30 MMOL/L (20-31); CHLORIDE LEVEL 96 MMOL/L (98-107); CREATININE FOR GFR 0.91 MG/DL (0.70-1.30); GLOMERULAR FILTRATION RATE > 90.0 (>42); POTASSIUM SERUM 3.8 MMOL/L (3.5-5.1); SODIUM LEVEL 137 MMOL/L (136-145)
[2025-03-16 12:00] VITALS: BP 136/75; TEMP 98.7; O2SAT 90
[2025-03-16] MEDS: ONDANSETRON 4MG/2ML VIAL IV PRN (12:14)
[2025-03-16 20:47] VITALS: BP 127/73; TEMP 97.7; O2SAT 95
[2025-03-17] MEDS: ALPRAZolam 0.5 MG TAB PO PRN (02:49)
[2025-03-17 04:50] VITALS: BP 117/63; TEMP 98.4; O2SAT 98
[2025-03-17 06:27] LABS: BASO # 0.0 10^3/uL (0.0-0.2); BASO % 0.2 % (0.0-1.0); EOS # 0.0 10^3/uL (0.0-0.5); EOS % 0.1 % (0.0-3.0); LYMPH # 0.5 10^3/uL (1.5-5.0); LYMPH % 5.2 % (24.0-44.0); MONO # 0.6 10^3/uL (0.0-0.8); MONO % 6.4 % (2.0-8.0); NEUTROPHILS # 8.0 10^3/uL (1.5-8.5); NEUTROPHILS % 87.1 % (36.0-66.0); PLATELET COUNT, AUTOMATED 175 10^3/uL (150-450)
[2025-03-17 06:28] LABS: CALCIUM LEVEL 8.4 MG/DL (8.3-10.6); CARBON DIOXIDE LEVEL 30 MMOL/L (20-31); CHLORIDE LEVEL 100 MMOL/L (98-107); CREATININE FOR GFR 0.90 MG/DL (0.70-1.30); GLOMERULAR FILTRATION RATE > 90.0 (>42); POTASSIUM SERUM 4.0 MMOL/L (3.5-5.1); SODIUM LEVEL 139 MMOL/L (136-145)
[2025-03-17 11:52] VITALS: BP 128/61; TEMP 98.6; O2SAT 94
[2025-03-17 19:58] VITALS: BP 143/65; TEMP 98.3; O2SAT 96
[2025-03-18 04:24] VITALS: BP 121/61; TEMP 97.9; O2SAT 85
[2025-03-18] MEDS ORDERED: SENNA 8.6 MG TAB PO PRN (08:50)
[2025-03-18] MEDS: MIRALAX *UNIT DOSE* 17 GM PACKET PO PRN (09:01)
[2025-03-18 11:54] VITALS: BP 143/66; TEMP 98.9; O2SAT 93
[2025-03-18] MEDS: LACTULOSE 20 GM/30 ML SYRUP UDC PO ONE (16:17)
[2025-03-18 19:32] VITALS: BP 133/66; TEMP 98.2; O2SAT 94
[2025-03-19 06:52] VITALS: BP 112/62; TEMP 97.6; O2SAT 94
[2025-03-19 11:55] VITALS: BP 139/65; TEMP 98.7; O2SAT 97
[2025-03-19] MEDS: LACTULOSE 20 GM/30 ML SYRUP UDC PO PRN (18:18)
[2025-03-19 20:27] VITALS: BP 152/82; TEMP 98.4; O2SAT 95
[2025-03-20] MEDS ORDERED: AUGMENTIN 875 MG TAB PO SCH
[2025-03-20 04:40] VITALS: BP 145/77; TEMP 98; O2SAT 95
[2025-03-20] MEDS: AUGMENTIN 875 MG TAB PO SCH (08:25)
[2025-03-20 08:27] VITALS: BP 122/60
[2025-03-20] MEDS ORDERED: PRED20TA PO (09:52)
[2025-03-20] MEDS ORDERED: AMOX875T2 PO (09:52)
[2025-03-20] MEDS ORDERED: LACT20EL PO (09:52)
[2025-03-20 13:26] VITALS: BP 145/78; TEMP 99; O2SAT 97
== END 2025-03-20 14:34 | disposition home or self-care (01) | DRG 871 ==
LOC: EDBD 21:15 → M ED 21:15 → M ED INP 03-15 05:37 → M MSPAV 03-15 08:45
PROVIDERS: ADMIT Student in an Organized Health Care Education/Training Program; ATTEND Student in an Organized Health Care Education/Training Program
DX: A41.9 Sepsis, unspecified organism (principal); J18.9 Pneumonia, unspecified organism; J96.21 Acute and chronic respiratory failure with hypoxia; I50.32 Chronic diastolic (congestive) heart failure; J44.0 Chronic obstructive pulmonary disease with (acute) lower respiratory infection; J44.1 Chronic obstructive pulmonary disease with (acute) exacerbation; E11.51 Type 2 diabetes mellitus with diabetic peripheral angiopathy without gangrene; I11.0 Hypertensive heart disease with heart failure; M19.90 Unspecified osteoarthritis, unspecified site; K21.9 Gastro-esophageal reflux disease without esophagitis; N40.0 Benign prostatic hyperplasia without lower urinary tract symptoms; F32.A Depression, unspecified; F41.9 Anxiety disorder, unspecified; Z98.41 Cataract extraction status, right eye; Z98.42 Cataract extraction status, left eye; Z87.891 Personal history of nicotine dependence; R65.20 Severe sepsis without septic shock; Z79.899 Other long term (current) drug therapy; Z88.8 Allergy status to other drugs, medicaments and biological substances; Z88.7 Allergy status to serum and vaccine